=== PATIENT | female | born 1935 | race Caucasian/White ===

== ENCOUNTER 2016-08-06 09:32 | Emergency (ER) | payer OTHER ==
[~2016-08-06] VITALS: Wt 68.0 kg
[~2016-08-06 09:32] MED LIST: ALBU8.5H3 INH; ALEN70TA30 PO; LEVO75TA5 PO; MECL12.574 PO; METO-448 PO
== END 2016-08-06 14:39 | disposition left against medical advice (07) ==
LOC: E/R 09:32
DX: Z53.21 Procedure and treatment not carried out due to patient leaving prior to being seen by health care provider (principal)

== ENCOUNTER 2016-08-06 16:46 | Inpatient (IN) | payer MEDICARE, OTHER ==
[~2016-08-06] VITALS: Ht 157.5 cm; Wt 71.0 kg
[2016-08-06] MEDS ORDERED: ALBUTEROL 0.083% (NEB) 2.5 MG/3 ML AMP INH STA (18:58)
[2016-08-06] MEDS ORDERED: ASPIRIN 325 MG TAB PO STA (18:58)
[2016-08-06] MEDS ORDERED: IPRATROPIUM (NEB) 0.5 MG/2.5 ML AMP INH STA (18:58)
[2016-08-06] MEDS ORDERED: DILTIAZEM-D5W 125MG/125ML DRIP 125 ML IV SCH (19:00)
--- NOTE | 2016-08-06 19:05 | ERA ---
ER Documentation Chief Complaint Date/Time DATE: 08/06/16 TIME: 19:02 Chief Complaint COUGH AND SOB WITH HEADACHE NO CHEST PAIN . MILD DISTRESS. TACHYCARDIC HPI Patient is an 80-year-old female who reports palpitations with dyspnea and cough productive of green phlegm for the last several days. The daughter says she has had a lot of anxiety with this. They saw the care professionals today who told them that she needed a nebulizer. The daughter says that they spoke with her primary care physician who gave her an inhaler but this did not help her symptoms. She reports having had a fever several days ago it was low-grade according to the daughter. She is also had a sore throat with some rhinorrhea. No nausea, vomiting, or diarrhea. Nothing seems to make the symptoms better or worse. She has not been around a when he has been sick. She has not traveled out of the country nor she been on any antibiotic therapy. The remainder of the systems are negative. ROS All systems reviewed and are negative except as per history of present illness. Medications Home Meds Active Scripts Albuterol Sulfate* (Proair HFA*) 8.5 Gm Hfa.aer.ad, 2 PUFF INH Q4H Y for WHEEZING AND SOB, #1 INHALER Prov:DESIRAE YEAGER MD 03/01/16 Reported Medications Levothyroxine Sodium* (Levothyroxine Sodium*) 75 Mcg Tablet, 75 MCG PO BEFORE BREAKFAST, #30 TAB 02/28/16 Alendronate Sodium* (Fosamax*) 70 Mg Tablet, 70 MG PO Q7D, TAB 11/08/14 Metoprolol Tartrate* (Lopressor*) 25 Mg Tab, 25 MG PO BID, TAB 11/08/14 Discontinued Scripts Meclizine Hcl* (Antivert*) 12.5 Mg Tab, 25 MG PO Q6H Y for DIZZINESS, #20 TAB Prov:KEI FOX MD 06/05/16 Allergies Allergies: Coded Allergies: No Known Allergies (Verified Allergy, Unknown, 08/06/16) PMhx/Soc History of Surgery: Yes (right eye cataract surgery) Anesthesia Reaction: No Hx Neurological Disorder: No Hx Respiratory Disorders: Yes (asthma) Hx Cardiac Disorders: Yes (CHF, HTN) Hx Psychiatric Problems: No Hx Miscellaneous Medical Probl: Yes (Right eye cataract surgery) Hx Alcohol Use: No Hx Substance Use: No Hx Tobacco Use: No FmHx Family History: coronary disease Physical Exam Vitals Vital Signs Date Time Temp Pulse Resp B/P Pulse Ox O2 Delivery O2 Flow Rate FiO2 08/06/16 19:49 Nasal Cannula 2 08/06/16 19:46 98 17 114/64 100 Room Air 08/06/16 19:27 99 18 98 21 08/06/16 17:45 99.5 79 24 121/58 98 Physical Exam Const: [] Well-developed well-nourished female sitting in a wheelchair with mild tachypnea Head: Atraumatic normocephalic Eyes: Normal Conjunctiva ENT: Normal External Ears, Nose and Mouth. Neck: Full range of motion..~ No meningismus. Resp: Mild inspiratory and expiratory wheezing noted diffusely with mild tachypnea, no retractions or nasal flaring noted Cardio: Irregular, intermittently tachycardic Abd: Soft, non tender, non distended. Normal bowel sounds Skin: No petechiae or rashes Back: No midline or flank tenderness Ext: No cyanosis, or edema, no calf pain Neur: Awake and alert oriented 3 with a GCS of 15 Psych: Normal Mood and Affect Result Diagram: 08/06/16193208/06/161932 Results 24 hrs Laboratory Tests Test 08/06/16 19:33 Activated Partial Thromboplast Time 25.9Sec Alanine Aminotransferase (ALT/SGPT) 17IU/L Albumin 3.5g/dl Albumin/Globulin Ratio 1.02 Alkaline Phosphatase 84IU/L Anion Gap 19 Aspartate Amino Transf (AST/SGOT) 31IU/L B-Type Natriuretic Peptide 4770PG/ML Basophils # 0.010^3/ul Basophils % 0.2% Blood Morphology Comment Blood Urea Nitrogen 23mg/dl Calcium Level 8.8mg/dl Carbon Dioxide Level 24mmol/L Chloride Level 106mmol/L Creatinine 0.92mg/dl Direct Bilirubin 0.00mg/dl Eosinophils # 0.210^3/ul Eosinophils % 1.8% Globulin 3.40g/dl Glucose Level 150mg/dl Hematocrit 42.1% Hemoglobin 13.8g/dl INR International Normalized Ratio 1.13 Indirect Bilirubin 0.1mg/dl Lymphocytes # 1.210^3/ul Lymphocytes % 12.7% Mean Corpuscular Hemoglobin 32.8pg Mean Corpuscular Hemoglobin Concent 32.7g/dl Mean Corpuscular Volume 100.3fl Mean Platelet Volume 8.6fl Monocytes # 0.610^3/ul Monocytes % 6.4% Neutrophils # 7.810^3/ul Neutrophils % 78.9% Nucleated Red Blood Cells # 0.010^3/ul Nucleated Red Blood Cells % 0.0/100WBC Platelet Count 99618^3/UL Potassium Level 3.7mmol/L Prothrombin Time 14.5Sec Prothrombin Time Ratio 1.1 Red Blood Count 4.2010^6/ul Red Cell Distribution Width 16.0% Sodium Level 145mmol/L Total Bilirubin 0.1mg/dl Total Protein 6.9g/dl Troponin I < 0.012ng/ml White Blood Count 9.810^3/ul Current Medications Medications (Trade) Dose Ordered Sig/Camille Route PRN Reason Start Time Stop Time Status Last Admin Dose Admin Aspirin (Aspirin) 325 mg ONCE STAT PO 08/06/16 18:58 08/06/16 19:03 DC 08/06/16 19:41 Albuterol (Proventil 0.083% (Neb)) 2.5 mg ONCE STAT INH 08/06/16 18:58 08/06/16 19:03 DC 08/06/16 19:26 Ipratropium [place] 0.5 mg 0.5 mg ONCE STAT INH 08/06/16 18:58 08/06/16 19:03 DC 08/06/16 19:27 Diltiazem HCl (Cardizem-D5W 125 Mg/125 ml Drip) 125 ml @ 5 mls/hr TITRATE IV 08/06/16 19:00 Furosemide 40 mg 40 mg ONCE ONCE IV 08/06/16 20:30 08/06/16 20:31 DC 08/06/16 20:22 Ceftriaxone Sodium 50 ml @ 100 mls/hr ONCE ONCE IVPB 08/06/16 21:00 08/06/16 21:29 08/06/16 20:41 Azithromycin/ Sodium Chloride (Zithromax/NS) 250 ml @ 250 mls/hr NOW ONCE IVPB 08/06/16 21:00 08/06/16 21:59 Ondansetron HCl (Zofran Inj) 4 mg ER BRIDGE PRN IV NAUSEA AND/OR VOMITING 08/06/16 21:00 2/7/17 20:59 Acetaminophen (Tylenol Tab) 650 mg ER BRIDGE PRN PO MILD PAIN/FEVER 08/06/16 21:00 08/07/16 20:59 Procedures/MDM Differential includes but is not limited to bronchitis, pneumonia, congestive heart failure, COPD, asthma, viral respiratory illness, atrial fibrillation EKG shows atrial fibrillation with RVR at approximately 135 bpm, right ventricular conduction delay, no evidence for acute ischemia, no old EKG available for comparison Repeat EKG performed an hour and a half later shows atrial fibrillation with RVR at 110 bpm, right bundle branch block, no evidence for acute ischemia, no significant changes otherwise noted Chest x-ray shows evidence for COPD without any evidence for acute pneumonia or bronchitis, no pulmonary edema noted, no pleural effusions 2044: Patient did not require the diltiazem drip that was initially ordered IV as her heart rate has remained around 100. Her wheezing has improved after breathing treatment. I have ordered IV Lasix for her as well as IV antibiotics. I have also consulted primary care medicine to have her admitted for further evaluation and treatment for new onset atrial fibrillation. Departure Diagnosis: Primary Impression: Afib Qualified Code: I48.0 - Paroxysmal atrial fibrillation Additional Impressions: CHF (congestive heart failure) Qualified Code: I50.20 - Systolic congestive heart failure, unspecified congestive heart failure chronicity COPD exacerbation Bronchitis Condition: THEE Juárez Aug 06, 2016 19:05
--- NOTE | 2016-08-06 19:33 | RADRPT ---
PROCEDURE: XR Chest. CLINICAL INDICATION: Chest pain. TECHNIQUE: Single frontal view of the chest was obtained COMPARISON: Plain film chest dated 06/05/2016. FINDINGS: Prominent cardiomegaly with atherosclerotic calcifications in the thoracic aorta. Question rib inju mejia with possible pleural thickening at the lateral right lung base, mildly more prominent over int erval, perhaps secondary to differences in plane film technique. Otherwise, there is no evident acut e pulmonary disease. There may be chronic centrolobular emphysema. There is no pleural effusion or pneumothorax. Demineralization limits evaluation of fine osseous detail IMPRESSION: 1. Prominent cardiomegaly with atherosclerotic calcifications in the thoracic aorta. 2. Likely changes of chronic centrolobular emphysema, and otherwise, no evident acute pulmonary dis ease. 3. Questioned remote rib injury is at the lateral right lung base. RPTAT: [facility] Physician Aida Date Time Electronically viewed and signed by Physician Aida on 08/06/2016 19:33 RS/
[2016-08-06 19:45] LABS: BASOPHILS % 0.2 % (0.0-2.0); EOSINOPHILS # 0.2 10^3/ul (0.0-0.5); EOSINOPHILS % 1.8 % (0.0-7.0); HEMATOCRIT 42.1 % (37.0-47.0); HEMOGLOBIN 13.8 g/dl (12.0-16.0); LYMPHOCYTES # 1.2 10^3/ul (0.8-2.9); LYMPHOCYTES % 12.7 % (15.0-51.0); MEAN CORPUSCULAR HEMOGLOBIN 32.8 pg (29.0-33.0); MEAN CORPUSCULAR HGB CONC 32.7 g/dl (32.0-37.0); MEAN CORPUSCULAR VOLUME 100.3 fl (82.0-101.0); MEAN PLATELET VOLUME 8.6 fl (7.4-10.4); MONOCYTE # 0.6 10^3/ul (0.3-0.9); MONOCYTES % 6.4 % (0.0-11.0); NEUTROPHIL # 7.8 10^3/ul (1.6-7.5); NEUTROPHILS % 78.9 % (39.0-77.0); PLATELET COUNT 159 10^3/UL (140-440); UNCORRECTED WBC 9.8 10^3/ul (4.8-10.8); WHITE BLOOD COUNT 9.8 10^3/ul (4.8-10.8)
[2016-08-06 19:54] LABS: ALBUMIN 3.5 g/dl (3.3-4.9); CHLORIDE 106 mmol/L (97-110); POTASSIUM 3.7 mmol/L (3.5-5.1); SODIUM 145 mmol/L (135-144)
[2016-08-06 19:56] LABS: BILIRUBIN,INDIRECT 0.1 mg/dl (0-1.1); BILIRUBIN,TOTAL 0.1 mg/dl (0.2-1.3); CREATININE 0.92 mg/dl (0.44-1.00); INR 1.13; PARTIAL THROMBOPLASTIN TIME 25.9 Sec (25.0-35.0); PROTIME 14.5 Sec (12.2-14.2); PT RATIO 1.1
[2016-08-06 19:57] LABS: ALANINE AMINOTRANSFERASE 17 IU/L (13-69); ALBUMIN/GLOBULIN RATIO 1.02; ALKALINE PHOSPHATASE 84 IU/L (42-121); ANION GAP 19 (8-16); ASPARTATE AMINO TRANSFERASE 31 IU/L (15-46); BLOOD UREA NITROGEN 23 mg/dl (7-20); CALCIUM 8.8 mg/dl (8.4-10.2); CARBON DIOXIDE 24 mmol/L (21-31); GLUCOSE 150 mg/dl (70-220); TOTAL PROTEIN 6.9 g/dl (6.1-8.1)
[2016-08-06 20:02] LABS: CONDITION 1; LH ANALYZER COMMENTS 1
[2016-08-06 20:06] LABS: B-TYPE NATRIURETIC PEPTIDE 4770 PG/ML (0-450)
[2016-08-06 20:10] LABS: TROPONIN-I < 0.012 ng/ml (0.00-0.12)
[2016-08-06] MEDS ORDERED: FUROSEMIDE 40 MG INJ IV ONE (20:30)
--- NOTE | 2016-08-06 20:56 | HP ---
Date/Time of Note Date/Time of Note DATE: 08/06/16 TIME: 20:34 Assessment/Plan VTE Prophylaxis VTE Prophylaxis Intervention: LMWH Lines/Catheters IV Catheter Type (from Nrs): Saline Lock Assessment/Plan Assessment/Plan PROBLEMS: 1. CHF exacerbation 2. Acute COPD Exacerbation 3. Acute bronchitis 4. Chronic Atrial fibrillation with suboptimal rate control 5. R/o ACS 6. HTN: controlled 7. Hypothyroidism 8. Pulm HTN on last echo 9. Moderate Aortic and tricuspid regurgitation 10. Chronic Constipation PLAN: Admit telemetry Cardiology consult Gentle diuresis Scheduled and PRN bronchodilator therapy / Empiric abx / blood and resp cultures Will use CCB to try to improve rate control with afib Review anticoagulation for AFib if no contraindications with daughter and cardiology Continue Synthroid and get TSH to assess control Good Bowel regimen Supportive care PROPHYLAXIS: Lovenox / PPI HPI/ROS Admit Date/Time Admit Date/Time 08/06/16 Hx of Present Illness PRESENTING COMPLAINT: Cough and SOB HISTORY OF PRESENTING COMPLAINT: 80 yo F brought in by her daughter for cough, congestion and palpitations. She had seen her marble polisher yesterday (patient does not know the name) who had told them she might have bronchitis. She was advised to go to ER if symptoms worsened. She denies fever but has loud wheezing ,. She has been having lots of coughing and phlegm production. Previous XRays show a hx of emphysema, but patient is not on any home inhalers or nebulizers. Patient is a poor historian and daughter might need to confirm findings when available. Patient states though that she has never smoked. She feels more comfortable now. + chest pressure, but not pain , no more palpitations. She was found to be in AFib with a mildly increased rate. Patient is not on anticoagulation and the reason is unclear at this time. ROS Constitutional: febrile Respiratory: cough, pleuritic pain, shortness of breath, sputum, wheezing Cardiovascular: palpitations Gastrointestinal: decreased appetite Genitourinary: No bleeding, No dysuria Skin: No erythema PMH/Family/Social Past Medical History * COPD (emphysema) * CHF * HTN * Osteoporosis * Chronic constipation * HYpothyroidism * Chronic Moderate aortic and tricuspid regurgitation * Pul HTN Past Surgical History * R eye cataract surgery Social History Alcohol Use: none Smoking Status: Never smoker Drug Use: none Exam/Review of Systems Vital Signs Vitals VS - Last 72 Hours, by Label Date Time Temp Pulse Resp B/P Pulse Ox O2 Delivery O2 Flow Rate FiO2 08/06/16 19:49 Nasal Cannula 2 08/06/16 19:46 98 17 114/64 100 Room Air 08/06/16 19:27 99 18 98 21 08/06/16 17:45 99.5 79 24 121/58 98 Vital Signs Date Time Temp Pulse Resp B/P Pulse Ox O2 Delivery O2 Flow Rate FiO2 08/06/16 19:49 Nasal Cannula 2 08/06/16 19:46 98 17 114/64 100 08/06/16 19:27 21 08/06/16 17:45 99.5 Exam Constitutional: alert, frail, oriented, other (elderly) Eyes: PERRL Respiratory: diminished breath sounds, wheezing Cardiovascular: irregular rhythm, murmurs/extra sounds Gastrointestinal: bowel sounds, non-tender, soft Extremities: No edema Neurological: lethargic Skin: No rash or lesions Labs Result Diagram: 08/06/16193208/06/161932 Medications Medications Current Medications Diltiazem HCl (Cardizem-D5W 125 Mg/125 ml Drip) 125 ml @ 5 mls/hr TITRATE IV ; Start 08/06/16 at 19:00 Procedures Procedures Laboratory Tests Test 08/06/16 19:33 Activated Partial Thromboplast Time 25.9Sec Alanine Aminotransferase (ALT/SGPT) 17IU/L Albumin 3.5g/dl Albumin/Globulin Ratio 1.02 Alkaline Phosphatase 84IU/L Anion Gap 19 Aspartate Amino Transf (AST/SGOT) 31IU/L B-Type Natriuretic Peptide 4770PG/ML Basophils # 0.010^3/ul Basophils % 0.2% Blood Morphology Comment Blood Urea Nitrogen 23mg/dl Calcium Level 8.8mg/dl Carbon Dioxide Level 24mmol/L Chloride Level 106mmol/L Creatinine 0.92mg/dl Direct Bilirubin 0.00mg/dl Eosinophils # 0.210^3/ul Eosinophils % 1.8% Globulin 3.40g/dl Glucose Level 150mg/dl Hematocrit 42.1% Hemoglobin 13.8g/dl INR International Normalized Ratio 1.13 Indirect Bilirubin 0.1mg/dl Lymphocytes # 1.210^3/ul Lymphocytes % 12.7% Mean Corpuscular Hemoglobin 32.8pg Mean Corpuscular Hemoglobin Concent 32.7g/dl Mean Corpuscular Volume 100.3fl Mean Platelet Volume 8.6fl Monocytes # 0.610^3/ul Monocytes % 6.4% Neutrophils # 7.810^3/ul Neutrophils % 78.9% Nucleated Red Blood Cells # 0.010^3/ul Nucleated Red Blood Cells % 0.0/100WBC Platelet Count 70258^3/UL Potassium Level 3.7mmol/L Prothrombin Time 14.5Sec Prothrombin Time Ratio 1.1 Red Blood Count 4.2010^6/ul Red Cell Distribution Width 16.0% Sodium Level 145mmol/L Total Bilirubin 0.1mg/dl Total Protein 6.9g/dl Troponin I < 0.012ng/ml White Blood Count 9.810^3/ul ER INTERVENTIONS Medications (Trade) Dose Ordered Sig/Camille Route PRN Reason Start Time Stop Time Status Last Admin Dose Admin Aspirin (Aspirin) 325 mg ONCE STAT PO 08/06/16 18:58 08/06/16 19:03 DC 08/06/16 19:41 325 MG Albuterol (Proventil 0.083% (Neb)) 2.5 mg ONCE STAT INH 08/06/16 18:58 08/06/16 19:03 DC 08/06/16 19:26 2.5 MG Ipratropium [place] 0.5 mg 0.5 mg ONCE STAT INH 08/06/16 18:58 08/06/16 19:03 DC 08/06/16 19:27 0.5 MG Diltiazem HCl (Cardizem-D5W 125 Mg/125 ml Drip) 125 ml @ 5 mls/hr TITRATE IV 08/06/16 19:00 Furosemide (Lasix) 40 mg ONCE ONCE IV 08/06/16 20:30 08/06/16 20:31 DC 08/06/16 20:22 40 MG PROCEDURE: XR Chest. CLINICAL INDICATION: Chest pain. TECHNIQUE: Single frontal view of the chest was obtained COMPARISON: Plain film chest dated 06/05/2016. FINDINGS: Prominent cardiomegaly with atherosclerotic calcifications in the thoracic aorta. Question rib injuries with possible pleural thickening at the lateral right lung base, mildly more prominent over interval, perhaps secondary to differences in plane film technique. Otherwise, there is no evident acute pulmonary disease. There may be chronic centrolobular emphysema. There is no pleural effusion or pneumothorax. Demineralization limits evaluation of fine osseous detail IMPRESSION: 1. Prominent cardiomegaly with atherosclerotic calcifications in the thoracic aorta. 2. Likely changes of chronic centrolobular emphysema, and otherwise, no evident acute pulmonary disease. 3. Questioned remote rib injury is at the lateral right lung base. RPTAT: [facility] Jenise Bell Physician Date Time Electronically viewed and signed by Jenise Bell Physician on 08/06/2016 19:33 RS/ CC: THEE VALDEZ Echocardiogram Report Patient Name: RACHEL ALBRIGHT Gender: Female Date: 1935 Study Date: 29-Feb-2016 Dairy Farmer: Norman Olguin RDCS Location: [facility] Ref. Physician: CHAUNCEY GRAYSON Quality: Technically Difficult Study Procedures: Transthoracic echocardiogram with complete 2D, M-Mode, and doppler examination. Indications: Congestive Heart Failure. 2D/M Mode Doppler Measurement Value Normal Ranges Measurement Value Normal Ranges LVIDd 2D 3.6 3.5 - 5.6 cm AV Peak Har[place] 1.2 m/sec LVIDs 2D 2.6 2.1 - 4.1 cm AV Peak PG 6.0 mmHg FS 2D 28.3 % AI Peak PG 94.0 mmHg LVPWd 2D 0.9 0.6 - 1.1 cm AI Peak Har[place] 4.9 m/sec IVSd 2D 1.0 0.6 - 1.1 cm AI PHT 797.0 msec IVS/LVPW 2D 1.1 LVOT Peak Harmeet 0.9 m/sec AoR Diam 2D 2.9 2.0 - 3.7 cm LVOT Peak PG 3.0 mmHg LA/Ao 2D 1 0 - 1 MV E Peak Har[place] 0.9 m/sec EDV 2D 48.2 cm3 MV Decel Time 201 msec ESV 2D 17.8 cm3 TR Peak Harmeet 2.5 m/sec LA Dimen 2D 2.9 2.3 - 4.0 cm TR Peak PG 24.0 mmHg RVSP 44.0 mmHg Findings Left Ventricle: Normal left ventricular systolic function. Normal left ventricular cavity size. Normal left ventricular wall thickness. Ejection fraction is visually estimated at 5560 %. Right Ventricle: Normal right ventricular size. Normal right ventricular systolic function. Left Atrium: The left atrium is normal in size. Right Atrium: The right atrium is normal in size. Mitral Valve: Mitral valve leaflets appear mildly thickened. Mild mitral annular calcification. Mild mitral valve regurgitation. Aortic Valve: No hemodynamically significant aortic stenosis by doppler. Aortic cusps appear mildly calcified. Moderate aortic valve regurgitation. Tricuspid Valve: Estimated peak PA systolic pressure 44 mmHg. There is moderate tricuspid regurgitation. Pulmonic Valve: Normal pulmonic valve appearance. Pericardium: Normal pericardium with no significant pericardial effusion. Aorta: Normal aortic root. IVC: Dilated IVC without respiratory collapse consistent with elevated right atrial pressure. Pulmonary Artery: Normal pulmonary artery size. Conclusions 1. The left ventricle is normal in size and systolic function. 2. Estimated left ventricular ejection fraction of 55-60%. 3. Aortic valve sclerosis without stenosis. Moderate aortic regurgitation. 4. Moderate tricuspid regurgitation. Electronically Signed By: Dante Maloney 29-Feb-2016 15:35:37 [id number] CHRISTIN on my review * Afib +RVR + Bifascicular block * abnormal EKG ADONIS SOMERS Aug 06, 2016 20:45
[2016-08-06] MEDS ORDERED: ACETAMINOPHEN 325 MG TAB PO PRN (21:00)
[2016-08-06] MEDS ORDERED: DILTIAZEM 30 MG TAB GTB SCH (21:00)
[2016-08-06] MEDS ORDERED: METHYLPREDNISOLONE 125 MG INJ IV ONE (21:00)
[2016-08-06] MEDS ORDERED: AZITHROMYCIN 500 MG in SOD CHLORIDE 0.9% 250 ML IVPB ONE (21:00)
[2016-08-06] MEDS ORDERED: CEFTRIAXONE 1 GM/50 ML (PMX) 50 ML IVPB ONE (21:00)
[2016-08-06] MEDS ORDERED: ONDANSETRON 4 MG INJ IV PRN ×2 (21:00)
[2016-08-06] MEDS: ALBUTEROL/IPRATROPIUM (NEB) 3 ML AMP HHN SCH (22:22)
[2016-08-06] MEDS: DILTIAZEM 30 MG TAB PO SCH (23:31)
[2016-08-07] VITALS (14 sets, daily range): BP systolic 98–142; BP diastolic 56–74; PULSE 69–157; RESP 16–20; Ht 157.5 cm; Wt 71.0 kg
[2016-08-07 01:22] LABS: CREATINE KINASE 149 IU/L (23-200)
[2016-08-07 01:47] LABS: TROPONIN-I < 0.012 ng/ml (0.00-0.12)
[2016-08-07] MEDS: ALBUTEROL/IPRATROPIUM (NEB) 3 ML AMP HHN PRN (05:39)
[2016-08-07] MEDS: LEVOTHYROXINE 75 MCG TAB PO SCH (06:46)
[2016-08-07] MEDS: DILTIAZEM 30 MG TAB PO SCH ×3 (06:48→18:15)
[2016-08-07] MEDS: ALENDRONATE 70 MG TAB PO SCH (07:30)
[2016-08-07 07:41] LABS: POTASSIUM 4.2 mmol/L (3.5-5.1)
[2016-08-07 07:44] LABS: CREATININE 0.81 mg/dl (0.44-1.00)
[2016-08-07 07:45] LABS: CALCIUM 8.2 mg/dl (8.4-10.2); CHOL/HDL RATIO 3.4 RATIO; MAGNESIUM 1.8 mg/dl (1.7-2.5)
[2016-08-07 07:50] LABS: CREATINE KINASE 109 IU/L (23-200)
[2016-08-07 07:51] LABS: BASOPHILS % 0.1 % (0.0-2.0); HEMATOCRIT 38.9 % (37.0-47.0); HEMOGLOBIN 12.9 g/dl (12.0-16.0); LYMPHOCYTES # 0.3 10^3/ul (0.8-2.9); LYMPHOCYTES % 5.6 % (15.0-51.0); MEAN CORPUSCULAR HEMOGLOBIN 32.9 pg (29.0-33.0); MEAN CORPUSCULAR HGB CONC 33.1 g/dl (32.0-37.0); MEAN CORPUSCULAR VOLUME 99.4 fl (82.0-101.0); MEAN PLATELET VOLUME 8.9 fl (7.4-10.4); MONOCYTES % 0.5 % (0.0-11.0); NEUTROPHIL # 5.3 10^3/ul (1.6-7.5); NEUTROPHILS % 93.8 % (39.0-77.0); PLATELET COUNT 157 10^3/UL (140-440); RED BLOOD COUNT 3.91 10^6/ul (4.20-5.40); UNCORRECTED WBC 5.6 10^3/ul (4.8-10.8); WHITE BLOOD COUNT 5.6 10^3/ul (4.8-10.8)
[2016-08-07 07:53] LABS: CK-MB 3.32 ng/ml (0.0-2.4)
[2016-08-07 07:58] LABS: CONDITION 1; LH ANALYZER COMMENTS 1
[2016-08-07 08:00] LABS: TROPONIN-I < 0.012 ng/ml (0.00-0.12)
[2016-08-07 08:14] LABS: THYROID STIMULATING HORMONE 1.39 MIU/L (0.465-4.680)
[2016-08-07] MEDS ORDERED: predniSONE 20 MG TAB PO SCH (09:00)
[2016-08-07] MEDS ORDERED: FUROSEMIDE 20 MG INJ IV SCH (09:00)
[2016-08-07] MEDS ORDERED: ENOXAPARIN 40 MG/0.4 ML SYG SC SCH (09:00)
[2016-08-07] MEDS: ASPIRIN (EC) 81 MG TAB PO SCH (09:42)
[2016-08-07] MEDS: ALBUTEROL/IPRATROPIUM (NEB) 3 ML AMP HHN SCH ×4 (10:02→20:07)
--- NOTE | 2016-08-07 11:39 | PN ---
DATE: 08/07/2016 TIME OF EVALUATION: 10:43 a.m. SUBJECTIVE DATA: Complains of dyspnea. Denies any chest pain. OBJECTIVE DATA: VITAL SIGNS: Temperature 98.3, pulse rate 81, respiratory rate 20, blood pressure 129/65, oxygen saturation 99% on low flow O2. GENERAL: This is an elderly, slightly overweight female lying in bed in mild respiratory distress. HEENT: Head normocephalic and atraumatic. Eyes: Anicteric sclerae. Conjunctivae clear. ENT: Nasal septum is midline. Oral mucosa is dry. NECK: Supple. JVD noticed. RESPIRATORY: Bilaterally diminished breath sounds. Minimal use of accessory muscles of respiration. CARDIAC: Irregularly irregular rhythm. ABDOMEN: Soft, nontender and nondistended. Bowel sounds positive in all 4 quadrants. GENITOURINARY: Deferred. EXTREMITIES: No cyanosis, no clubbing, no edema. Peripheral pulses palpable. NEUROLOGIC: The patient is awake, alert and oriented. The patient is primarily Citizen Of [place] speaking. LABORATORY AND DIAGNOSTIC DATA: WBC 5.6, hemoglobin 12.9, hematocrit 38.9, platelet count 157. Sodium 143, potassium 4.0, chloride 105, carbon dioxide 20 , anion gap 20, BUN 20, creatinine 0.81, glucose 154, calcium 8.2, magnesium 1.8. ASSESSMENT AND PLAN: 1. Acute respiratory failure. Hypoxic. Most probably secondary to underlying chronic obstructive pulmonary disease exacerbation with a component of diastolic heart failure. Continue inhaled bronchodilators. Continue supplemental oxygen. 2. Congestive heart failure exacerbation. Acute on chronic. Diastolic dysfunction. Continue diuretics. Pending cardiology evaluation. 3. Atrial fibrillation. Rate controlled. Continue calcium channel blockers. The patient ideally needs to be on anticoagulation. This will be deferred to Cardiology. 4. Pulmonary hypertension. PA pressure of 44 mmHg as per 2D echocardiogram done on 02/29/2016. Continue supplemental oxygen. 5. Essential hypertension. Continue antihypertensives. 6. Hypothyroidism. Continue Synthroid. 7. Osteoporosis. Continue bisphosphonates. 8. Fluid, electrolytes and nutrition. Continue low cholesterol diet. 9. DVT prophylaxis with subcutaneous Lovenox. 10. Gastrointestinal prophylaxis. Histamine-2 receptor blockers. PLAN: Continue telemetry monitoring. Continue current care. Await cardiology evaluation. Case discussed with Dr. Kay. EZEQUIEL KAY MD, AM/JOLANTA Conf#: [id number] [facility]#: [id number] MTDD
--- NOTE | 2016-08-07 15:52 | CONS ---
Date/Time of Note Date/Time of Note DATE: 08/07/16 TIME: 15:46 Assessment/Plan Assessment/Plan Additional Assessment/Plan Shortness of breath likely secondary to COPD exacerbation Mild acute decompensated systolic congestive heart failure Preserved ejection fraction Atrial fibrillation with rapid ventricular rates, improved -Patient with improvement in symptoms after multiple medications. Would continue Cardizem as blood pressure permits. Change Lasix to by mouth. Maintain potassium above 4.0 and magnesium above 2.0. Would start anticoagulation given increased risk of thromboembolic events unless contraindicated. Consultation Date/Type/Reason Admit Date/Time 08/06/16 Type of Consultation: cv Reason for Consultation Shortness of breath and atrial fibrillation Hx of Present Illness This is an 80-year-old female with past medical history of COPD, H fibrillation who presents with 4-5 days of worsening shortness of breath, fevers and chills, productive cough and wheezing. Symptoms have progressively worsened and that when she came to the emergency room. After being given multiple medications in the ER including a pleasant treatments, patient with significant improvement. She still complains of cough she is mildly productive of the phlegm has decreased. She denies any chest pain. Shortness of breath is associated with wheezing. She denies a palpitations or dizziness. 12 point review of systems was performed with all pertinent positives and negatives mentioned above and all else is negative Respiratory: cough, pleuritic pain, shortness of breath, sputum, wheezing Cardiovascular: palpitations Gastrointestinal: decreased appetite Genitourinary: No bleeding, No dysuria Skin: No erythema Past Medical History COPD Atrial fibrillation Medical History: congestive heart failure, high cholesterol, hypertension Past Surgical History Cataract surgery Family History Significant Family History: no pertinent family hx Social History Alcohol Use: none Smoking Status: Never smoker Drug Use: none Exam/Review of Systems Vital Signs Vitals Vital Signs Date Time Temp Pulse Resp B/P Pulse Ox O2 Delivery O2 Flow Rate FiO2 08/07/16 14:12 157 08/07/16 11:37 98.3 20 98/56 98 08/07/16 10:03 Nasal Cannula 2.0 08/07/16 05:40 28 Intake and Output 08/06/16 08/06/16 08/07/16 15:00 23:00 07:00 Intake Total 50 ml 140 ml Output Total 150 ml Balance 50 ml -10 ml Exam Coughing at times throughout examination Constitutional: alert, obese, oriented Head: normocephalic Neck: supple Respiratory: other (course rockers breath sounds bilaterally with and expiratory wheezing) Cardiovascular: irregular rhythm, other (S1-S2 heard), systolic murmur Gastrointestinal: bowel sounds, non-tender, other (no guarding), soft Extremities: other (no edema) Results Result Diagram: 08/07/16 0708 08/07/16 0708 Results 24 hrs Laboratory Tests Test 08/06/16 19:33 08/07/16 01:05 08/07/16 07:08 Activated Partial Thromboplast Time 25.9 Alanine Aminotransferase (ALT/SGPT) 17 Albumin 3.5 Albumin/Globulin Ratio 1.02 Alkaline Phosphatase 84 Anion Gap 19 H 20 H Aspartate Amino Transf (AST/SGOT) 31 B-Type Natriuretic Peptide 4770 H Basophils # 0.0 0.0 Basophils % 0.2 0.1 Blood Morphology Comment Blood Urea Nitrogen 23 H 20 Calcium Level 8.8 8.2 L Carbon Dioxide Level 24 22 Chloride Level 106 105 Creatinine 0.92 0.81 Direct Bilirubin 0.00 Eosinophils # 0.2 0.0 Eosinophils % 1.8 0.0 Globulin 3.40 H Glucose Level 150 154 Hematocrit 42.1 38.9 Hemoglobin 13.8 12.9 INR International Normalized Ratio 1.13 Indirect Bilirubin 0.1 Lymphocytes # 1.2 0.3 L Lymphocytes % 12.7 L 5.6 L Mean Corpuscular Hemoglobin 32.8 32.9 Mean Corpuscular Hemoglobin Concent 32.7 33.1 Mean Corpuscular Volume 100.3 99.4 Mean Platelet Volume 8.6 8.9 Monocytes # 0.6 0.0 L Monocytes % 6.4 0.5 Neutrophils # 7.8 H 5.3 Neutrophils % 78.9 H 93.8 H Nucleated Red Blood Cells # 0.0 0.0 Nucleated Red Blood Cells % 0.0 0.0 Platelet Count 159 157 Potassium Level 3.7 4.2 Prothrombin Time 14.5 H Prothrombin Time Ratio 1.1 Red Blood Count 4.20 3.91 L Red Cell Distribution Width 16.0 H 16.0 H Sodium Level 145 H 143 Total Bilirubin 0.1 L Total Protein 6.9 Troponin I < 0.012 < 0.012 < 0.012 White Blood Count 9.8 # 5.6 # Creatine Kinase 149 109 Creatine Kinase Index 2.9 3.0 Creatinine Kinase MB (Mass) 4.30 H 3.32 H Cholesterol Level 188 Cholesterol/HDL Ratio 3.4 HDL Cholesterol 54 LDL Cholesterol, Calculated 119 Magnesium Level 1.8 Thyroid Stimulating Hormone (TSH) 1.390 Triglycerides Level 77 Medications Medications Current Medications Diltiazem HCl (Cardizem-D5W 125 Mg/125 ml Drip) 125 ml @ 5 mls/hr TITRATE IV ; Start 08/06/16 at 19:00 Alendronate Sodium (Fosamax) 70 mg Tu@0730 PO ; Start 08/07/16 at 07:30 Aspirin (Halfprin) 81 mg DAILY PO Last administered on 08/07/16 09:42; Admin Dose 81 MG; Start 08/07/16 at 09:00 Enoxaparin Sodium (Lovenox) 40 mg DAILY SC Last administered on 08/07/16 10:01 ; Admin Dose 40 MG; Start 08/07/16 at 09:00 Ondansetron HCl (Zofran Inj) 4 mg Q6H PRN IV NAUSEA AND/OR VOMITING; Start 08/06 at 21:00 Docusate Sodium (Colace) 250 mg DAILY PRN PO CONSTIPATION; Start 08/06/16 at 21: 00 Senna 2 tab 2 tab QHS PRN PO CONSTIPATION; Start 08/06/16 at 21:00 Ceftriaxone Sodium 50 ml @ 100 mls/hr Q24H IVPB ; Start 08/07/16 at 21:00 Azithromycin (Zithromax 500mg/ NS (Pmx)) 250 ml @ 250 mls/hr Q24H IVPB ; Start 08/07/16 at 22:00 Furosemide (Lasix) 20 mg DAILY IV Last administered on 08/07/16 09:47; Admin Dose 20 MG; Start 08/07/16 at 09:00 Prednisone (Prednisone) 20 mg DAILY PO Last administered on 08/07/16 09:42; Admin Dose 20 MG; Start 08/07/16 at 09:00 Diltiazem HCl (Cardizem) 30 mg Q6 PO Last administered on 08/07/16 06:48; Admin Dose 30 MG; Start 08/06/16 at 21:20 Famotidine (Pepcid) 10 mg BID PO ; Start 08/07/16 at 21:00 Procedures Procedures ECG done yesterday demonstrates atrial fibrillation at 136 bpm, right bundle branch block, left anterior fascicular block, QRS 138 milliseconds, no significant ischemic STT wave abnormalities Paul Mora DO Aug 07, 2016 15:52
[2016-08-07] MEDS ORDERED: MAGNESIUM SULFATE 2 GM/50 ML 50 ML IVPB ONE (16:00)
[2016-08-07] MEDS: ACETAMINOPHEN 325 MG TAB PO PRN (19:49)
[2016-08-07] MEDS: APIXABAN 5 MG TABLET PO SCH (20:46)
[2016-08-07] MEDS: FAMOTIDINE 20 MG TAB PO SCH (20:46)
[2016-08-07] MEDS: CEFTRIAXONE 1 GM/50 ML (PMX) 50 ML IVPB SCH (22:07)
[2016-08-07] MEDS: AZITHROMYCIN 500MG/NS (PMX) 250 ML IVPB SCH (22:55)
[2016-08-08] VITALS (14 sets, daily range): BP systolic 107–138; BP diastolic 58–76; PULSE 77–134; RESP 16–21
[2016-08-08] MEDS: DILTIAZEM 30 MG TAB PO SCH ×5 (00:17→23:17)
[2016-08-08] MEDS: ALBUTEROL/IPRATROPIUM (NEB) 3 ML AMP HHN PRN (06:09)
[2016-08-08] MEDS: LEVOTHYROXINE 75 MCG TAB PO SCH (06:17)
[2016-08-08] MEDS ORDERED: METHYLPREDNISOLONE 125 MG INJ IV ONE (07:00)
[2016-08-08 07:12] LABS: BASOPHILS % 0.1 % (0.0-2.0); HEMATOCRIT 38.5 % (37.0-47.0); HEMOGLOBIN 12.9 g/dl (12.0-16.0); LYMPHOCYTES # 0.7 10^3/ul (0.8-2.9); LYMPHOCYTES % 5.8 % (15.0-51.0); MEAN CORPUSCULAR HEMOGLOBIN 33.4 pg (29.0-33.0); MEAN CORPUSCULAR HGB CONC 33.5 g/dl (32.0-37.0); MEAN CORPUSCULAR VOLUME 99.9 fl (82.0-101.0); MEAN PLATELET VOLUME 8.8 fl (7.4-10.4); MONOCYTE # 0.9 10^3/ul (0.3-0.9); MONOCYTES % 6.7 % (0.0-11.0); NEUTROPHIL # 11.2 10^3/ul (1.6-7.5); NEUTROPHILS % 87.4 % (39.0-77.0); PLATELET COUNT 160 10^3/UL (140-440); RED BLOOD COUNT 3.86 10^6/ul (4.20-5.40); RED CELL DISTRIBUTION WIDTH 16.1 % (11.5-14.5); UNCORRECTED WBC 12.9 10^3/ul (4.8-10.8); WHITE BLOOD COUNT 12.9 10^3/ul (4.8-10.8)
[2016-08-08 07:17] LABS: POTASSIUM 4.2 mmol/L (3.5-5.1)
[2016-08-08 07:19] LABS: CONDITION 1; LH ANALYZER COMMENTS 1
[2016-08-08 07:20] LABS: CREATININE 0.82 mg/dl (0.44-1.00)
[2016-08-08 07:21] LABS: CALCIUM 8.3 mg/dl (8.4-10.2); MAGNESIUM 2.7 mg/dl (1.7-2.5); PHOSPHORUS 3.1 mg/dl (2.5-4.9)
[2016-08-08] MEDS: ALBUTEROL/IPRATROPIUM (NEB) 3 ML AMP HHN SCH ×4 (08:42→20:05)
[2016-08-08] MEDS: FAMOTIDINE 20 MG TAB PO SCH ×2 (09:00→20:13)
[2016-08-08] MEDS: APIXABAN 5 MG TABLET PO SCH ×3 (09:13→20:13)
[2016-08-08] MEDS: ASPIRIN (EC) 81 MG TAB PO SCH ×2 (09:13→09:27)
[2016-08-08] MEDS: FUROSEMIDE 20 MG TAB PO SCH ×2 (09:13→09:27)
--- NOTE | 2016-08-08 09:24 | PN ---
Date/Time of Note Date/Time of Note DATE: 08/08/16 TIME: 09:23 Assessment/Plan VTE Prophylaxis VTE Prophylaxis Intervention: other (Factor Xa inhibitors) Lines/Catheters IV [facility]ter [facility]from [facility] Urinary Cath still in place: No Assessment/Plan Chief Complaint/Hosp Course 1. Acute respiratory failure. Hypoxic. Most probably secondary to underlying chronic obstructive pulmonary disease exacerbation with a component of diastolic heart failure. Continue inhaled bronchodilators. Continue supplemental oxygen. 2. COPD exacerbation. Continue inhaled bronchodilators. Continue tapering dose of steroids. Will involve pulmonology on the case. 3. Atrial fibrillation. Rate controlled. Continue calcium channel blockers. The patient on therapeutic anticoagulation. 4. Pulmonary hypertension. PA pressure of 44 mmHg as per 2D echocardiogram done on 02/29/2016. Continue supplemental oxygen. 5. Essential hypertension. Continue antihypertensives. 6. Hypothyroidism. Continue Synthroid. 7. Osteoporosis. Continue bisphosphonates. 8. Fluid, electrolytes and nutrition. Continue low cholesterol diet. 9. DVT prophylaxis. On therapeutic anticoagulation with factor Xa inhibitors. 10. Gastrointestinal prophylaxis. Histamine-2 receptor blockers. PLAN: Continue telemetry monitoring. Continue current care. Await pulmonology evaluation. Case discussed with Dr. Kay. Problems: Subjective 24 Hr Interval Summary Free Text/Dictation Complains of dyspnea. Denies any chest pain Exam/Review of Systems Vital Signs Vitals Vital Signs Date Time Temp Pulse Resp B/P Pulse Ox O2 Delivery O2 Flow Rate FiO2 08/08/16 08:51 126 08/08/16 08:42 20 97 Nasal Cannula 3.0 08/08/16 08:00 98.2 119/63 08/08/16 06:10 21 Intake and Output 08/07/16 08/07/16 08/08/16 15:00 23:00 07:00 Intake Total 600 ml 450 ml Output Total 150 ml Balance 600 ml 300 ml Exam GENERAL: This is an elderly, slightly overweight female lying in bed in mild respiratory distress. HEENT: Head normocephalic and atraumatic. Eyes: Anicteric sclerae. Conjunctivae clear. ENT: Nasal septum is midline. Oral mucosa is dry. NECK: Supple. JVD noticed. RESPIRATORY: Bilaterally diminished breath sounds. Use of accessory muscles of respiration. Coarse rales. Expiratory wheezing. CARDIAC: Irregularly irregular rhythm. Systolic murmur. ABDOMEN: Soft, nontender and nondistended. Bowel sounds positive in all 4 quadrants. GENITOURINARY: Deferred. EXTREMITIES: No cyanosis, no clubbing, no edema. Peripheral pulses palpable. NEUROLOGIC: The patient is awake, alert and oriented. The patient is primarily Latvian speaking. Results Result Diagram: 08/08/16 0635 08/08/16 0635 Results 24 hrs Laboratory Tests Test 08/08/16 06:35 Anion Gap 15 Basophils # 0.0 Basophils % 0.1 Blood Morphology Comment Blood Urea Nitrogen 23 H Calcium Level 8.3 L Carbon Dioxide Level 26 Chloride Level 104 Creatinine 0.82 Eosinophils # 0.0 Eosinophils % 0.0 Glucose Level 112 # Hematocrit 38.5 Hemoglobin 12.9 Lymphocytes # 0.7 L Lymphocytes % 5.8 L Magnesium Level 2.7 H Mean Corpuscular Hemoglobin 33.4 H Mean Corpuscular Hemoglobin Concent 33.5 Mean Corpuscular Volume 99.9 Mean Platelet Volume 8.8 Monocytes # 0.9 Monocytes % 6.7 Neutrophils # 11.2 H Neutrophils % 87.4 H Nucleated Red Blood Cells # 0.0 Nucleated Red Blood Cells % 0.0 Phosphorus Level 3.1 Platelet Count 160 Potassium Level 4.2 Red Blood Count 3.86 L Red Cell Distribution Width 16.1 H Sodium Level 141 White Blood Count 12.9 #H Medications Medications Current Medications Alendronate Sodium (Fosamax) 70 mg Tu@0730 PO ; Start 08/07/16 at 07:30 Aspirin (Halfprin) 81 mg DAILY PO Last administered on 08/08/16 09:13; Admin Dose 81 MG; Start 08/07/16 at 09:00 Ondansetron HCl (Zofran Inj) 4 mg Q6H PRN IV NAUSEA AND/OR VOMITING; Start 08/06 at 21:00 Docusate Sodium (Colace) 250 mg DAILY PRN PO CONSTIPATION; Start 08/06/16 at 21: 00 Senna 2 tab 2 tab QHS PRN PO CONSTIPATION; Start 08/06/16 at 21:00 Ceftriaxone Sodium 50 ml @ 100 mls/hr Q24H IVPB Last administered on 08/07/16 22:07; Admin Dose 100 MLS/HR; Start 08/07/16 at 21:00 Azithromycin (Zithromax 500mg/ NS (Pmx)) 250 ml @ 250 mls/hr Q24H IVPB Last administered on 08/07/16 22:55; Admin Dose 250 MLS/HR; Start 08/07/16 at 22:00 Diltiazem HCl (Cardizem) 30 mg Q6 PO Last administered on 08/08/16 06:18; Admin Dose 30 MG; Start 08/06/16 at 21:20 Famotidine (Pepcid) 10 mg BID PO Last administered on 08/07/16 20:46; Admin Dose 10 MG; Start 08/07/16 at 21:00 Apixaban (Eliquis) 5 mg BID PO Last administered on 08/08/16 09:13; Admin Dose 5 MG; Start 08/07/16 at 21:00 Furosemide (Lasix) 20 mg DAILY PO Last administered on 08/08/16 09:13; Admin Dose 20 MG; Start 08/08/16 at 09:00 Acetaminophen (Tylenol Tab) 650 mg Q6H PRN PO PAIN AND OR ELEVATED TEMP Last administered on 08/07/16 19:49; Admin Dose 650 MG; Start 08/07/16 at 20:00 Methylprednisolone Sodium Succinate (Solu-Medrol) 40 mg Q8 IV ; Start 08/08/16 at 14:00 EZEQUIEL WOOD NP Aug 08, 2016 09:24
--- NOTE | 2016-08-08 11:26 | CONS ---
Date/Time of Note Date/Time of Note DATE: 08/08/16 TIME: 11:19 Assessment/Plan Assessment/Plan Additional Assessment/Plan Assessment and recommendations; 1. Patient admitted with COPD exacerbation and acute bronchitis. 2. Stable atrial fibrillation. 3. Compensated CHF. Continue current treatment. Consultation Date/Type/Reason Admit Date/Time 08/06/16 Date of Consultation: Aug 08, 2016 Type of Consultation: Pulmonary Reason for Consultation Pulmonary consultation obtained for evaluation of severe COPD exacerbation and acute bronchitis. Next History presenting illness. Patient is a very pleasant 80-year-old lady who was admitted yesterday with a week long history of increasing cough, wheezing, chest congestion and sputum production. There is no history of any fever chills to suggest any viral illness patient denies any history of myalgias , arthralgias sore throat. Evaluation patient was diagnosed with COPD exacerbation and acute bronchitis. According to the patient's daughter who was present in the room, the patient has been having shortness of breath and coughing for the last couple weeks with only recent exacerbation to the point the patient had to be brought into the hospital. Patient's daughter the patient normally does not have any significant breathing issues. Next Past medical history: 1. COPD 2. Aortic sclerosis 3. Chronic atrial fibrillation 4. Compensated CHF. 5. History of right cataract surgery. 6. No known history of any coronary artery disease or any other major surgery. Next Medications; were reviewed Allergies; are none Social history; most of any smoking, alcohol or drug abuse. Next Family history; patient is a . Has 4 children. 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 Review of systems; denies any headache, seizures, visual changes, any sinus symptoms. Denies any dysphagia, sore throat. Any fever or chills. Denies any body aches, arthralgias or myalgias. Denies any chest pain. Complains of wheezing, cough without any sputum production. Denies any abdominal pain, nausea vomiting. Denies any melena, hematochezia. Denies any urinary symptoms. Denies any orthopnea. Does have stable chronic dyspnea on exertion. With recent exacerbation. Denies any skin changes next General examination; elderly lady, awake alert currently in no distress. 3. Respiratory: cough, pleuritic pain, shortness of breath, sputum, wheezing Cardiovascular: palpitations Gastrointestinal: decreased appetite Genitourinary: No bleeding, No dysuria Skin: No erythema Past Medical History Medical History: congestive heart failure, high cholesterol, hypertension Social History Alcohol Use: none Smoking Status: Never smoker Drug Use: none Exam/Review of Systems Vital Signs Vitals Vital Signs Date Time Temp Pulse Resp B/P Pulse Ox O2 Delivery O2 Flow Rate FiO2 08/08/16 09:51 130 08/08/16 08:42 20 97 Nasal Cannula 3.0 08/08/16 08:00 98.2 119/63 08/08/16 06:10 21 Intake and Output 08/07/16 08/07/16 08/08/16 15:00 23:00 07:00 Intake Total 600 ml 450 ml Output Total 150 ml Balance 600 ml 300 ml Exam HEENT examination; supple neck, no JVD. No lymphadenopathy. Patient has a right intraocular lens implant. No neck masses. Chest examination; diminished breath sounds bilaterally with bilateral expiratory wheezing. S1-S2 audible no murmurs irregular rhythm. Abdomen examination; soft, nontender. No organomegaly. Bowel sounds audible. Extremity examination; no peripheral edema. There is no clubbing. [employer] examination; cranial nerves are grossly intact there is no motor deficit. Results Result Diagram: 08/08/16 0635 08/08/16 0635 Results 24 hrs Laboratory Tests Test 08/08/16 06:35 Anion Gap 15 Basophils # 0.0 Basophils % 0.1 Blood Morphology Comment Blood Urea Nitrogen 23 H Calcium Level 8.3 L Carbon Dioxide Level 26 Chloride Level 104 Creatinine 0.82 Eosinophils # 0.0 Eosinophils % 0.0 Glucose Level 112 # Hematocrit 38.5 Hemoglobin 12.9 Lymphocytes # 0.7 L Lymphocytes % 5.8 L Magnesium Level 2.7 H Mean Corpuscular Hemoglobin 33.4 H Mean Corpuscular Hemoglobin Concent 33.5 Mean Corpuscular Volume 99.9 Mean Platelet Volume 8.8 Monocytes # 0.9 Monocytes % 6.7 Neutrophils # 11.2 H Neutrophils % 87.4 H Nucleated Red Blood Cells # 0.0 Nucleated Red Blood Cells % 0.0 Phosphorus Level 3.1 Platelet Count 160 Potassium Level 4.2 Red Blood Count 3.86 L Red Cell Distribution Width 16.1 H Sodium Level 141 White Blood Count 12.9 #H Medications Medications Current Medications Alendronate Sodium (Fosamax) 70 mg Tu@0730 PO ; Start 08/07/16 at 07:30 Aspirin (Halfprin) 81 mg DAILY PO Last administered on 08/08/16 09:27; Admin Dose 81 MG; Start 08/07/16 at 09:00 Ondansetron HCl (Zofran Inj) 4 mg Q6H PRN IV NAUSEA AND/OR VOMITING; Start 08/06 at 21:00 Docusate Sodium (Colace) 250 mg DAILY PRN PO CONSTIPATION; Start 08/06/16 at 21: 00 Senna 2 tab 2 tab QHS PRN PO CONSTIPATION; Start 08/06/16 at 21:00 Ceftriaxone Sodium 50 ml @ 100 mls/hr Q24H IVPB Last administered on 08/07/16 22:07; Admin Dose 100 MLS/HR; Start 08/07/16 at 21:00 Azithromycin (Zithromax 500mg/ NS (Pmx)) 250 ml @ 250 mls/hr Q24H IVPB Last administered on 08/07/16 22:55; Admin Dose 250 MLS/HR; Start 08/07/16 at 22:00 Diltiazem HCl (Cardizem) 30 mg Q6 PO Last administered on 08/08/16 06:18; Admin Dose 30 MG; Start 08/06/16 at 21:20 Famotidine (Pepcid) 10 mg BID PO Last administered on 08/08/16 09:00; Admin Dose 10 MG; Start 08/07/16 at 21:00 Apixaban (Eliquis) 5 mg BID PO Last administered on 08/08/16 09:27; Admin Dose 5 MG; Start 08/07/16 at 21:00 Furosemide (Lasix) 20 mg DAILY PO Last administered on 08/08/16 09:27; Admin Dose 20 MG; Start 08/08/16 at 09:00 Acetaminophen (Tylenol Tab) 650 mg Q6H PRN PO PAIN AND OR ELEVATED TEMP Last administered on 08/07/16 19:49; Admin Dose 650 MG; Start 08/07/16 at 20:00 Methylprednisolone Sodium Succinate (Solu-Medrol) 40 mg Q8 IV ; Start 08/08/16 at 14:00 Guaifenesin/ Dextromethorphan (Robitussin Dm Liquid Cup) 5 ml Q4H PRN PO Cough ; Start 08/08/16 at 10:30 RADHA JONES Aug 08, 2016 11:26
[2016-08-08] MEDS: GUAIFENESIN/DM 5ML CUP PO PRN ×2 (11:50→18:20)
[2016-08-08] MEDS: METHYLPREDNISOLONE 40 MG INJ IV SCH ×2 (14:48→20:12)
--- NOTE | 2016-08-08 14:51 | CONS ---
Date/Time of Note Date/Time of Note DATE: 08/08/16 TIME: 14:48 Assessment/Plan Assessment/Plan Additional Assessment/Plan Shortness of breath likely secondary to COPD exacerbation Mild acute decompensated diastolic congestive heart failure Preserved ejection fraction Atrial fibrillation with rapid ventricular rates, improved -Heart rate trend overall improved. Continue Cardizem and would switch to long- acting in the next one to 2 days. Continue maintenance diuretics. Extensive discussion with the patient and family at bedside regarding benefits and risks of anticoagulation. They understand the risks and requesting to continue anticoagulation. Would stop aspirin. Consultation Date/Type/Reason Admit Date/Time Aug 06, 2016 at 20:44 Initial Consult Date 08/08/16 Type of Consultation: cv 24 HR Interval Summary Free Text/Dictation Shortness of breath has improved, still with wet cough. Denies chest pain or palpitations Exam/Review of Systems Vital Signs Vitals Vital Signs Date Time Temp Pulse Resp B/P Pulse Ox O2 Delivery O2 Flow Rate FiO2 08/08/16 14:12 96 19 96 Nasal Cannula 3.0 08/08/16 08:00 98.2 119/63 08/08/16 06:10 21 Intake and Output 08/07/16 08/07/16 08/08/16 15:00 23:00 07:00 Intake Total 600 ml 450 ml Output Total 150 ml Balance 600 ml 300 ml Exam Sitting in chair, no apparent distress, family at bedside Constitutional: alert, obese, oriented Head: normocephalic Neck: supple Respiratory: other (course breath sounds bilaterally with end expiratory wheezing) Cardiovascular: irregular rhythm, other (S1 and S2 heard) Gastrointestinal: bowel sounds, non-tender, other (no guarding), soft Extremities: edema (trace) Results Result Diagram: 08/08/16 0635 08/08/16 0635 Results 24 hrs Laboratory Tests Test 08/08/16 06:35 Anion Gap 15 Basophils # 0.0 Basophils % 0.1 Blood Morphology Comment Blood Urea Nitrogen 23 H Calcium Level 8.3 L Carbon Dioxide Level 26 Chloride Level 104 Creatinine 0.82 Eosinophils # 0.0 Eosinophils % 0.0 Glucose Level 112 # Hematocrit 38.5 Hemoglobin 12.9 Lymphocytes # 0.7 L Lymphocytes % 5.8 L Magnesium Level 2.7 H Mean Corpuscular Hemoglobin 33.4 H Mean Corpuscular Hemoglobin Concent 33.5 Mean Corpuscular Volume 99.9 Mean Platelet Volume 8.8 Monocytes # 0.9 Monocytes % 6.7 Neutrophils # 11.2 H Neutrophils % 87.4 H Nucleated Red Blood Cells # 0.0 Nucleated Red Blood Cells % 0.0 Phosphorus Level 3.1 Platelet Count 160 Potassium Level 4.2 Red Blood Count 3.86 L Red Cell Distribution Width 16.1 H Sodium Level 141 White Blood Count 12.9 #H Medications Medications Current Medications Alendronate Sodium (Fosamax) 70 mg Tu@0730 PO ; Start 08/07/16 at 07:30 Aspirin (Halfprin) 81 mg DAILY PO Last administered on 08/08/16 09:27; Admin Dose 81 MG; Start 08/07/16 at 09:00 Ondansetron HCl (Zofran Inj) 4 mg Q6H PRN IV NAUSEA AND/OR VOMITING; Start 08/06 at 21:00 Docusate Sodium (Colace) 250 mg DAILY PRN PO CONSTIPATION; Start 08/06/16 at 21: 00 Senna 2 tab 2 tab QHS PRN PO CONSTIPATION; Start 08/06/16 at 21:00 Ceftriaxone Sodium 50 ml @ 100 mls/hr Q24H IVPB Last administered on 08/07/16 22:07; Admin Dose 100 MLS/HR; Start 08/07/16 at 21:00 Azithromycin (Zithromax 500mg/ NS (Pmx)) 250 ml @ 250 mls/hr Q24H IVPB Last administered on 08/07/16 22:55; Admin Dose 250 MLS/HR; Start 08/07/16 at 22:00 Diltiazem HCl (Cardizem) 30 mg Q6 PO Last administered on 08/08/16 11:51; Admin Dose 30 MG; Start 08/06/16 at 21:20 Famotidine (Pepcid) 10 mg BID PO Last administered on 08/08/16 09:00; Admin Dose 10 MG; Start 08/07/16 at 21:00 Apixaban (Eliquis) 5 mg BID PO Last administered on 08/08/16 09:27; Admin Dose 5 MG; Start 08/07/16 at 21:00 Furosemide (Lasix) 20 mg DAILY PO Last administered on 08/08/16 09:27; Admin Dose 20 MG; Start 08/08/16 at 09:00 Acetaminophen (Tylenol Tab) 650 mg Q6H PRN PO PAIN AND OR ELEVATED TEMP Last administered on 08/07/16 19:49; Admin Dose 650 MG; Start 08/07/16 at 20:00 Methylprednisolone Sodium Succinate (Solu-Medrol) 40 mg Q8 IV ; Start 08/08/16 at 14:00 Guaifenesin/ Dextromethorphan (Robitussin Dm Liquid Cup) 5 ml Q4H PRN PO Cough Last administered on 08/08/16 11:50; Admin Dose 5 ML; Start 08/08/16 at 10:30 Paul Mora DO Aug 08, 2016 14:51
[2016-08-08 15:08] LABS: ADD UMIC YES; URINE BILIRUBIN (Dip) NEGATIVE (NEGATIVE); URINE BLOOD (Dip) 2+ (NEGATIVE); URINE COLOR LT. YELLOW (YELLOW); URINE GLUCOSE (Dip) NEGATIVE (NEGATIVE); URINE KETONES (Dip) TRACE (NEGATIVE); URINE LEUKOCYTE ESTERASE (Dip) NEGATIVE (NEGATIVE); URINE NITRITE (Dip) NEGATIVE (NEGATIVE); URINE TOTAL PROTEIN (Dip) NEGATIVE (NEGATIVE); URINE UROBILINOGEN (Dip) 0.2 E.U./dL (0.1-1.0)
[2016-08-08 15:22] LABS: SQUAMOUS EPITHELIAL CELL,UR RARE
[2016-08-08] MEDS: CEFTRIAXONE 1 GM/50 ML (PMX) 50 ML IVPB SCH (20:13)
[2016-08-08] MEDS: AZITHROMYCIN 500MG/NS (PMX) 250 ML IVPB SCH (21:29)
[2016-08-08] MEDS: ACETAMINOPHEN 325 MG TAB PO PRN (23:16)
[2016-08-09] VITALS (13 sets, daily range): BP systolic 110–137; BP diastolic 46–82; PULSE 93–118; RESP 16–23
[2016-08-09] MEDS: ALBUTEROL/IPRATROPIUM (NEB) 3 ML AMP HHN SCH ×6 (01:55→20:34)
[2016-08-09] MEDS: METHYLPREDNISOLONE 40 MG INJ IV SCH ×3 (05:27→20:19)
[2016-08-09] MEDS: LEVOTHYROXINE 75 MCG TAB PO SCH (05:28)
[2016-08-09] MEDS: DILTIAZEM 30 MG TAB PO SCH ×3 (05:28→18:27)
[2016-08-09 07:00] LABS: MAGNESIUM 2.3 mg/dl (1.7-2.5)
[2016-08-09 07:01] LABS: HEMATOCRIT 38.3 % (37.0-47.0); HEMOGLOBIN 12.9 g/dl (12.0-16.0); LYMPHOCYTES # 0.3 10^3/ul (0.8-2.9); LYMPHOCYTES % 2.7 % (15.0-51.0); MEAN CORPUSCULAR HEMOGLOBIN 33.2 pg (29.0-33.0); MEAN CORPUSCULAR HGB CONC 33.6 g/dl (32.0-37.0); MEAN CORPUSCULAR VOLUME 98.7 fl (82.0-101.0); MEAN PLATELET VOLUME 8.9 fl (7.4-10.4); MONOCYTE # 0.4 10^3/ul (0.3-0.9); NEUTROPHIL # 12.2 10^3/ul (1.6-7.5); NEUTROPHILS % 94.3 % (39.0-77.0); PLATELET COUNT 159 10^3/UL (140-440); RED BLOOD COUNT 3.88 10^6/ul (4.20-5.40); RED CELL DISTRIBUTION WIDTH 15.9 % (11.5-14.5); UNCORRECTED WBC 12.9 10^3/ul (4.8-10.8); WHITE BLOOD COUNT 12.9 10^3/ul (4.8-10.8)
[2016-08-09 07:06] LABS: POTASSIUM 4.5 mmol/L (3.5-5.1)
[2016-08-09 07:09] LABS: CREATININE 0.97 mg/dl (0.44-1.00)
[2016-08-09 07:10] LABS: CALCIUM 8.2 mg/dl (8.4-10.2)
[2016-08-09 07:17] LABS: CONDITION 1; LH ANALYZER COMMENTS 1
[2016-08-09] MEDS: FAMOTIDINE 20 MG TAB PO SCH ×2 (09:58→20:19)
[2016-08-09] MEDS ORDERED: RACEPINEPHRINE 2.25%(NEB) 0.5 ML AMP HHN ONE (10:00)
--- NOTE | 2016-08-09 10:01 | PN ---
Date/Time of Note Date/Time of Note DATE: 08/09/16 TIME: 09:49 Assessment/Plan VTE Prophylaxis VTE Prophylaxis Intervention: other (Factor Xa inhibitors.) Lines/Catheters IV C[facility] Type (from [facility] Saline Lock Urinary Cath still in place: No Assessment/Plan Chief Complaint/Hosp Course 1. Acute respiratory failure. Hypoxic. Most probably secondary to underlying chronic obstructive pulmonary disease exacerbation with a component of diastolic heart failure. Continue inhaled bronchodilators. Continue supplemental oxygen. 2. COPD exacerbation. Continue inhaled bronchodilators. Continue tapering dose of steroids. Pulmonology on the case. 3. Atrial fibrillation. Rate controlled. Continue calcium channel blockers. The patient on therapeutic anticoagulation. 4. Pulmonary hypertension. PA pressure of 44 mmHg as per 2D echocardiogram done on 02/29/2016. Continue supplemental oxygen. 5. Essential hypertension. Continue antihypertensives. 6. Hypothyroidism. Continue Synthroid. 7. Osteoporosis. Continue bisphosphonates. 8. Fluid, electrolytes and nutrition. Continue low cholesterol diet. 9. DVT prophylaxis. On therapeutic anticoagulation with factor Xa inhibitors. 10. Gastrointestinal prophylaxis. Histamine-2 receptor blockers. PLAN: Continue telemetry monitoring. Continue current care. Case discussed with Dr. Kay. Problems: Subjective 24 Hr Interval Summary Free Text/Dictation Denies any chest pain. Complains of dyspnea. Exam/Review of Systems Vital Signs Vitals Vital Signs Date Time Temp Pulse Resp B/P Pulse Ox O2 Delivery O2 Flow Rate FiO2 08/09/16 09:44 2.0 08/09/16 09:40 88 22 96 Nasal Cannula 08/09/16 07:32 97.9 120/59 08/08/16 06:10 21 Intake and Output 08/08/16 08/08/16 08/09/16 15:00 23:00 07:00 Intake Total 1000 ml 240 ml Output Total 200 ml Balance 1000 ml 40 ml Exam GENERAL: This is an elderly, slightly overweight female lying in bed in mild respiratory distress. HEENT: Head normocephalic and atraumatic. Eyes: Anicteric sclerae. Conjunctivae clear. ENT: Nasal septum is midline. Oral mucosa is dry. NECK: Supple. JVD noticed. RESPIRATORY: Bilaterally diminished breath sounds. Use of accessory muscles of respiration. Coarse rales. Expiratory wheezing. CARDIAC: Irregularly irregular rhythm. Systolic murmur. ABDOMEN: Soft, nontender and nondistended. Bowel sounds positive in all 4 quadrants. GENITOURINARY: Deferred. EXTREMITIES: No cyanosis, no clubbing, no edema. Peripheral pulses palpable. NEUROLOGIC: The patient is awake, alert and oriented. The patient is primarily Emir[place] speaking. Results Result Diagram: 08/09/16 0618 08/09/16 0618 Results 24 hrs Laboratory Tests Test 08/09/16 06:18 Anion Gap 14 Basophils # 0.0 Basophils % 0.0 Blood Morphology Comment Blood Urea Nitrogen 27 H Calcium Level 8.2 L Carbon Dioxide Level 28 Chloride Level 104 Creatinine 0.97 Eosinophils # 0.0 Eosinophils % 0.0 Glucose Level 131 Hematocrit 38.3 Hemoglobin 12.9 Lymphocytes # 0.3 L Lymphocytes % 2.7 L Magnesium Level 2.3 Mean Corpuscular Hemoglobin 33.2 H Mean Corpuscular Hemoglobin Concent 33.6 Mean Corpuscular Volume 98.7 Mean Platelet Volume 8.9 Monocytes # 0.4 Monocytes % 3.0 Neutrophils # 12.2 H Neutrophils % 94.3 H Nucleated Red Blood Cells # 0.0 Nucleated Red Blood Cells % 0.0 Phosphorus Level 3.0 Platelet Count 159 Potassium Level 4.5 Red Blood Count 3.88 L Red Cell Distribution Width 15.9 H Sodium Level 141 White Blood Count 12.9 H Medications Medications Current Medications Alendronate Sodium (Fosamax) 70 mg Tu@0730 PO ; Start 08/07/16 at 07:30 Ondansetron HCl (Zofran Inj) 4 mg Q6H PRN IV NAUSEA AND/OR VOMITING; Start 08/06 at 21:00 Docusate Sodium (Colace) 250 mg DAILY PRN PO CONSTIPATION; Start 08/06/16 at 21: 00 Senna 2 tab 2 tab QHS PRN PO CONSTIPATION; Start 08/06/16 at 21:00 Ceftriaxone Sodium 50 ml @ 100 mls/hr Q24H IVPB Last administered on 08/08/16 20:13; Admin Dose 100 MLS/HR; Start 08/07/16 at 21:00 Azithromycin (Zithromax 500mg/ NS (Pmx)) 250 ml @ 250 mls/hr Q24H IVPB Last administered on 08/08/16 21:29; Admin Dose 250 MLS/HR; Start 08/07/16 at 22:00 Diltiazem HCl (Cardizem) 30 mg Q6 PO Last administered on 08/09/16 05:28; Admin Dose 30 MG; Start 08/06/16 at 21:20 Famotidine (Pepcid) 10 mg BID PO Last administered on 08/08/16 20:13; Admin Dose 10 MG; Start 08/07/16 at 21:00 Apixaban (Eliquis) 5 mg BID PO Last administered on 08/08/16 20:13; Admin Dose 5 MG; Start 08/07/16 at 21:00 Furosemide (Lasix) 20 mg DAILY PO Last administered on 08/08/16 09:27; Admin Dose 20 MG; Start 08/08/16 at 09:00 Acetaminophen (Tylenol Tab) 650 mg Q6H PRN PO PAIN AND OR ELEVATED TEMP Last administered on 08/08/16 23:16; Admin Dose 650 MG; Start 08/07/16 at 20:00 Methylprednisolone Sodium Succinate (Solu-Medrol) 40 mg Q8 IV Last administered on 08/09/16 05:27; Admin Dose 40 MG; Start 08/08/16 at 14:00 Guaifenesin/ Dextromethorphan (Robitussin Dm Liquid Cup) 5 ml Q4H PRN PO Cough Last administered on 08/08/16 18:20; Admin Dose 5 ML; Start 08/08/16 at 10:30 EZEQUIEL WOOD NP Aug 09, 2016 09:50
--- NOTE | 2016-08-09 10:11 | CONS ---
Date/Time of Note Date/Time of Note DATE: 08/09/16 TIME: 10:08 Assessment/Plan Assessment/Plan Additional Assessment/Plan Assessment and recommendations; 1. Patient admitted for COPD exacerbation and acute bronchitis. 2. Mild stridor. 3. Chronic atrial fibrillation. 4. Compensated CHF. Continue current treatment. Give 1 dose of racemic epinephrine. Consultation Date/Type/Reason Admit Date/Time Aug 06, 2016 at 20:44 Initial Consult Date 08/08/16 Type of Consultation: Pulmonary 24 HR Interval Summary Free Text/Dictation Patient condition is fairly stable however the patient is having what appears to be mild stridor. General examination; elderly lady, sitting in a chair by bedside currently in no distress. Exam/Review of Systems Vital Signs Vitals Vital Signs Date Time Temp Pulse Resp B/P Pulse Ox O2 Delivery O2 Flow Rate FiO2 08/09/16 09:44 2.0 08/09/16 09:40 88 22 96 Nasal Cannula 08/09/16 07:32 97.9 120/59 08/08/16 06:10 21 Intake and Output 08/08/16 08/08/16 08/09/16 15:00 23:00 07:00 Intake Total 1000 ml 240 ml Output Total 200 ml Balance 1000 ml 40 ml Exam HEENT examination; supple neck no JVD. No lymphadenopathy. Pharynx is clear. Mild stridor heard over the trachea. Chest examination; essentially clear. S1-S2 audible no murmurs. Irregular rhythm. Abdomen examination; soft, mildly protuberant. Nontender. No organomegaly. Bowel sounds audible. Extremity examination; no peripheral edema. 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 Results Result Diagram: 08/09/1618 08/09/16 0618 Results 24 hrs Laboratory Tests Test 08/09/16 06:18 Anion Gap 14 Basophils # 0.0 Basophils % 0.0 Blood Morphology Comment Blood Urea Nitrogen 27 H Calcium Level 8.2 L Carbon Dioxide Level 28 Chloride Level 104 Creatinine 0.97 Eosinophils # 0.0 Eosinophils % 0.0 Glucose Level 131 Hematocrit 38.3 Hemoglobin 12.9 Lymphocytes # 0.3 L Lymphocytes % 2.7 L Magnesium Level 2.3 Mean Corpuscular Hemoglobin 33.2 H Mean Corpuscular Hemoglobin Concent 33.6 Mean Corpuscular Volume 98.7 Mean Platelet Volume 8.9 Monocytes # 0.4 Monocytes % 3.0 Neutrophils # 12.2 H Neutrophils % 94.3 H Nucleated Red Blood Cells # 0.0 Nucleated Red Blood Cells % 0.0 Phosphorus Level 3.0 Platelet Count 159 Potassium Level 4.5 Red Blood Count 3.88 L Red Cell Distribution Width 15.9 H Sodium Level 141 White Blood Count 12.9 H Medications Medications Current Medications Alendronate Sodium (Fosamax) 70 mg Tu@0730 PO ; Start 08/07/16 at 07:30 Ondansetron HCl (Zofran Inj) 4 mg Q6H PRN IV NAUSEA AND/OR VOMITING; Start 08/06 at 21:00 Docusate Sodium (Colace) 250 mg DAILY PRN PO CONSTIPATION; Start 08/06/16 at 21: 00 Senna 2 tab 2 tab QHS PRN PO CONSTIPATION; Start 08/06/16 at 21:00 Ceftriaxone Sodium 50 ml @ 100 mls/hr Q24H IVPB Last administered on 08/08/16 20:13; Admin Dose 100 MLS/HR; Start 08/07/16 at 21:00 Azithromycin (Zithromax 500mg/ NS (Pmx)) 250 ml @ 250 mls/hr Q24H IVPB Last administered on 08/08/16 21:29; Admin Dose 250 MLS/HR; Start 08/07/16 at 22:00 Diltiazem HCl (Cardizem) 30 mg Q6 PO Last administered on 08/09/16 05:28; Admin Dose 30 MG; Start 08/06/16 at 21:20 Famotidine (Pepcid) 10 mg BID PO Last administered on 08/09/16 09:58; Admin Dose 10 MG; Start 08/07/16 at 21:00 Apixaban (Eliquis) 5 mg BID PO Last administered on 08/08/16 20:13; Admin Dose 5 MG; Start 08/07/16 at 21:00 Furosemide (Lasix) 20 mg DAILY PO Last administered on 08/08/16 09:27; Admin Dose 20 MG; Start 08/08/16 at 09:00 Acetaminophen (Tylenol Tab) 650 mg Q6H PRN PO PAIN AND OR ELEVATED TEMP Last administered on 08/08/16 23:16; Admin Dose 650 MG; Start 2/7/17 at 20:00 Methylprednisolone Sodium Succinate (Solu-Medrol) 40 mg Q8 IV Last administered on 08/09/16 05:27; Admin Dose 40 MG; Start 08/08/16 at 14:00 Guaifenesin/ Dextromethorphan (Robitussin Dm Liquid Cup) 5 ml Q4H PRN PO Cough Last administered on 08/08/16 18:20; Admin Dose 5 ML; Start 08/08/16 at 10:30 RADHA JONES Aug 09, 2016 10:11
--- NOTE | 2016-08-09 14:01 | CONS ---
Date/Time of Note Date/Time of Note DATE: 08/09/16 TIME: 13:59 Assessment/Plan Assessment/Plan Additional Assessment/Plan Shortness of breath likely secondary to COPD exacerbation Mild acute decompensated diastolic congestive heart failure Preserved ejection fraction Atrial fibrillation with rapid ventricular rates, improved -Patient still with shortness of breath and possible stridor as per our pulmonary colleagues. Would continue Cardizem. Continue maintenance diuretics. Patient tolerating anticoagulation at the current time. Consultation Date/Type/Reason Admit Date/Time Aug 06, 2016 at 20:44 Initial Consult Date 08/08/16 Type of Consultation: cv 24 HR Interval Summary Free Text/Dictation Denies chest pain or palpitations. Still complaining of shortness of breath and wheezing Exam/Review of Systems Vital Signs Vitals Vital Signs Date Time Temp Pulse Resp B/P Pulse Ox O2 Delivery O2 Flow Rate FiO2 08/09/16 13:40 92 21 08/09/16 13:38 103 24 08/09/16 11:18 97.9 136/77 08/09/16 09:44 2.0 08/09/16 09:40 Nasal Cannula Intake and Output 08/08/16 08/08/16 08/09/16 14:59 22:59 06:59 Intake Total 1000 ml 240 ml Output Total 200 ml Balance 1000 ml 40 ml Exam Sleeping but arousable, family at bedside, no apparent distress Constitutional: obese Head: normocephalic Neck: supple Respiratory: other (Coarse breath sounds with scattered rhonchi), wheezing Cardiovascular: irregular rhythm, other (S1-S2 heard) Gastrointestinal: bowel sounds, non-tender, other (No guarding), soft Extremities: edema Results Result Diagram: 08/09/1618 08/09/16 0618 Results 24 hrs Laboratory Tests Test 08/09/16 06:18 Anion Gap 14 Basophils # 0.0 Basophils % 0.0 Blood Morphology Comment Blood Urea Nitrogen 27 H Calcium Level 8.2 L Carbon Dioxide Level 28 Chloride Level 104 Creatinine 0.97 Eosinophils # 0.0 Eosinophils % 0.0 Glucose Level 131 Hematocrit 38.3 Hemoglobin 12.9 Lymphocytes # 0.3 L Lymphocytes % 2.7 L Magnesium Level 2.3 Mean Corpuscular Hemoglobin 33.2 H Mean Corpuscular Hemoglobin Concent 33.6 Mean Corpuscular Volume 98.7 Mean Platelet Volume 8.9 Monocytes # 0.4 Monocytes % 3.0 Neutrophils # 12.2 H Neutrophils % 94.3 H Nucleated Red Blood Cells # 0.0 Nucleated Red Blood Cells % 0.0 Phosphorus Level 3.0 Platelet Count 159 Potassium Level 4.5 Red Blood Count 3.88 L Red Cell Distribution Width 15.9 H Sodium Level 141 White Blood Count 12.9 H Medications Medications Current Medications Alendronate Sodium (Fosamax) 70 mg Tu@0730 PO ; Start 08/07/16 at 07:30 Ondansetron HCl (Zofran Inj) 4 mg Q6H PRN IV NAUSEA AND/OR VOMITING; Start 08/06 at 21:00 Docusate Sodium (Colace) 250 mg DAILY PRN PO CONSTIPATION; Start 08/06/16 at 21: 00 Senna 2 tab 2 tab QHS PRN PO CONSTIPATION; Start 08/06/16 at 21:00 Ceftriaxone Sodium 50 ml @ 100 mls/hr Q24H IVPB Last administered on 08/08/16 20:13; Admin Dose 100 MLS/HR; Start 08/07/16 at 21:00 Azithromycin (Zithromax 500mg/ NS (Pmx)) 250 ml @ 250 mls/hr Q24H IVPB Last administered on 08/08/16 21:29; Admin Dose 250 MLS/HR; Start 08/07/16 at 22:00 Diltiazem HCl (Cardizem) 30 mg Q6 PO Last administered on 08/09/16 12:46; Admin Dose 30 MG; Start 08/06/16 at 21:20 Famotidine (Pepcid) 10 mg BID PO Last administered on 08/09/16 09:58; Admin Dose 10 MG; Start 08/07/16 at 21:00 Apixaban (Eliquis) 5 mg BID PO Last administered on 08/08/16 20:13; Admin Dose 5 MG; Start 08/07/16 at 21:00 Furosemide (Lasix) 20 mg DAILY PO Last administered on 08/08/16 09:27; Admin Dose 20 MG; Start 08/08/16 at 09:00 Acetaminophen (Tylenol Tab) 650 mg Q6H PRN PO PAIN AND OR ELEVATED TEMP Last administered on 08/08/16 23:16; Admin Dose 650 MG; Start 08/07/16 at 20:00 Methylprednisolone Sodium Succinate (Solu-Medrol) 40 mg Q8 IV Last administered on 08/09/16 05:27; Admin Dose 40 MG; Start 08/08/16 at 14:00 Guaifenesin/ Dextromethorphan (Robitussin Dm Liquid Cup) 5 ml Q4H PRN PO Cough Last administered on 08/08/16 18:20; Admin Dose 5 ML; Start 08/08/16 at 10:30 Paul Mora DO Aug 09, 2016 14:01
[2016-08-09] MEDS: APIXABAN 5 MG TABLET PO SCH (20:19)
[2016-08-09] MEDS: CEFTRIAXONE 1 GM/50 ML (PMX) 50 ML IVPB SCH (20:19)
[2016-08-09] MEDS: AZITHROMYCIN 500MG/NS (PMX) 250 ML IVPB SCH (22:19)
[2016-08-09] MEDS: ACETAMINOPHEN 325 MG TAB PO PRN (22:26)
[2016-08-10] VITALS (12 sets, daily range): BP systolic 126–156; BP diastolic 57–80; PULSE 83–106; RESP 20
[2016-08-10] MEDS: DILTIAZEM 30 MG TAB PO SCH ×2 (00:25→05:18)
[2016-08-10] MEDS: ALBUTEROL/IPRATROPIUM (NEB) 3 ML AMP HHN SCH ×7 (01:32→23:43)
[2016-08-10] MEDS: METHYLPREDNISOLONE 40 MG INJ IV SCH (05:18)
[2016-08-10] MEDS: LEVOTHYROXINE 75 MCG TAB PO SCH (05:18)
[2016-08-10 06:18] LABS: ADD SCAN DIFF NO
[2016-08-10 06:29] LABS: ABNORMAL IP MESSAGE 1; BASOPHILS % 0.1 % (0.0-2.0); HEMATOCRIT 38.1 % (37.0-47.0); HEMOGLOBIN 12.4 g/dl (12.0-16.0); LYMPHOCYTES # 0.4 10^3/ul (0.8-2.9); LYMPHOCYTES % 2.9 % (15.0-51.0); MEAN CORPUSCULAR HEMOGLOBIN 32.1 pg (29.0-33.0); MEAN CORPUSCULAR HGB CONC 32.5 g/dl (32.0-37.0); MEAN CORPUSCULAR VOLUME 98.7 fl (82.0-101.0); MEAN PLATELET VOLUME 10.5 fl (7.4-10.4); MONOCYTE # 0.5 10^3/ul (0.3-0.9); NEUTROPHIL # 11.2 10^3/ul (1.6-7.5); NEUTROPHILS % 91.9 % (39.0-77.0); NUCLEATED RED BLOOD CELLS% 0.2 /100WBC (0.0-0.0); PLATELET COUNT 170 10^3/UL (140-415); RED BLOOD COUNT 3.86 10^6/ul (4.20-5.40); RED CELL DISTRIBUTION WIDTH 15.1 % (11.5-14.5); WHITE BLOOD COUNT 12.2 10^3/ul (4.8-10.8)
[2016-08-10 06:53] LABS: POTASSIUM 4.5 mmol/L (3.5-5.1)
[2016-08-10 06:56] LABS: CREATININE 0.99 mg/dl (0.44-1.00)
[2016-08-10 07:08] LABS: MAGNESIUM 2.2 mg/dl (1.7-2.5); PHOSPHORUS 2.9 mg/dl (2.5-4.9)
--- NOTE | 2016-08-10 08:51 | PN ---
Date/Time of Note Date/Time of Note DATE: 08/10/16 TIME: 08:50 Assessment/Plan VTE Prophylaxis VTE Prophylaxis Intervention: other (Factor Xa inhibitors) Lines/Catheters IV [facility] Type [facility]from [facility] Saline Lock Urinary Cath still in place: No Assessment/Plan Chief Complaint/Hosp Course 1. Acute respiratory failure. Hypoxic. Most probably secondary to underlying chronic obstructive pulmonary disease exacerbation with a component of diastolic heart failure. Continue inhaled bronchodilators. Continue supplemental oxygen. 2. COPD exacerbation. Continue inhaled bronchodilators. Continue tapering dose of steroids. Pulmonology on the case. 3. Atrial fibrillation. Rate controlled. Continue calcium channel blockers. The patient on therapeutic anticoagulation. 4. Pulmonary hypertension. PA pressure of 44 mmHg as per 2D echocardiogram done on 02/29/2016. Continue supplemental oxygen. 5. Essential hypertension. Continue antihypertensives. 6. Hypothyroidism. Continue Synthroid. 7. Osteoporosis. Continue bisphosphonates. 8. Fluid, electrolytes and nutrition. Continue low cholesterol diet. 9. DVT prophylaxis. On therapeutic anticoagulation with factor Xa inhibitors. 10. Gastrointestinal prophylaxis. Histamine-2 receptor blockers. PLAN: Continue telemetry monitoring. Continue current care. Case discussed with Dr. Kay. Problems: Subjective 24 Hr Interval Summary Free Text/Dictation Continues to have dyspnea. Exam/Review of Systems Vital Signs Vitals Vital Signs Date Time Temp Pulse Resp B/P Pulse Ox O2 Delivery O2 Flow Rate FiO2 08/10/16 08:27 102 26 93 Nasal Cannula 2.0 28 08/10/16 08:01 98.4 144/75 Intake and Output 08/09/16 08/09/16 08/10/16 15:00 23:00 07:00 Intake Total 500 ml Balance 500 ml Exam GENERAL: This is an elderly, slightly overweight female lying in bed in mild respiratory distress. HEENT: Head normocephalic and atraumatic. Eyes: Anicteric sclerae. Conjunctivae clear. ENT: Nasal septum is midline. Oral mucosa is dry. NECK: Supple. JVD noticed. RESPIRATORY: Bilaterally diminished breath sounds. Use of accessory muscles of respiration. Coarse rales. Expiratory wheezing. CARDIAC: Irregularly irregular rhythm. Systolic murmur. ABDOMEN: Soft, nontender and nondistended. Bowel sounds positive in all 4 quadrants. GENITOURINARY: Deferred. EXTREMITIES: No cyanosis, no clubbing, no edema. Peripheral pulses palpable. NEUROLOGIC: The patient is awake, alert and oriented. The patient is primarily Ugandan speaking. Results Result Diagram: 08/10/16 0545 08/10/16 0545 Results 24 hrs Laboratory Tests Test 08/10/16 05:45 Anion Gap 15 Basophils # 0.0 Basophils % 0.1 Blood Urea Nitrogen 28 H Calcium Level 8.0 L Carbon Dioxide Level 27 Chloride Level 104 Creatinine 0.99 Eosinophils # 0.0 Eosinophils % 0.0 Glucose Level 131 Hematocrit 38.1 Hemoglobin 12.4 Lymphocytes # 0.4 L Lymphocytes % 2.9 L Magnesium Level 2.2 Mean Corpuscular Hemoglobin 32.1 Mean Corpuscular Hemoglobin Concent 32.5 Mean Corpuscular Volume 98.7 Mean Platelet Volume 10.5 H Monocytes # 0.5 Monocytes % 4.0 Neutrophils # 11.2 H Neutrophils % 91.9 H Nucleated Red Blood Cells # 0.0 Nucleated Red Blood Cells % 0.2 H Phosphorus Level 2.9 Platelet Count 170 Potassium Level 4.5 Red Blood Count 3.86 L Red Cell Distribution Width 15.1 H Sodium Level 141 White Blood Count 12.2 H Medications Medications Current Medications Alendronate Sodium (Fosamax) 70 mg Tu@0730 PO ; Start 08/07/16 at 07:30 Ondansetron HCl (Zofran Inj) 4 mg Q6H PRN IV NAUSEA AND/OR VOMITING; Start 08/06 at 21:00 Docusate Sodium (Colace) 250 mg DAILY PRN PO CONSTIPATION; Start 08/06/16 at 21: 00 Senna 2 tab 2 tab QHS PRN PO CONSTIPATION; Start 08/06/16 at 21:00 Ceftriaxone Sodium 50 ml @ 100 mls/hr Q24H IVPB Last administered on 08/09/16 20:19; Admin Dose 100 MLS/HR; Start 08/07/16 at 21:00 Azithromycin (Zithromax 500mg/ NS (Pmx)) 250 ml @ 250 mls/hr Q24H IVPB Last administered on 08/09/16 22:19; Admin Dose 250 MLS/HR; Start 08/07/16 at 22:00 Diltiazem HCl (Cardizem) 30 mg Q6 PO Last administered on 08/10/16 05:18; Admin Dose 30 MG; Start 08/06/16 at 21:20 Famotidine (Pepcid) 10 mg BID PO Last administered on 08/09/16 20:19; Admin Dose 10 MG; Start 08/07/16 at 21:00 Apixaban (Eliquis) 5 mg BID PO Last administered on 08/09/16 20:19; Admin Dose 5 MG; Start 08/07/16 at 21:00 Furosemide (Lasix) 20 mg DAILY PO Last administered on 08/08/16 09:27; Admin Dose 20 MG; Start 08/08/16 at 09:00 Acetaminophen (Tylenol Tab) 650 mg Q6H PRN PO PAIN AND OR ELEVATED TEMP Last administered on 08/09/16 22:26; Admin Dose 650 MG; Start 08/07/16 at 20:00 Methylprednisolone Sodium Succinate (Solu-Medrol) 40 mg Q8 IV Last administered on 08/10/16 05:18; Admin Dose 40 MG; Start 08/08/16 at 14:00 Guaifenesin/ Dextromethorphan (Robitussin Dm Liquid Cup) 5 ml Q4H PRN PO Cough Last administered on 08/08/16 18:20; Admin Dose 5 ML; Start 08/08/16 at 10:30 EZEQUIEL WOOD NP Aug 10, 2016 08:51
[2016-08-10] MEDS: APIXABAN 5 MG TABLET PO SCH ×2 (09:32→22:31)
[2016-08-10] MEDS: FUROSEMIDE 20 MG TAB PO SCH (09:33)
[2016-08-10] MEDS: FAMOTIDINE 20 MG TAB PO SCH ×2 (09:33→22:32)
--- NOTE | 2016-08-10 11:28 | CONS ---
Date/Time of Note Date/Time of Note DATE: 08/10/16 TIME: 11:25 Assessment/Plan Assessment/Plan Additional Assessment/Plan Assessment and recommendations; 1. Patient admitted with COPD exacerbation with significant clinical improvement. Patient observed mild stridor yesterday with interval resolution. 3. Chronic atrial fibrillation. 4. Compensated CHF. Continue current treatment. Discontinue Solu-Medrol. Start the patient on prednisone 40 mg daily. With further tapering it on as dictated by her clinical status. Consultation Date/Type/Reason Admit Date/Time Aug 06, 2016 at 20:44 Initial Consult Date 08/08/16 Type of Consultation: Pulmonary 24 HR Interval Summary Free Text/Dictation Patient condition is stable. There is complete resolution of stridor. Shortness of breath is markedly improved. Patient denies any coughing. Complains of very mild wheezing. General examination; elderly lady, currently in no distress awake and alert. Exam/Review of Systems Vital Signs Vitals Vital Signs Date Time Temp Pulse Resp B/P Pulse Ox O2 Delivery O2 Flow Rate FiO2 08/10/16 08:27 102 26 93 Nasal Cannula 2.0 28 08/10/16 08:01 98.4 144/75 Intake and Output 08/09/16 08/09/16 08/10/16 15:00 23:00 07:00 Intake Total 500 ml Balance 500 ml Exam HEENT examination; supple neck, no JVD. No lymphadenopathy. Patient has a right intraocular lens implant. And a left cataract. Pharynx is clear. No thyromegaly. Chest examination; very minimal expiratory wheezing. No stridor. S1-S2 audible , no murmurs. Irregular rhythm. Abdomen examination; soft, no organomegaly. Nondistended. Sounds audible. Extremity examination; no peripheral edema. 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 Results Result Diagram: 08/10/1645 08/10/16 0545 Results 24 hrs Laboratory Tests Test 08/10/16 05:45 Anion Gap 15 Basophils # 0.0 Basophils % 0.1 Blood Urea Nitrogen 28 H Calcium Level 8.0 L Carbon Dioxide Level 27 Chloride Level 104 Creatinine 0.99 Eosinophils # 0.0 Eosinophils % 0.0 Glucose Level 131 Hematocrit 38.1 Hemoglobin 12.4 Lymphocytes # 0.4 L Lymphocytes % 2.9 L Magnesium Level 2.2 Mean Corpuscular Hemoglobin 32.1 Mean Corpuscular Hemoglobin Concent 32.5 Mean Corpuscular Volume 98.7 Mean Platelet Volume 10.5 H Monocytes # 0.5 Monocytes % 4.0 Neutrophils # 11.2 H Neutrophils % 91.9 H Nucleated Red Blood Cells # 0.0 Nucleated Red Blood Cells % 0.2 H Phosphorus Level 2.9 Platelet Count 170 Potassium Level 4.5 Red Blood Count 3.86 L Red Cell Distribution Width 15.1 H Sodium Level 141 White Blood Count 12.2 H Medications Medications Current Medications Alendronate Sodium (Fosamax) 70 mg Tu@0730 PO ; Start 08/07/16 at 07:30 Ondansetron HCl (Zofran Inj) 4 mg Q6H PRN IV NAUSEA AND/OR VOMITING; Start 08/06 at 21:00 Docusate Sodium (Colace) 250 mg DAILY PRN PO CONSTIPATION; Start 08/06/16 at 21: 00 Senna 2 tab 2 tab QHS PRN PO CONSTIPATION; Start 08/06/16 at 21:00 Ceftriaxone Sodium 50 ml @ 100 mls/hr Q24H IVPB Last administered on 08/09/16 20:19; Admin Dose 100 MLS/HR; Start 08/07/16 at 21:00 Azithromycin (Zithromax 500mg/ NS (Pmx)) 250 ml @ 250 mls/hr Q24H IVPB Last administered on 08/09/16 22:19; Admin Dose 250 MLS/HR; Start 08/07/16 at 22:00 Diltiazem HCl (Cardizem) 30 mg Q6 PO Last administered on 08/10/16 05:18; Admin Dose 30 MG; Start 08/06/16 at 21:20 Famotidine (Pepcid) 10 mg BID PO Last administered on 08/10/16 09:33; Admin Dose 10 MG; Start 08/07/16 at 21:00 Apixaban (Eliquis) 5 mg BID PO Last administered on 08/10/16 09:32; Admin Dose 5 MG; Start 08/07/16 at 21:00 Furosemide (Lasix) 20 mg DAILY PO Last administered on 08/10/16 09:33; Admin Dose 20 MG; Start 08/08/16 at 09:00 Acetaminophen (Tylenol Tab) 650 mg Q6H PRN PO PAIN AND OR ELEVATED TEMP Last administered on 08/09/16 22:26; Admin Dose 650 MG; Start 08/07/16 at 20:00 Methylprednisolone Sodium Succinate (Solu-Medrol) 40 mg Q8 IV Last administered on 08/10/16 05:18; Admin Dose 40 MG; Start 08/08/16 at 14:00 Guaifenesin/ Dextromethorphan (Robitussin Dm Liquid Cup) 5 ml Q4H PRN PO Cough Last administered on 08/08/16 18:20; Admin Dose 5 ML; Start 08/08/16 at 10:30 RADHA JONES Aug 10, 2016 11:28
--- NOTE | 2016-08-10 13:51 | CONS ---
Date/Time of Note Date/Time of Note DATE: 08/10/16 TIME: 13:48 Assessment/Plan Assessment/Plan Additional Assessment/Plan Shortness of breath likely secondary to COPD exacerbation Mild acute decompensated diastolic congestive heart failure Preserved ejection fraction Atrial fibrillation with rapid ventricular rates, improve -Patient still with episodes of palpitations usually when wheezing and shortness of breath worsens. Would increase dose of Cardizem given blood pressure has improved, tolerating anticoagulation. Continue maintenance diuretics. Consultation Date/Type/Reason Admit Date/Time Aug 06, 2016 at 20:44 Initial Consult Date 08/08/16 Type of Consultation: cv 24 HR Interval Summary Free Text/Dictation Shortness of breath is improving, still wheezing. Has palpitations when she gets short of breath Exam/Review of Systems Vital Signs Vitals Vital Signs Date Time Temp Pulse Resp B/P Pulse Ox O2 Delivery O2 Flow Rate FiO2 08/10/16 12:42 92 08/10/16 12:30 2.0 28 08/10/16 12:28 28 92 Nasal Cannula 08/10/16 11:46 98.0 139/69 Intake and Output 08/09/16 08/09/16 08/10/16 15:00 23:00 07:00 Intake Total 500 ml Balance 500 ml Exam Sitting in chair Constitutional: alert, obese, oriented Head: normocephalic Neck: supple Respiratory: other (Coarse breath sounds bilaterally with scattered rhonchi and end expiratory wheezing) Cardiovascular: irregular rhythm, other (S1-S2 heard) Gastrointestinal: bowel sounds, non-tender, other (No guarding), soft Extremities: edema (Trace) Results Result Diagram: 08/10/16 0545 08/10/16 0545 Results 24 hrs Laboratory Tests Test 08/10/16 05:45 Anion Gap 15 Basophils # 0.0 Basophils % 0.1 Blood Urea Nitrogen 28 H Calcium Level 8.0 L Carbon Dioxide Level 27 Chloride Level 104 Creatinine 0.99 Eosinophils # 0.0 Eosinophils % 0.0 Glucose Level 131 Hematocrit 38.1 Hemoglobin 12.4 Lymphocytes # 0.4 L Lymphocytes % 2.9 L Magnesium Level 2.2 Mean Corpuscular Hemoglobin 32.1 Mean Corpuscular Hemoglobin Concent 32.5 Mean Corpuscular Volume 98.7 Mean Platelet Volume 10.5 H Monocytes # 0.5 Monocytes % 4.0 Neutrophils # 11.2 H Neutrophils % 91.9 H Nucleated Red Blood Cells # 0.0 Nucleated Red Blood Cells % 0.2 H Phosphorus Level 2.9 Platelet Count 170 Potassium Level 4.5 Red Blood Count 3.86 L Red Cell Distribution Width 15.1 H Sodium Level 141 White Blood Count 12.2 H Medications Medications Current Medications Alendronate Sodium (Fosamax) 70 mg Tu@0730 PO ; Start 08/07/16 at 07:30 Ondansetron HCl (Zofran Inj) 4 mg Q6H PRN IV NAUSEA AND/OR VOMITING; Start 08/06 at 21:00 Docusate Sodium (Colace) 250 mg DAILY PRN PO CONSTIPATION; Start 08/06/16 at 21: 00 Senna 2 tab 2 tab QHS PRN PO CONSTIPATION; Start 08/06/16 at 21:00 Ceftriaxone Sodium 50 ml @ 100 mls/hr Q24H IVPB Last administered on 08/09/16 20:19; Admin Dose 100 MLS/HR; Start 08/07/16 at 21:00 Azithromycin (Zithromax 500mg/ NS (Pmx)) 250 ml @ 250 mls/hr Q24H IVPB Last administered on 08/09/16 22:19; Admin Dose 250 MLS/HR; Start 08/07/16 at 22:00 Diltiazem HCl (Cardizem) 30 mg Q6 PO Last administered on 08/10/16 05:18; Admin Dose 30 MG; Start 08/06/16 at 21:20 Famotidine (Pepcid) 10 mg BID PO Last administered on 08/10/16 09:33; Admin Dose 10 MG; Start 08/07/16 at 21:00 Apixaban (Eliquis) 5 mg BID PO Last administered on 08/10/16 09:32; Admin Dose 5 MG; Start 08/07/16 at 21:00 Furosemide (Lasix) 20 mg DAILY PO Last administered on 08/10/16 09:33; Admin Dose 20 MG; Start 08/08/16 at 09:00 Acetaminophen (Tylenol Tab) 650 mg Q6H PRN PO PAIN AND OR ELEVATED TEMP Last administered on 08/09/16 22:26; Admin Dose 650 MG; Start 08/07/16 at 20:00 Guaifenesin/ Dextromethorphan (Robitussin Dm Liquid Cup) 5 ml Q4H PRN PO Cough Last administered on 08/08/16t 18:20; Admin Dose 5 ML; Start 08/08/16 at 10:30 Prednisone (Prednisone) 40 mg DAILY PO ; Start 08/11/16 at 09:00 Paul Mora DO Aug 10, 2016 13:51
[2016-08-10] MEDS: DILTIAZEM 60 MG TAB PO SCH ×2 (17:18→23:33)
[2016-08-10] MEDS: ACETAMINOPHEN 325 MG TAB PO PRN (17:53)
[2016-08-10] MEDS ORDERED: FUROSEMIDE 20 MG TAB PO ONE (18:00)
[2016-08-10] MEDS: CEFTRIAXONE 1 GM/50 ML (PMX) 50 ML IVPB SCH (22:30)
[2016-08-10] MEDS: AZITHROMYCIN 500MG/NS (PMX) 250 ML IVPB SCH (22:32)
[2016-08-11] VITALS (13 sets, daily range): BP systolic 121–139; BP diastolic 60–74; PULSE 70–83; RESP 15–21
[2016-08-11] MEDS: ALBUTEROL/IPRATROPIUM (NEB) 3 ML AMP HHN SCH ×5 (05:30→20:11)
[2016-08-11] MEDS: LEVOTHYROXINE 75 MCG TAB PO SCH (05:55)
[2016-08-11] MEDS: DILTIAZEM 60 MG TAB PO SCH ×3 (05:55→22:17)
[2016-08-11] MEDS: ACETAMINOPHEN 325 MG TAB PO PRN (06:09)
[2016-08-11 06:10] LABS: ADD SCAN DIFF NO
[2016-08-11 06:28] LABS: POTASSIUM 4.6 mmol/L (3.5-5.1)
[2016-08-11 06:31] LABS: CREATININE 0.92 mg/dl (0.44-1.00)
[2016-08-11 06:32] LABS: MAGNESIUM 2.3 mg/dl (1.7-2.5); PHOSPHORUS 3.5 mg/dl (2.5-4.9)
[2016-08-11 06:32] LABS: CALCIUM 7.8 mg/dl (8.4-10.2)
[2016-08-11 06:36] LABS: ABNORMAL IP MESSAGE 1; BASOPHILS % 0.1 % (0.0-2.0); HEMATOCRIT 37.7 % (37.0-47.0); HEMOGLOBIN 12.2 g/dl (12.0-16.0); LYMPHOCYTES # 0.6 10^3/ul (0.8-2.9); LYMPHOCYTES % 4.7 % (15.0-51.0); MEAN CORPUSCULAR HEMOGLOBIN 32.1 pg (29.0-33.0); MEAN CORPUSCULAR HGB CONC 32.4 g/dl (32.0-37.0); MEAN CORPUSCULAR VOLUME 99.2 fl (82.0-101.0); MEAN PLATELET VOLUME 10.6 fl (7.4-10.4); MONOCYTE # 0.6 10^3/ul (0.3-0.9); MONOCYTES % 5.4 % (0.0-11.0); NEUTROPHIL # 10.2 10^3/ul (1.6-7.5); NEUTROPHILS % 87.7 % (39.0-77.0); NUCLEATED RED BLOOD CELLS% 0.2 /100WBC (0.0-0.0); PLATELET COUNT 167 10^3/UL (140-415); RED CELL DISTRIBUTION WIDTH 15.1 % (11.5-14.5); WHITE BLOOD COUNT 11.7 10^3/ul (4.8-10.8)
[2016-08-11] MEDS: predniSONE 20 MG TAB PO SCH (09:01)
[2016-08-11] MEDS: APIXABAN 5 MG TABLET PO SCH ×2 (09:02→21:02)
[2016-08-11] MEDS: FAMOTIDINE 20 MG TAB PO SCH ×2 (09:02→21:02)
[2016-08-11] MEDS: FUROSEMIDE 20 MG TAB PO SCH (09:02)
--- NOTE | 2016-08-11 11:18 | PN ---
Date/Time of Note Date/Time of Note DATE: 08/11/16 TIME: :17 Assessment/Plan VTE Prophylaxis VTE Prophylaxis Intervention: SCD's Lines/Catheters IV C[facility]ter Type (from [facility] Urinary Cath still in place: No Assessment/Plan Assessment/Plan Shortness of breath likely secondary to COPD exacerbation Mild acute decompensated diastolic congestive heart failure Preserved ejection fraction Atrial fibrillation with rapid ventricular rates, improve -Patient still with episodes of palpitations usually when wheezing and shortness of breath worsens. continue Cardizem given blood pressure has improved, tolerating anticoagulation. Continue maintenance diuretics. Subjective 24 Hr Interval Summary Free Text/Dictation the patient with no cahnge Exam/Review of Systems Vital Signs Vitals Vital Signs Date Time Temp Pulse Resp B/P Pulse Ox O2 Delivery O2 Flow Rate FiO2 08/11/16 09:35 88 20 97 Nasal Cannula 3.0 08/11/16 07:16 97.4 132/66 08/11/16 05:31 32 Intake and Output 08/10/16 08/10/16 08/11/16 15:00 23:00 07:00 Intake Total 240 ml Output Total 120 ml Balance 120 ml Results Result Diagram: 08/11/16 0534 08/11/16 0535 Results 24 hrs Laboratory Tests Test 08/11/16 05:34 08/11/16 05:35 Basophils # 0.0 Basophils % 0.1 Eosinophils # 0.0 Eosinophils % 0.0 Hematocrit 37.7 Hemoglobin 12.2 Lymphocytes # 0.6 L Lymphocytes % 4.7 L Magnesium Level 2.3 Mean Corpuscular Hemoglobin 32.1 Mean Corpuscular Hemoglobin Concent 32.4 Mean Corpuscular Volume 99.2 Mean Platelet Volume 10.6 H Monocytes # 0.6 Monocytes % 5.4 Neutrophils # 10.2 H Neutrophils % 87.7 H Nucleated Red Blood Cells # 0.0 Nucleated Red Blood Cells % 0.2 H Phosphorus Level 3.5 Platelet Count 167 Red Blood Count 3.80 L Red Cell Distribution Width 15.1 H White Blood Count 11.7 H Anion Gap 13 Blood Urea Nitrogen 25 H Calcium Level 7.8 L Carbon Dioxide Level 30 Chloride Level 105 Creatinine 0.92 Glucose Level 115 Potassium Level 4.6 Sodium Level 143 Medications Medications Current Medications Alendronate Sodium (Fosamax) 70 mg Tu@0730 PO ; Start 2/7/17 at 07:30 Ondansetron HCl (Zofran Inj) 4 mg Q6H PRN IV NAUSEA AND/OR VOMITING; Start 08/06 at 21:00 Docusate Sodium (Colace) 250 mg DAILY PRN PO CONSTIPATION; Start 08/06/16 at 21: 00 Senna 2 tab 2 tab QHS PRN PO CONSTIPATION; Start 08/06/16 at 21:00 Ceftriaxone Sodium 50 ml @ 100 mls/hr Q24H IVPB Last administered on 22:30; Admin Dose 100 MLS/HR; Start 08/07/16 at 21:00 Azithromycin (Zithromax 500mg/ NS (Pmx)) 250 ml @ 250 mls/hr Q24H IVPB Last administered on 08/10/16 22:32; Admin Dose 250 MLS/HR; Start 08/07/16 at 22:00 Famotidine (Pepcid) 10 mg BID PO Last administered on 08/11/16 09:02; Admin Dose 10 MG; Start 08/07/16 at 21:00 Apixaban (Eliquis) 5 mg BID PO Last administered on 08/11/16 09:02; Admin Dose 5 MG; Start 08/07/16 at 21:00 Furosemide (Lasix) 20 mg DAILY PO Last administered on 08/11/16 09:02; Admin Dose 20 MG; Start 08/08/16 at 09:00 Acetaminophen (Tylenol Tab) 650 mg Q6H PRN PO PAIN AND OR ELEVATED TEMP Last administered on 08/11/16 06:09; Admin Dose 650 MG; Start 08/07/16 at 20:00 Guaifenesin/ Dextromethorphan (Robitussin Dm Liquid Cup) 5 ml Q4H PRN PO Cough Last administered on 08/08/16 18:20; Admin Dose 5 ML; Start 08/08/16 at 10:30 Prednisone (Prednisone) 40 mg DAILY PO Last administered on 08/11/16 09:01; Admin Dose 40 MG; Start 08/11/16 at 09:00 Diltiazem HCl (Cardizem) 60 mg Q8 PO Last administered on 08/11/16 05:55; Admin Dose 60 MG; Start 08/10/16 at 17:00 ANDREI MCKNIGHT MD Aug 11, 2016 11:18
--- NOTE | 2016-08-11 11:32 | PN ---
Date/Time of Note Date/Time of Note DATE: 08/11/16 TIME: 11:31 Assessment/Plan VTE Prophylaxis VTE Prophylaxis Intervention: other (Factor Xa inhibitors.) Lines/Catheters IV Catheter Type (from [facility] Urinary Cath still in place: No Assessment/Plan Chief Complaint/Hosp Course 1. Acute respiratory failure. Hypoxic. Most probably secondary to underlying chronic obstructive pulmonary disease exacerbation with a component of diastolic heart failure. Continue inhaled bronchodilators. Continue supplemental oxygen. 2. COPD exacerbation. Continue inhaled bronchodilators. Continue tapering dose of steroids. Pulmonology on the case. 3. Atrial fibrillation. Rate controlled. Continue calcium channel blockers. The patient on therapeutic anticoagulation. 4. Pulmonary hypertension. PA pressure of 44 mmHg as per 2D echocardiogram done on 02/29/2016. Continue supplemental oxygen. 5. Essential hypertension. Continue antihypertensives. 6. Hypothyroidism. Continue Synthroid. 7. Osteoporosis. Continue bisphosphonates. 8. Fluid, electrolytes and nutrition. Continue low cholesterol diet. 9. DVT prophylaxis. On therapeutic anticoagulation with factor Xa inhibitors. 10. Gastrointestinal prophylaxis. Histamine-2 receptor blockers. PLAN: Continue telemetry monitoring. Continue current care. Case discussed with Dr. Kay. Problems: Subjective 24 Hr Interval Summary Free Text/Dictation Still having difficulty in breathing. Exam/Review of Systems Vital Signs Vitals Vital Signs Date Time Temp Pulse Resp B/P Pulse Ox O2 Delivery O2 Flow Rate FiO2 08/11/16 09:35 88 20 97 Nasal Cannula 3.0 08/11/16 07:16 97.4 132/66 08/11/16 05:31 32 Intake and Output 08/10/16 08/10/16 08/11/16 15:00 23:00 07:00 Intake Total 240 ml Output Total 120 ml Balance 120 ml Exam GENERAL: This is an elderly, slightly overweight female lying in bed in mild respiratory distress. HEENT: Head normocephalic and atraumatic. Eyes: Anicteric sclerae. Conjunctivae clear. ENT: Nasal septum is midline. Oral mucosa is dry. NECK: Supple. JVD noticed. RESPIRATORY: Bilaterally diminished breath sounds. Use of accessory muscles of respiration. Coarse rales. Expiratory wheezing. CARDIAC: Irregularly irregular rhythm. Systolic murmur. ABDOMEN: Soft, nontender and nondistended. Bowel sounds positive in all 4 quadrants. GENITOURINARY: Deferred. EXTREMITIES: No cyanosis, no clubbing, no edema. Peripheral pulses palpable. NEUROLOGIC: The patient is awake, alert and oriented. The patient is primarily [place]ij[place] speaking. Results Result Diagram: 08/11/16 0534 08/11/16 0535 Results 24 hrs Laboratory Tests Test 08/11/16 05:34 08/11/16 05:35 Basophils # 0.0 Basophils % 0.1 Eosinophils # 0.0 Eosinophils % 0.0 Hematocrit 37.7 Hemoglobin 12.2 Lymphocytes # 0.6 L Lymphocytes % 4.7 L Magnesium Level 2.3 Mean Corpuscular Hemoglobin 32.1 Mean Corpuscular Hemoglobin Concent 32.4 Mean Corpuscular Volume 99.2 Mean Platelet Volume 10.6 H Monocytes # 0.6 Monocytes % 5.4 Neutrophils # 10.2 H Neutrophils % 87.7 H Nucleated Red Blood Cells # 0.0 Nucleated Red Blood Cells % 0.2 H Phosphorus Level 3.5 Platelet Count 167 Red Blood Count 3.80 L Red Cell Distribution Width 15.1 H White Blood Count 11.7 H Anion Gap 13 Blood Urea Nitrogen 25 H Calcium Level 7.8 L Carbon Dioxide Level 30 Chloride Level 105 Creatinine 0.92 Glucose Level 115 Potassium Level 4.6 Sodium Level 143 Medications Medications Current Medications Alendronate Sodium (Fosamax) 70 mg Tu@0730 PO ; Start 08/07/16 at 07:30 Ondansetron HCl (Zofran Inj) 4 mg Q6H PRN IV NAUSEA AND/OR VOMITING; Start 08/06 at 21:00 Docusate Sodium (Colace) 250 mg DAILY PRN PO CONSTIPATION; Start 08/06/16 at 21: 00 Senna 2 tab 2 tab QHS PRN PO CONSTIPATION; Start 08/06/16 at 21:00 Ceftriaxone Sodium 50 ml @ 100 mls/hr Q24H IVPB Last administered on 22:30; Admin Dose 100 MLS/HR; Start 08/07/16 at 21:00 Azithromycin (Zithromax 500mg/ NS (Pmx)) 250 ml @ 250 mls/hr Q24H IVPB Last administered on 08/10/16 22:32; Admin Dose 250 MLS/HR; Start 08/07/16 at 22:00 Famotidine (Pepcid) 10 mg BID PO Last administered on 08/11/16 09:02; Admin Dose 10 MG; Start 08/07/16 at 21:00 Apixaban (Eliquis) 5 mg BID PO Last administered on 08/11/16 09:02; Admin Dose 5 MG; Start 08/07/16 at 21:00 Furosemide (Lasix) 20 mg DAILY PO Last administered on 08/11/16 09:02; Admin Dose 20 MG; Start 08/08/16 at 09:00 Acetaminophen (Tylenol Tab) 650 mg Q6H PRN PO PAIN AND OR ELEVATED TEMP Last administered on 08/11/16 06:09; Admin Dose 650 MG; Start 08/07/16 at 20:00 Guaifenesin/ Dextromethorphan (Robitussin Dm Liquid Cup) 5 ml Q4H PRN PO Cough Last administered on 08/08/16 18:20; Admin Dose 5 ML; Start 08/08/16 at 10:30 Prednisone (Prednisone) 40 mg DAILY PO Last administered on 08/11/16 09:01; Admin Dose 40 MG; Start 08/11/16 at 09:00 Diltiazem HCl (Cardizem) 60 mg Q8 PO Last administered on 08/11/16 05:55; Admin Dose 60 MG; Start 08/10/16 at 17:00 EZEQUIEL WOOD NP Aug 11, 2016 11:32
--- NOTE | 2016-08-11 19:12 | CONS ---
Date/Time of Note Date/Time of Note DATE: 08/11/16 TIME: 19:11 Consult Date/Type/Reason Admit Date/Time Aug 06, 2016 at 20:44 Initial Consult Date 08/08/16 Type of Consultation: pulm Subjective No events. Objective Vital Signs Date Time Temp Pulse Resp B/P Pulse Ox O2 Delivery O2 Flow Rate FiO2 08/11/16 16:50 83 19 98 Nasal Cannula 3.0 08/11/16 15:26 98.0 130/60 08/11/16 05:31 32 Intake and Output 08/10/16 08/10/16 08/11/16 15:00 23:00 07:00 Intake Total 240 ml Output Total 120 ml Balance 120 ml HEENT: Neck supple; no JVD; no LAD CVS: RRR, S1 and S2 CHEST: Clear ABD: Soft, NT, + BS EXT: No c/c/e Results/Medications Result Diagram: 08/11/16 0534 08/11/16 0535 Results 24 hrs Laboratory Tests Test 08/11/16 05:34 08/11/16 05:35 Basophils # 0.0 Basophils % 0.1 Eosinophils # 0.0 Eosinophils % 0.0 Hematocrit 37.7 Hemoglobin 12.2 Lymphocytes # 0.6 L Lymphocytes % 4.7 L Magnesium Level 2.3 Mean Corpuscular Hemoglobin 32.1 Mean Corpuscular Hemoglobin Concent 32.4 Mean Corpuscular Volume 99.2 Mean Platelet Volume 10.6 H Monocytes # 0.6 Monocytes % 5.4 Neutrophils # 10.2 H Neutrophils % 87.7 H Nucleated Red Blood Cells # 0.0 Nucleated Red Blood Cells % 0.2 H Phosphorus Level 3.5 Platelet Count 167 Red Blood Count 3.80 L Red Cell Distribution Width 15.1 H White Blood Count 11.7 H Anion Gap 13 Blood Urea Nitrogen 25 H Calcium Level 7.8 L Carbon Dioxide Level 30 Chloride Level 105 Creatinine 0.92 Glucose Level 115 Potassium Level 4.6 Sodium Level 143 Medications Current Medications Alendronate Sodium (Fosamax) 70 mg Tu@0730 PO ; Start 08/07/16 at 07:30 Ondansetron HCl (Zofran Inj) 4 mg Q6H PRN IV NAUSEA AND/OR VOMITING; Start 08/06 at 21:00 Docusate Sodium (Colace) 250 mg DAILY PRN PO CONSTIPATION; Start 08/06/16 at 21: 00 Senna 2 tab 2 tab QHS PRN PO CONSTIPATION; Start 08/06/16 at 21:00 Ceftriaxone Sodium 50 ml @ 100 mls/hr Q24H IVPB Last administered on 22:30; Admin Dose 100 MLS/HR; Start 08/07/16 at 21:00 Azithromycin (Zithromax 500mg/ NS (Pmx)) 250 ml @ 250 mls/hr Q24H IVPB Last administered on 08/10/16 22:32; Admin Dose 250 MLS/HR; Start 08/07/16 at 22:00 Famotidine (Pepcid) 10 mg BID PO Last administered on 08/11/16 09:02; Admin Dose 10 MG; Start 08/07/16 at 21:00 Apixaban (Eliquis) 5 mg BID PO Last administered on 08/11/16 09:02; Admin Dose 5 MG; Start 08/07/16 at 21:00 Furosemide (Lasix) 20 mg DAILY PO Last administered on 08/11/16 09:02; Admin Dose 20 MG; Start 08/08/16 at 09:00 Acetaminophen (Tylenol Tab) 650 mg Q6H PRN PO PAIN AND OR ELEVATED TEMP Last administered on 08/11/16 06:09; Admin Dose 650 MG; Start 08/07/16 at 20:00 Guaifenesin/ Dextromethorphan (Robitussin Dm Liquid Cup) 5 ml Q4H PRN PO Cough Last administered on 08/08/16 18:20; Admin Dose 5 ML; Start 08/08/16 at 10:30 Prednisone (Prednisone) 40 mg DAILY PO Last administered on 08/11/16 09:01; Admin Dose 40 MG; Start 08/11/16 at 09:00 Diltiazem HCl (Cardizem) 60 mg Q8 PO Last administered on 08/11/16 14:17; Admin Dose 60 MG; Start 08/10/16 at 17:00 Assessment/Plan Additional Assessment/Plan IMP: 1. COPD Exacerbation RECS: 1. CS taper 2. Start LABA/ICS and LABA 3. Mobilize CHRISTIAN PINEDO MD Aug 11, 2016 19:12
[2016-08-11] MEDS: CEFTRIAXONE 1 GM/50 ML (PMX) 50 ML IVPB SCH (20:58)
[2016-08-11] MEDS: AZITHROMYCIN 500MG/NS (PMX) 250 ML IVPB SCH (22:17)
[2016-08-12] VITALS (11 sets, daily range): BP systolic 118–150; BP diastolic 55–74; PULSE 60–80; RESP 16–20
[2016-08-12] MEDS: ALBUTEROL/IPRATROPIUM (NEB) 3 ML AMP HHN SCH ×6 (00:21→21:39)
[2016-08-12] MEDS: DILTIAZEM 60 MG TAB PO SCH ×3 (05:02→21:11)
[2016-08-12] MEDS: LEVOTHYROXINE 75 MCG TAB PO SCH (05:26)
[2016-08-12] MEDS: SENNA TAB PO PRN (05:26)
[2016-08-12 06:40] LABS: HEMATOCRIT 38.9 % (37.0-47.0); HEMOGLOBIN 12.8 g/dl (12.0-16.0); LYMPHOCYTES # 0.8 10^3/ul (0.8-2.9); LYMPHOCYTES % 8.3 % (15.0-51.0); MEAN CORPUSCULAR HEMOGLOBIN 33.1 pg (29.0-33.0); MEAN CORPUSCULAR VOLUME 100.1 fl (82.0-101.0); MEAN PLATELET VOLUME 8.8 fl (7.4-10.4); MONOCYTE # 0.6 10^3/ul (0.3-0.9); MONOCYTES % 6.8 % (0.0-11.0); NEUTROPHIL # 7.8 10^3/ul (1.6-7.5); NEUTROPHILS % 84.9 % (39.0-77.0); PLATELET COUNT 171 10^3/UL (140-440); RED BLOOD COUNT 3.88 10^6/ul (4.20-5.40); RED CELL DISTRIBUTION WIDTH 16.3 % (11.5-14.5); UNCORRECTED WBC 9.2 10^3/ul (4.8-10.8); WHITE BLOOD COUNT 9.2 10^3/ul (4.8-10.8)
[2016-08-12 06:44] LABS: CONDITION 1; LH ANALYZER COMMENTS 1
[2016-08-12 07:14] LABS: MAGNESIUM 2.2 mg/dl (1.7-2.5); PHOSPHORUS 3.3 mg/dl (2.5-4.9)
[2016-08-12 07:15] LABS: POTASSIUM 5.2 mmol/L (3.5-5.1)
[2016-08-12 07:17] LABS: CREATININE 0.82 mg/dl (0.44-1.00)
[2016-08-12 07:18] LABS: CALCIUM 8.2 mg/dl (8.4-10.2)
[2016-08-12] MEDS: FAMOTIDINE 20 MG TAB PO SCH ×2 (08:32→21:10)
[2016-08-12] MEDS: predniSONE 20 MG TAB PO SCH (08:32)
[2016-08-12] MEDS: FUROSEMIDE 20 MG TAB PO SCH (08:32)
[2016-08-12] MEDS: APIXABAN 5 MG TABLET PO SCH ×2 (08:33→21:09)
--- NOTE | 2016-08-12 09:11 | PN ---
Date/Time of Note Date/Time of Note DATE: 08/12/16 TIME: 09:09 Assessment/Plan VTE Prophylaxis VTE Prophylaxis Intervention: other (Factor Xa inhibitors.) Lines/Catheters IV [facility] Type (from [facility] Sal[facility] Lock Urinary Cath still in place: No Assessment/Plan Chief Complaint/Hosp Course 1. Acute respiratory failure. Hypoxic. Most probably secondary to underlying chronic obstructive pulmonary disease exacerbation with a component of diastolic heart failure. Continue inhaled bronchodilators. Continue supplemental oxygen. 2. COPD exacerbation. Continue inhaled bronchodilators. Continue tapering dose of steroids. Pulmonology on the case. 3. Atrial fibrillation. Rate controlled. Continue calcium channel blockers. The patient on therapeutic anticoagulation. 4. Pulmonary hypertension. PA pressure of 44 mmHg as per 2D echocardiogram done on 02/29/2016. Continue supplemental oxygen. 5. Essential hypertension. Continue antihypertensives. 6. Hypothyroidism. Continue Synthroid. 7. Osteoporosis. Continue bisphosphonates. 8. Fluid, electrolytes and nutrition. Continue low cholesterol diet. 9. DVT prophylaxis. On therapeutic anticoagulation with factor Xa inhibitors. 10. Gastrointestinal prophylaxis. Histamine-2 receptor blockers. PLAN: Continue telemetry monitoring. Continue current care. A single dose of Lasix was given to treat the hyperkalemia. Case discussed with Dr. Kay. Problems: Subjective 24 Hr Interval Summary Free Text/Dictation Denies any chest pain. Complains of dyspnea. Exam/Review of Systems Vital Signs Vitals Vital Signs Date Time Temp Pulse Resp B/P Pulse Ox O2 Delivery O2 Flow Rate FiO2 08/12/16 08:51 3.0 08/12/16 08:51 83 22 99 Nasal Cannula 08/12/16 08:03 98.4 147/74 08/11/16 05:31 32 Intake and Output 08/11/16 08/11/16 08/12/16 15:00 23:00 07:00 Intake Total 250 ml 600 ml 250 ml Balance 250 ml 600 ml 250 ml Exam GENERAL: This is an elderly, slightly overweight female lying in bed in mild respiratory distress. HEENT: Head normocephalic and atraumatic. Eyes: Anicteric sclerae. Conjunctivae clear. ENT: Nasal septum is midline. Oral mucosa is dry. NECK: Supple. JVD noticed. RESPIRATORY: Bilaterally diminished breath sounds. Use of accessory muscles of respiration. Coarse rales. Expiratory wheezing. CARDIAC: Irregularly irregular rhythm. Systolic murmur. ABDOMEN: Soft, nontender and nondistended. Bowel sounds positive in all 4 quadrants. GENITOURINARY: Deferred. EXTREMITIES: No cyanosis, no clubbing, no edema. Peripheral pulses palpable. NEUROLOGIC: The patient is awake, alert and oriented. The patient is primarily Tongan speaking. Results Result Diagram: 08/12/16 0535 08/12/16 0535 Results 24 hrs Laboratory Tests Test 08/12/16 05:35 Anion Gap 12 Basophils # 0.0 Basophils % 0.0 Blood Morphology Comment Blood Urea Nitrogen 21 H Calcium Level 8.2 L Carbon Dioxide Level 31 Chloride Level 104 Creatinine 0.82 Eosinophils # 0.0 Eosinophils % 0.0 Glucose Level 106 Hematocrit 38.9 Hemoglobin 12.8 Lymphocytes # 0.8 Lymphocytes % 8.3 L Magnesium Level 2.2 Mean Corpuscular Hemoglobin 33.1 H Mean Corpuscular Hemoglobin Concent 33.0 Mean Corpuscular Volume 100.1 Mean Platelet Volume 8.8 Monocytes # 0.6 Monocytes % 6.8 Neutrophils # 7.8 H Neutrophils % 84.9 H Nucleated Red Blood Cells # 0.0 Nucleated Red Blood Cells % 0.0 Phosphorus Level 3.3 Platelet Count 171 Potassium Level 5.2 H Red Blood Count 3.88 L Red Cell Distribution Width 16.3 H Sodium Level 142 White Blood Count 9.2 # Medications Medications Current Medications Alendronate Sodium (Fosamax) 70 mg Tu@0730 PO ; Start 08/07/16 at 07:30 Ondansetron HCl (Zofran Inj) 4 mg Q6H PRN IV NAUSEA AND/OR VOMITING; Start 08/06 at 21:00 Docusate Sodium (Colace) 250 mg DAILY PRN PO CONSTIPATION; Start 08/06/16 at 21: 00 Senna 2 tab 2 tab QHS PRN PO CONSTIPATION Last administered on 08/12/16 05:26 ; Admin Dose 2 TAB; Start 08/06/16 at 21:00 Ceftriaxone Sodium 50 ml @ 100 mls/hr Q24H IVPB Last administered on 20:58; Admin Dose 100 MLS/HR; Start 08/07/16 at 21:00 Azithromycin (Zithromax 500mg/ NS (Pmx)) 250 ml @ 250 mls/hr Q24H IVPB Last administered on 08/11/16 22:17; Admin Dose 250 MLS/HR; Start 08/07/16 at 22:00 Famotidine (Pepcid) 10 mg BID PO Last administered on 08/12/16 08:32; Admin Dose 10 MG; Start 08/07/16 at 21:00 Apixaban (Eliquis) 5 mg BID PO Last administered on 08/12/16 08:33; Admin Dose 5 MG; Start 08/07/16 at 21:00 Furosemide (Lasix) 20 mg DAILY PO Last administered on 08/12/16 08:32; Admin Dose 20 MG; Start 08/08/16 at 09:00 Acetaminophen (Tylenol Tab) 650 mg Q6H PRN PO PAIN AND OR ELEVATED TEMP Last administered on 08/11/16 06:09; Admin Dose 650 MG; Start 08/07/16 at 20:00 Guaifenesin/ Dextromethorphan (Robitussin Dm Liquid Cup) 5 ml Q4H PRN PO Cough Last administered on 08/08/16 18:20; Admin Dose 5 ML; Start 08/08/16 at 10:30 Prednisone (Prednisone) 40 mg DAILY PO Last administered on 08/12/16 08:32; Admin Dose 40 MG; Start 08/11/16 at 09:00 Diltiazem HCl (Cardizem) 60 mg Q8 PO Last administered on 08/12/16 05:02; Admin Dose 60 MG; Start 08/10/16 at 17:00 EZEQUIEL WOOD NP Aug 12, 2016 09:11
--- NOTE | 2016-08-12 12:24 | CONS ---
Date/Time of Note Date/Time of Note DATE: 08/12/16 TIME: 12:23 Consultation Date/Type/Reason Admit Date/Time Aug 06, 2016 at 20:44 Initial Consult Date 08/08/16 Type of Consultation: pulm 24 HR Interval Summary Free Text/Dictation Shortness of breath likely secondary to COPD exacerbation Mild acute decompensated diastolic congestive heart failure Preserved ejection fraction Atrial fibrillation with rapid ventricular rates, improve -Patient still with episodes of palpitations usually when wheezing and shortness of breath worsens. Would increase dose of Cardizem given blood pressure has improved, tolerating anticoagulation. Continue maintenance diuretics. Exam/Review of Systems Vital Signs Vitals Vital Signs Date Time Temp Pulse Resp B/P Pulse Ox O2 Delivery O2 Flow Rate FiO2 08/12/16 12:20 74 08/12/16 12:01 98.7 20 150/73 97 08/12/16 08:51 3.0 08/12/16 08:51 Nasal Cannula 08/11/16 05:31 32 Intake and Output 08/11/16 08/11/16 08/12/16 14:59 22:59 06:59 Intake Total 250 ml 600 ml 250 ml Balance 250 ml 600 ml 250 ml Exam Respiratory: congested cough, crackles/rales Results Result Diagram: 08/12/16 0535 08/12/16 0535 Results 24 hrs Laboratory Tests Test 08/12/16 05:35 Anion Gap 12 Basophils # 0.0 Basophils % 0.0 Blood Morphology Comment Blood Urea Nitrogen 21 H Calcium Level 8.2 L Carbon Dioxide Level 31 Chloride Level 104 Creatinine 0.82 Eosinophils # 0.0 Eosinophils % 0.0 Glucose Level 106 Hematocrit 38.9 Hemoglobin 12.8 Lymphocytes # 0.8 Lymphocytes % 8.3 L Magnesium Level 2.2 Mean Corpuscular Hemoglobin 33.1 H Mean Corpuscular Hemoglobin Concent 33.0 Mean Corpuscular Volume 100.1 Mean Platelet Volume 8.8 Monocytes # 0.6 Monocytes % 6.8 Neutrophils # 7.8 H Neutrophils % 84.9 H Nucleated Red Blood Cells # 0.0 Nucleated Red Blood Cells % 0.0 Phosphorus Level 3.3 Platelet Count 171 Potassium Level 5.2 H Red Blood Count 3.88 L Red Cell Distribution Width 16.3 H Sodium Level 142 White Blood Count 9.2 # Medications Medications Current Medications Alendronate Sodium (Fosamax) 70 mg Tu@0730 PO ; Start 08/07/16 at 07:30 Ondansetron HCl (Zofran Inj) 4 mg Q6H PRN IV NAUSEA AND/OR VOMITING; Start 08/06 at 21:00 Docusate Sodium (Colace) 250 mg DAILY PRN PO CONSTIPATION; Start 08/06/16 at 21: 00 Senna 2 tab 2 tab QHS PRN PO CONSTIPATION Last administered on 08/12/16 05:26 ; Admin Dose 2 TAB; Start 08/06/16 at 21:00 Ceftriaxone Sodium 50 ml @ 100 mls/hr Q24H IVPB Last administered on 20:58; Admin Dose 100 MLS/HR; Start 08/07/16 at 21:00 Azithromycin (Zithromax 500mg/ NS (Pmx)) 250 ml @ 250 mls/hr Q24H IVPB Last administered on 08/11/16 22:17; Admin Dose 250 MLS/HR; Start 08/07/16 at 22:00 Famotidine (Pepcid) 10 mg BID PO Last administered on 08/12/16 08:32; Admin Dose 10 MG; Start 08/07/16 at 21:00 Apixaban (Eliquis) 5 mg BID PO Last administered on 08/12/16 08:33; Admin Dose 5 MG; Start 08/07/16 at 21:00 Furosemide (Lasix) 20 mg DAILY PO Last administered on 08/12/16 08:32; Admin Dose 20 MG; Start 08/08/16 at 09:00 Acetaminophen (Tylenol Tab) 650 mg Q6H PRN PO PAIN AND OR ELEVATED TEMP Last administered on 08/11/16 06:09; Admin Dose 650 MG; Start 08/07/16 at 20:00 Guaifenesin/ Dextromethorphan (Robitussin Dm Liquid Cup) 5 ml Q4H PRN PO Cough Last administered on 08/08/16 18:20; Admin Dose 5 ML; Start 08/08/16 at 10:30 Prednisone (Prednisone) 40 mg DAILY PO Last administered on 08/12/16 08:32; Admin Dose 40 MG; Start 08/11/16 at 09:00 Diltiazem HCl (Cardizem) 60 mg Q8 PO Last administered on 08/12/16 05:02; Admin Dose 60 MG; Start 08/10/16 at 17:00 BRADLEY CLARKE MD Aug 12, 2016 12:24
--- NOTE | 2016-08-12 15:57 | CONS ---
Date/Time of Note Date/Time of Note DATE: 08/12/16 TIME: 15:55 Consult Date/Type/Reason Admit Date/Time Aug 06, 2016 at 20:44 Initial Consult Date 08/08/16 Type of Consultation: pulm Subjective No events. Still with some BORJA. Objective Vital Signs Date Time Temp Pulse Resp B/P Pulse Ox O2 Delivery O2 Flow Rate FiO2 08/12/16 13:46 69 22 98 Nasal Cannula 3.0 08/12/16 12:01 98.7 150/73 08/11/16 05:31 32 Intake and Output 08/11/16 08/11/16 08/12/16 15:00 23:00 07:00 Intake Total 250 ml 600 ml 250 ml Balance 250 ml 600 ml 250 ml HEENT: Neck supple; no JVD; no LAD CVS: Irreg irreg, S1 and S2 CHEST: Clear ABD: Soft, NT, + BS EXT: No c/c/e Results/Medications Result Diagram: 08/12/16 0535 08/12/16 0535 Results 24 hrs Laboratory Tests Test 08/12/16 05:35 Anion Gap 12 Basophils # 0.0 Basophils % 0.0 Blood Morphology Comment Blood Urea Nitrogen 21 H Calcium Level 8.2 L Carbon Dioxide Level 31 Chloride Level 104 Creatinine 0.82 Eosinophils # 0.0 Eosinophils % 0.0 Glucose Level 106 Hematocrit 38.9 Hemoglobin 12.8 Lymphocytes # 0.8 Lymphocytes % 8.3 L Magnesium Level 2.2 Mean Corpuscular Hemoglobin 33.1 H Mean Corpuscular Hemoglobin Concent 33.0 Mean Corpuscular Volume 100.1 Mean Platelet Volume 8.8 Monocytes # 0.6 Monocytes % 6.8 Neutrophils # 7.8 H Neutrophils % 84.9 H Nucleated Red Blood Cells # 0.0 Nucleated Red Blood Cells % 0.0 Phosphorus Level 3.3 Platelet Count 171 Potassium Level 5.2 H Red Blood Count 3.88 L Red Cell Distribution Width 16.3 H Sodium Level 142 White Blood Count 9.2 # Medications Current Medications Alendronate Sodium (Fosamax) 70 mg Tu@0730 PO ; Start 08/07/16 at 07:30 Ondansetron HCl (Zofran Inj) 4 mg Q6H PRN IV NAUSEA AND/OR VOMITING; Start 08/06 at 21:00 Docusate Sodium (Colace) 250 mg DAILY PRN PO CONSTIPATION; Start 08/06/16 at 21: 00 Senna 2 tab 2 tab QHS PRN PO CONSTIPATION Last administered on 08/12/16 05:26 ; Admin Dose 2 TAB; Start 08/06/16 at 21:00 Ceftriaxone Sodium 50 ml @ 100 mls/hr Q24H IVPB Last administered on 20:58; Admin Dose 100 MLS/HR; Start 08/07/16 at 21:00 Azithromycin (Zithromax 500mg/ NS (Pmx)) 250 ml @ 250 mls/hr Q24H IVPB Last administered on 08/11/16 22:17; Admin Dose 250 MLS/HR; Start 08/07/16 at 22:00 Famotidine (Pepcid) 10 mg BID PO Last administered on 08/12/16 08:32; Admin Dose 10 MG; Start 08/07/16 at 21:00 Apixaban (Eliquis) 5 mg BID PO Last administered on 08/12/16 08:33; Admin Dose 5 MG; Start 08/07/16 at 21:00 Furosemide (Lasix) 20 mg DAILY PO Last administered on 08/12/16 08:32; Admin Dose 20 MG; Start 08/08/16 at 09:00 Acetaminophen (Tylenol Tab) 650 mg Q6H PRN PO PAIN AND OR ELEVATED TEMP Last administered on 08/11/16 06:09; Admin Dose 650 MG; Start 08/07/16 at 20:00 Guaifenesin/ Dextromethorphan (Robitussin Dm Liquid Cup) 5 ml Q4H PRN PO Cough Last administered on 08/08/16 18:20; Admin Dose 5 ML; Start 08/08/16 at 10:30 Prednisone (Prednisone) 40 mg DAILY PO Last administered on 08/12/16 08:32; Admin Dose 40 MG; Start 08/11/16 at 09:00 Diltiazem HCl (Cardizem) 60 mg Q8 PO Last administered on 08/12/16 13:06; Admin Dose 60 MG; Start 08/10/16 at 17:00 Assessment/Plan Additional Assessment/Plan IMP: 1. COPD Exacerbation 2. Afib 3. Mild CHF RECS: 1. CS taper 2. Start LABA/ICS and LABA 3. Mobilize OOB 4. Gentle diuresis CHRISTIAN VARGAS MD Aug 12, 2016 15:57
[2016-08-12] MEDS: CEFTRIAXONE 1 GM/50 ML (PMX) 50 ML IVPB SCH (21:09)
[2016-08-12] MEDS: AZITHROMYCIN 500MG/NS (PMX) 250 ML IVPB SCH (22:45)
[2016-08-13] VITALS (12 sets, daily range): BP systolic 111–149; BP diastolic 51–76; PULSE 70–87; RESP 16–20
[2016-08-13] MEDS: ALBUTEROL/IPRATROPIUM (NEB) 3 ML AMP HHN SCH ×6 (00:41→20:11)
[2016-08-13] MEDS: DILTIAZEM 60 MG TAB PO SCH ×3 (05:50→21:24)
[2016-08-13] MEDS: LEVOTHYROXINE 75 MCG TAB PO SCH (05:50)
[2016-08-13 06:20] LABS: HEMOGLOBIN 12.6 g/dl (12.0-16.0); LYMPHOCYTES % 12.7 % (15.0-51.0); MEAN CORPUSCULAR HEMOGLOBIN 33.1 pg (29.0-33.0); MEAN CORPUSCULAR HGB CONC 33.1 g/dl (32.0-37.0); MEAN CORPUSCULAR VOLUME 99.9 fl (82.0-101.0); MEAN PLATELET VOLUME 8.2 fl (7.4-10.4); MONOCYTE # 0.6 10^3/ul (0.3-0.9); MONOCYTES % 7.5 % (0.0-11.0); NEUTROPHIL # 6.5 10^3/ul (1.6-7.5); NEUTROPHILS % 79.8 % (39.0-77.0); PLATELET COUNT 174 10^3/UL (140-440); RED CELL DISTRIBUTION WIDTH 16.3 % (11.5-14.5); UNCORRECTED WBC 8.2 10^3/ul (4.8-10.8); WHITE BLOOD COUNT 8.2 10^3/ul (4.8-10.8)
[2016-08-13 06:30] LABS: CONDITION 1; LH ANALYZER COMMENTS 1
[2016-08-13 06:33] LABS: POTASSIUM 4.9 mmol/L (3.5-5.1)
[2016-08-13 06:36] LABS: CREATININE 0.97 mg/dl (0.44-1.00)
[2016-08-13 06:36] LABS: MAGNESIUM 2.2 mg/dl (1.7-2.5); PHOSPHORUS 3.1 mg/dl (2.5-4.9)
[2016-08-13 06:37] LABS: CALCIUM 7.8 mg/dl (8.4-10.2)
[2016-08-13] MEDS: FUROSEMIDE 20 MG TAB PO SCH (08:20)
[2016-08-13] MEDS: predniSONE 20 MG TAB PO SCH (08:20)
[2016-08-13] MEDS: FAMOTIDINE 20 MG TAB PO SCH ×2 (08:20→21:24)
[2016-08-13] MEDS: APIXABAN 5 MG TABLET PO SCH ×2 (08:20→21:23)
--- NOTE | 2016-08-13 10:18 | CONS ---
Date/Time of Note Date/Time of Note DATE: 08/13/16 TIME: 10:15 Assessment/Plan Assessment/Plan Additional Assessment/Plan Assessment and recommendation next 1. Patient admitted with severe COPD exacerbation doing very well now with superimposed acute bronchitis which is improved as well next 2. Chronic atrial fibrillation with rate well controlled 3. Hypothyroidism. Next Taper down prednisone to 20 mg daily with further tapering down on outpatient basis. Meanwhile I would recommend stopping the antibiotics that his Rocephin and Zithromax. Consider acting Advair or Dulera on outpatient basis on a regular dosing regimen. Patient also would benefit from having a DuoNeb nebulizer at home to be used at least 3 times daily and as needed. Consultation Date/Type/Reason Admit Date/Time Aug 06, 2016 at 20:44 Initial Consult Date 08/08/16 Type of Consultation: pulm 24 HR Interval Summary Free Text/Dictation Patient condition is stable. Denies any shortness of breath. Any cough. Any sputum production. Denies any fever chills. General examination; elderly lady, awake alert currently in no distress. Exam/Review of Systems Vital Signs Vitals Vital Signs Date Time Temp Pulse Resp B/P Pulse Ox O2 Delivery O2 Flow Rate FiO2 08/13/16 09:37 84 08/13/16 08:58 3.0 08/13/16 08:58 20 97 Nasal Cannula 08/13/16 07:56 98.4 137/76 08/11/16 05:31 32 Intake and Output 08/12/16 08/12/16 08/13/16 15:00 23:00 07:00 Intake Total 600 ml 400 ml Balance 600 ml 400 ml Exam H EENT examination; supple neck, no JVD. No lymphadenopathy. Patient has a right surgical pupil, left eye has a cataract. Patient is mostly edentulous. No neck masses. No thyromegaly. No neck bruits. Chest examination; diminished breath sounds bilaterally with very minimal expiratory wheezing in lung bases bilaterally. S1-S2 audible, irregular rhythm. No murmurs. Abdomen examination; soft, nontender. No organomegaly. Bowel sounds audible. Extremity examination; no peripheral edema. FILLING WINDER examination; no focal deficit. Results Result Diagram: 08/13/16 0547 08/13/16 0542 Results 24 hrs Laboratory Tests Test 08/13/16 05:42 08/13/16 05:47 Anion Gap 11 Blood Urea Nitrogen 23 H Calcium Level 7.8 L Carbon Dioxide Level 31 Chloride Level 106 Creatinine 0.97 Glucose Level 99 Potassium Level 4.9 Sodium Level 143 Basophils # 0.0 Basophils % 0.0 Blood Morphology Comment Eosinophils # 0.0 Eosinophils % 0.0 Hematocrit 38.0 Hemoglobin 12.6 Lymphocytes # 1.0 Lymphocytes % 12.7 L Magnesium Level 2.2 Mean Corpuscular Hemoglobin 33.1 H Mean Corpuscular Hemoglobin Concent 33.1 Mean Corpuscular Volume 99.9 Mean Platelet Volume 8.2 Monocytes # 0.6 Monocytes % 7.5 Neutrophils # 6.5 Neutrophils % 79.8 H Nucleated Red Blood Cells # 0.0 Nucleated Red Blood Cells % 0.0 Phosphorus Level 3.1 Platelet Count 174 Red Blood Count 3.80 L Red Cell Distribution Width 16.3 H White Blood Count 8.2 Medications Medications Current Medications Alendronate Sodium (Fosamax) 70 mg Tu@0730 PO ; Start 08/07/16 at 07:30 Ondansetron HCl (Zofran Inj) 4 mg Q6H PRN IV NAUSEA AND/OR VOMITING; Start 08/06 at 21:00 Docusate Sodium (Colace) 250 mg DAILY PRN PO CONSTIPATION; Start 08/06/16 at 21: 00 Senna (Senokot) 2 tab QHS PRN PO CONSTIPATION Last administered on 08/12/16 05 :26; Admin Dose 2 TAB; Start 08/06/16 at 21:00 Famotidine (Pepcid) 10 mg BID PO Last administered on 08/13/16 08:20; Admin Dose 10 MG; Start 08/07/16 at 21:00 Apixaban (Eliquis) 5 mg BID PO Last administered on 08/13/16 08:20; Admin Dose 5 MG; Start 08/07/16 at 21:00 Furosemide (Lasix) 20 mg DAILY PO Last administered on 08/13/16 08:20; Admin Dose 20 MG; Start 08/08/16 at 09:00 Acetaminophen (Tylenol Tab) 650 mg Q6H PRN PO PAIN AND OR ELEVATED TEMP Last administered on 08/11/16 06:09; Admin Dose 650 MG; Start 08/07/16 at 20:00 Guaifenesin/ Dextromethorphan (Robitussin Dm Liquid Cup) 5 ml Q4H PRN PO Cough Last administered on 08/08/16 18:20; Admin Dose 5 ML; Start 08/08/16 at 10:30 Prednisone (Prednisone) 40 mg DAILY PO Last administered on 08/13/16 08:20; Admin Dose 40 MG; Start 08/11/16 at 09:00 Diltiazem HCl (Cardizem) 60 mg Q8 PO Last administered on 08/13/16 05:50; Admin Dose 60 MG; Start 08/10/16 at 17:00 RADHA JONES Aug 13, 2016 10:18
[2016-08-13] MEDS ORDERED: predniSONE 20 MG TAB PO ONE (10:30)
--- NOTE | 2016-08-13 13:23 | CONS ---
Date/Time of Note Date/Time of Note DATE: 08/13/16 TIME: 13:22 Assessment/Plan Assessment/Plan Additional Assessment/Plan Shortness of breath likely secondary to COPD exacerbation Mild acute decompensated diastolic congestive heart failure Preserved ejection fraction Atrial fibrillation with rapid ventricular rates, improve -Patient with improvement in heart rates. Respiratory status is improving. With switch Cardizem to long-acting. Continue anticoagulation. DC planning Consultation Date/Type/Reason Admit Date/Time Aug 06, 2016 at 20:44 Initial Consult Date 08/08/16 Type of Consultation: cv 24 HR Interval Summary Free Text/Dictation Shortness of breath is significantly better, denies palpitations Exam/Review of Systems Vital Signs Vitals Vital Signs Date Time Temp Pulse Resp B/P Pulse Ox O2 Delivery O2 Flow Rate FiO2 08/13/16 13:08 86 18 97 Nasal Cannula 3.0 08/13/16 12:12 98.4 111/54 08/11/16 05:31 32 Intake and Output 08/12/16 08/12/16 08/13/16 15:00 23:00 07:00 Intake Total 600 ml 400 ml Balance 600 ml 400 ml Exam Undergoing nebulizer treatment Constitutional: alert, obese, oriented Head: normocephalic Neck: supple Respiratory: other (Coarse breath sounds bilaterally with scattered rhonchi and mild and expiratory wheezing) Cardiovascular: irregular rhythm, other (S1-S2 heard) Gastrointestinal: bowel sounds, non-tender, soft Extremities: edema (Trace) Results Result Diagram: 08/13/16 0547 08/13/16 0542 Results 24 hrs Laboratory Tests Test 08/13/16 05:42 08/13/16 05:47 Anion Gap 11 Blood Urea Nitrogen 23 H Calcium Level 7.8 L Carbon Dioxide Level 31 Chloride Level 106 Creatinine 0.97 Glucose Level 99 Potassium Level 4.9 Sodium Level 143 Basophils # 0.0 Basophils % 0.0 Blood Morphology Comment Eosinophils # 0.0 Eosinophils % 0.0 Hematocrit 38.0 Hemoglobin 12.6 Lymphocytes # 1.0 Lymphocytes % 12.7 L Magnesium Level 2.2 Mean Corpuscular Hemoglobin 33.1 H Mean Corpuscular Hemoglobin Concent 33.1 Mean Corpuscular Volume 99.9 Mean Platelet Volume 8.2 Monocytes # 0.6 Monocytes % 7.5 Neutrophils # 6.5 Neutrophils % 79.8 H Nucleated Red Blood Cells # 0.0 Nucleated Red Blood Cells % 0.0 Phosphorus Level 3.1 Platelet Count 174 Red Blood Count 3.80 L Red Cell Distribution Width 16.3 H White Blood Count 8.2 Medications Medications Current Medications Alendronate Sodium (Fosamax) 70 mg Tu@0730 PO ; Start 08/07/16 at 07:30 Ondansetron HCl (Zofran Inj) 4 mg Q6H PRN IV NAUSEA AND/OR VOMITING; Start 08/06 at 21:00 Docusate Sodium (Colace) 250 mg DAILY PRN PO CONSTIPATION; Start 08/06/16 at 21: 00 Senna (Senokot) 2 tab QHS PRN PO CONSTIPATION Last administered on 08/12/16 05 :26; Admin Dose 2 TAB; Start 08/06/16 at 21:00 Famotidine (Pepcid) 10 mg BID PO Last administered on 08/13/16 08:20; Admin Dose 10 MG; Start 08/07/16 at 21:00 Apixaban (Eliquis) 5 mg BID PO Last administered on 08/13/16 08:20; Admin Dose 5 MG; Start 08/07/16 at 21:00 Furosemide (Lasix) 20 mg DAILY PO Last administered on 08/13/16 08:20; Admin Dose 20 MG; Start 08/08/16 at 09:00 Acetaminophen (Tylenol Tab) 650 mg Q6H PRN PO PAIN AND OR ELEVATED TEMP Last administered on 08/11/16 06:09; Admin Dose 650 MG; Start 08/07/16 at 20:00 Guaifenesin/ Dextromethorphan (Robitussin Dm Liquid Cup) 5 ml Q4H PRN PO Cough Last administered on 08/08/16 18:20; Admin Dose 5 ML; Start 08/08/16 at 10:30 Diltiazem HCl (Cardizem) 60 mg Q8 PO Last administered on 08/13/16 05:50; Admin Dose 60 MG; Start 08/10/16 at 17:00 Paul Mora DO Aug 13, 2016 13:23
--- NOTE | 2016-08-13 15:07 | PN ---
Date/Time of Note Date/Time of Note DATE: 08/13/16 TIME: 15:02 Assessment/Plan VTE Prophylaxis VTE Prophylaxis Intervention: other (eliquis) Lines/Catheters IV [facility]from [facility] Saline Lock Urinary Cath still in place: No Assessment/Plan Chief Complaint/Hosp Course Assessment and plan 1. Acute respiratory failure secondary to underlying COPD. Continue on bronchodilator. Continue on O2 supplementation titrate down as tolerated 2. CHF with diastolic dysfunction. Patient with echocardiogram with preserved ejection fraction. Continue on diuretic medication 3. Atrial Fibrillation. Continue on diltiazem. Continue on anticoagulation. 4. Pulmonary hypertension. Patient noted with PASP of 44 mmHg. Continue O2 supplement 5. Essential hypertension. Continue on anti-hypertensives and adjust as needed 6. Hypothyroidism. Continue on Synthroid 7. Osteoporosis. Continue on bisphosphonates DVT prophylaxis: Eliquis GERD prophylaxis: H2 mayank Disposition and plan: Continue bronchodilators. Await clinical improvement of respiratory status. Discharge when medically stable and cleared by consultants Discussed plan of care with Dr. Nichole Problems: Subjective 24 Hr Interval Summary Free Text/Dictation Still with reported shortness of breath. Exam/Review of Systems Vital Signs Vitals Vital Signs Date Time Temp Pulse Resp B/P Pulse Ox O2 Delivery O2 Flow Rate FiO2 08/13/16 13:08 86 18 97 Nasal Cannula 3.0 08/13/16 12:12 98.4 111/54 08/11/16 05:31 32 Intake and Output 08/12/16 08/12/16 08/13/16 14:59 22:59 06:59 Intake Total 600 ml 400 ml Balance 600 ml 400 ml Exam General: No acute signs or symptoms of distress Eyes: pupils equal round, Anicteric sclera Neck: Supple nontender, no JVD Cardiac: S1, S2 auscultated, regular rhythm and rate Pulmonary: Diminished at lung bases GI: Abdomen soft nontender nondistended, bowel sounds active Extremities: No edema bilateral lower extremities Skin: Clean dry and intact Neurologic: Alert to person place and time and situation Results Result Diagram: 08/13/16 0547 08/13/16 0542 Results 24 hrs Laboratory Tests Test 08/13/16 05:42 08/13/16 05:47 Anion Gap 11 Blood Urea Nitrogen 23 H Calcium Level 7.8 L Carbon Dioxide Level 31 Chloride Level 106 Creatinine 0.97 Glucose Level 99 Potassium Level 4.9 Sodium Level 143 Basophils # 0.0 Basophils % 0.0 Blood Morphology Comment Eosinophils # 0.0 Eosinophils % 0.0 Hematocrit 38.0 Hemoglobin 12.6 Lymphocytes # 1.0 Lymphocytes % 12.7 L Magnesium Level 2.2 Mean Corpuscular Hemoglobin 33.1 H Mean Corpuscular Hemoglobin Concent 33.1 Mean Corpuscular Volume 99.9 Mean Platelet Volume 8.2 Monocytes # 0.6 Monocytes % 7.5 Neutrophils # 6.5 Neutrophils % 79.8 H Nucleated Red Blood Cells # 0.0 Nucleated Red Blood Cells % 0.0 Phosphorus Level 3.1 Platelet Count 174 Red Blood Count 3.80 L Red Cell Distribution Width 16.3 H White Blood Count 8.2 Medications Medications Current Medications Alendronate Sodium (Fosamax) 70 mg Tu@0730 PO ; Start 08/07/16 at 07:30 Ondansetron HCl (Zofran Inj) 4 mg Q6H PRN IV NAUSEA AND/OR VOMITING; Start 08/06 at 21:00 Docusate Sodium (Colace) 250 mg DAILY PRN PO CONSTIPATION; Start 08/06/16 at 21: 00 Senna (Senokot) 2 tab QHS PRN PO CONSTIPATION Last administered on 08/12/16 05 :26; Admin Dose 2 TAB; Start 08/06/16 at 21:00 Famotidine (Pepcid) 10 mg BID PO Last administered on 08/13/16 08:20; Admin Dose 10 MG; Start 08/07/16 at 21:00 Apixaban (Eliquis) 5 mg BID PO Last administered on 08/13/16 08:20; Admin Dose 5 MG; Start 08/07/16 at 21:00 Furosemide (Lasix) 20 mg DAILY PO Last administered on 08/13/16 08:20; Admin Dose 20 MG; Start 08/08/16 at 09:00 Acetaminophen (Tylenol Tab) 650 mg Q6H PRN PO PAIN AND OR ELEVATED TEMP Last administered on 08/11/16 06:09; Admin Dose 650 MG; Start 08/07/16 at 20:00 Guaifenesin/ Dextromethorphan (Robitussin Dm Liquid Cup) 5 ml Q4H PRN PO Cough Last administered on 08/08/16 18:20; Admin Dose 5 ML; Start 08/08/16 at 10:30 Diltiazem HCl (Cardizem) 60 mg Q8 PO Last administered on 08/13/16t 14:16; Admin Dose 60 MG; Start 08/10/16 at 17:00; Stop 08/13/16 at 22:00 Diltiazem HCl (Cardizem Cd) 180 mg DAILY PO ; Start 08/14/16 at 09:00 JOHNATHAN LENNON Aug 13, 2016 15:07
[2016-08-14] VITALS (12 sets, daily range): BP systolic 115–151; BP diastolic 60–71; PULSE 70–92; RESP 18–20
[2016-08-14] MEDS: ALBUTEROL/IPRATROPIUM (NEB) 3 ML AMP HHN SCH ×6 (00:54→20:02)
[2016-08-14] MEDS: LEVOTHYROXINE 75 MCG TAB PO SCH (06:01)
[2016-08-14 06:45] LABS: HEMATOCRIT 39.5 % (37.0-47.0); HEMOGLOBIN 12.9 g/dl (12.0-16.0); LYMPHOCYTES # 0.9 10^3/ul (0.8-2.9); LYMPHOCYTES % 10.2 % (15.0-51.0); MEAN CORPUSCULAR HEMOGLOBIN 32.7 pg (29.0-33.0); MEAN CORPUSCULAR HGB CONC 32.7 g/dl (32.0-37.0); MEAN PLATELET VOLUME 8.5 fl (7.4-10.4); MONOCYTE # 0.5 10^3/ul (0.3-0.9); MONOCYTES % 5.1 % (0.0-11.0); NEUTROPHIL # 7.6 10^3/ul (1.6-7.5); NEUTROPHILS % 84.7 % (39.0-77.0); PLATELET COUNT 176 10^3/UL (140-440); RED BLOOD COUNT 3.95 10^6/ul (4.20-5.40); RED CELL DISTRIBUTION WIDTH 16.3 % (11.5-14.5)
[2016-08-14 06:47] LABS: CONDITION 1; LH ANALYZER COMMENTS 1
[2016-08-14 06:51] LABS: POTASSIUM 5.1 mmol/L (3.5-5.1)
[2016-08-14 06:54] LABS: CREATININE 0.81 mg/dl (0.44-1.00)
[2016-08-14 06:55] LABS: CALCIUM 8.1 mg/dl (8.4-10.2)
[2016-08-14] MEDS: ALENDRONATE 70 MG TAB PO SCH (08:13)
[2016-08-14] MEDS: FUROSEMIDE 20 MG TAB PO SCH (08:14)
[2016-08-14] MEDS: FAMOTIDINE 20 MG TAB PO SCH ×2 (08:14→21:07)
[2016-08-14] MEDS: APIXABAN 5 MG TABLET PO SCH ×2 (08:14→21:07)
[2016-08-14] MEDS: DILTIAZEM (CD) 180 MG CAP PO SCH (08:14)
--- NOTE | 2016-08-14 10:45 | PN ---
Date/Time of Note Date/Time of Note DATE: 08/14/16 TIME: 10:43 Assessment/Plan VTE Prophylaxis VTE Prophylaxis Intervention: other (Eliquis) Lines/Catheters [facility] Saline Lock Urinary Cath still in place: No Assessment/Plan Chief Complaint/Hosp Course Assessment and plan 1. Acute respiratory failure secondary to underlying COPD. Continue on bronchodilator. Continue on O2 supplementation titrate down as tolerated 2. CHF with diastolic dysfunction. Patient with echocardiogram with preserved ejection fraction. Continue on diuretic medication 3. Atrial fibrillation. Continue on diltiazem. Continue on anticoagulation. 4. Pulmonary hypertension. Patient noted with PASP of 44 mmHg. Continue O2 supplement 5. Essential hypertension. Continue on anti-hypertensives and adjust as needed 6. Hypothyroidism. Continue on Synthroid 7. Osteoporosis. Continue on bisphosphonates DVT prophylaxis: Eliquis GERD prophylaxis: H2 mayank Disposition and plan: Continue bronchodilators. Await clinical improvement of respiratory status. Await physical therapy follow-up. [facility]. Will follow up with case management Discussed plan of care with Dr. Nichole Problems: Subjective 24 Hr Interval Summary Free Text/Dictation Still noted with some wheezing. Still reports having some shortness of breath Exam/Review of Systems Vital Signs Vitals Vital Signs Date Time Temp Pulse Resp B/P Pulse Ox O2 Delivery O2 Flow Rate FiO2 08/14/16 09:21 88 20 98 Nasal Cannula 3.0 08/14/16 07:26 97.6 140/68 08/11/16 05:31 32 Intake and Output 08/13/16 08/13/16 08/14/16 15:00 23:00 07:00 Intake Total 1200 ml 300 ml Output Total 400 ml Balance 1200 ml -100 ml Exam General: No acute signs or symptoms of distress Eyes: pupils equal round, Anicteric sclera Neck: Supple nontender, no JVD Cardiac: S1, S2 auscultated, regular rhythm and rate Pulmonary: Diminished at lung bases GI: Abdomen soft nontender nondistended, bowel sounds active Extremities: No edema bilateral lower extremities Skin: Clean dry and intact Neurologic: Alert to person place and time and situation Results Result Diagram: 08/14/16 0545 08/14/16 0545 Results 24 hrs Laboratory Tests Test 08/14/16 05:45 Anion Gap 11 Basophils # 0.0 Basophils % 0.0 Blood Morphology Comment Blood Urea Nitrogen 21 H Calcium Level 8.1 L Carbon Dioxide Level 32 H Chloride Level 103 Creatinine 0.81 Eosinophils # 0.0 Eosinophils % 0.0 Glucose Level 113 Hematocrit 39.5 Hemoglobin 12.9 Lymphocytes # 0.9 Lymphocytes % 10.2 L Mean Corpuscular Hemoglobin 32.7 Mean Corpuscular Hemoglobin Concent 32.7 Mean Corpuscular Volume 100.0 Mean Platelet Volume 8.5 Monocytes # 0.5 Monocytes % 5.1 Neutrophils # 7.6 H Neutrophils % 84.7 H Nucleated Red Blood Cells # 0.0 Nucleated Red Blood Cells % 0.0 Platelet Count 176 Potassium Level 5.1 Red Blood Count 3.95 L Red Cell Distribution Width 16.3 H Sodium Level 141 White Blood Count 9.0 Medications Medications Current Medications Alendronate Sodium (Fosamax) 70 mg Tu@0730 PO Last administered on 08/14/16 08 :13; Admin Dose 70 MG; Start 08/07/16 at 07:30 Ondansetron HCl (Zofran Inj) 4 mg Q6H PRN IV NAUSEA AND/OR VOMITING; Start 08/06 at 21:00 Docusate Sodium (Colace) 250 mg DAILY PRN PO CONSTIPATION; Start 08/06/16 at 21: 00 Senna (Senokot) 2 tab QHS PRN PO CONSTIPATION Last administered on 08/12/16 05 :26; Admin Dose 2 TAB; Start 08/06/16 at 21:00 Famotidine (Pepcid) 10 mg BID PO Last administered on 08/14/16 08:14; Admin Dose 10 MG; Start 08/07/16 at 21:00 Apixaban (Eliquis) 5 mg BID PO Last administered on 08/14/16 08:14; Admin Dose 5 MG; Start 08/07/16 at 21:00 Furosemide (Lasix) 20 mg DAILY PO Last administered on 08/14/16 08:14; Admin Dose 20 MG; Start 08/08/16 at 09:00 Acetaminophen (Tylenol Tab) 650 mg Q6H PRN PO PAIN AND OR ELEVATED TEMP Last administered on 08/11/16 06:09; Admin Dose 650 MG; Start 08/07/16 at 20:00 Guaifenesin/ Dextromethorphan (Robitussin Dm Liquid Cup) 5 ml Q4H PRN PO Cough Last administered on 08/08/16 18:20; Admin Dose 5 ML; Start 08/08/16 at 10:30 Diltiazem HCl (Cardizem Cd) 180 mg DAILY PO Last administered on 08/14/16 08: 14; Admin Dose 180 MG; Start 08/14/16 at 09:00 Salmeterol Xinafoate/ Fluticasone (Advair 250/50 Diskus) 1 inh BID INH ; Start 08/14/16 at 10:30 JOHNATHAN LENNON Aug 14, 2016 10:45
[2016-08-14] MEDS: GUAIFENESIN LA 600 MG TABSR PO SCH ×2 (11:10→21:07)
[2016-08-14] MEDS: SALMETEROL/FLUTICASONE 250/50 INHA INH SCH ×2 (11:41→21:06)
--- NOTE | 2016-08-14 11:55 | CONS ---
Date/Time of Note Date/Time of Note DATE: 08/14/16 TIME: 11:52 Assessment/Plan Assessment/Plan Additional Assessment/Plan Assessment and recommendations; 1. Patient admitted with severe COPD exacerbation currently doing well. Taper down to 20 mg prednisone daily. 2. Chronic atrial fibrillation with controlled rate. 3. Hypothyroidism. Continue current treatment. Patient will be discharged home. Maintained on prednisone 10 mg a day at least for a week to be tapered down on outpatient basis. As outlined earlier, the patient could potentially benefit from addition of Advair or Dulera to be used on a regular basis in conjunction with DuoNeb nebulizer at home to be used at least 3 times daily. Consultation Date/Type/Reason Admit Date/Time Aug 06, 2016 at 20:44 Initial Consult Date 08/08/16 Type of Consultation: Pulmonary 24 HR Interval Summary Free Text/Dictation Patient condition is stable. She is completely awake alert. Complains of scant cough. Denies any sputum production. Denies any chest pain, fever, chills. General examination; elderly lady, currently in no distress awake and alert. Exam/Review of Systems Vital Signs Vitals Vital Signs Date Time Temp Pulse Resp B/P Pulse Ox O2 Delivery O2 Flow Rate FiO2 08/14/16 11:06 98.4 95 18 115/71 97 08/14/16 09:21 Nasal Cannula 3.0 08/11/16 05:31 32 Intake and Output 08/13/16 08/13/16 08/14/16 15:00 23:00 07:00 Intake Total 1200 ml 300 ml Output Total 400 ml Balance 1200 ml -100 ml Exam H EENT examination; supple neck, no JVD. No lymphadenopathy. No thyromegaly. Pharynx is clear. Patient has a right surgical pupil. Chest examination; mild expiratory wheezing bilaterally. S1-S2 audible, irregular rhythm. Abdomen examination; soft, nontender, nondistended. Bowel sounds audible. Next Extremity examination; no edema. FAMILY CONSULTANT examination; no focal deficit. Results Result Diagram: 08/14/16 0545 08/14/16 0545 Results 24 hrs Laboratory Tests Test 08/14/16 05:45 Anion Gap 11 Basophils # 0.0 Basophils % 0.0 Blood Morphology Comment Blood Urea Nitrogen 21 H Calcium Level 8.1 L Carbon Dioxide Level 32 H Chloride Level 103 Creatinine 0.81 Eosinophils # 0.0 Eosinophils % 0.0 Glucose Level 113 Hematocrit 39.5 Hemoglobin 12.9 Lymphocytes # 0.9 Lymphocytes % 10.2 L Mean Corpuscular Hemoglobin 32.7 Mean Corpuscular Hemoglobin Concent 32.7 Mean Corpuscular Volume 100.0 Mean Platelet Volume 8.5 Monocytes # 0.5 Monocytes % 5.1 Neutrophils # 7.6 H Neutrophils % 84.7 H Nucleated Red Blood Cells # 0.0 Nucleated Red Blood Cells % 0.0 Platelet Count 176 Potassium Level 5.1 Red Blood Count 3.95 L Red Cell Distribution Width 16.3 H Sodium Level 141 White Blood Count 9.0 Medications Medications Current Medications Alendronate Sodium (Fosamax) 70 mg Tu@0730 PO Last administered on 08/14/16 08 :13; Admin Dose 70 MG; Start 08/07/16 at 07:30 Ondansetron HCl (Zofran Inj) 4 mg Q6H PRN IV NAUSEA AND/OR VOMITING; Start 08/06 at 21:00 Docusate Sodium (Colace) 250 mg DAILY PRN PO CONSTIPATION; Start 08/06/16 at 21: 00 Senna (Senokot) 2 tab QHS PRN PO CONSTIPATION Last administered on 08/12/16 05 :26; Admin Dose 2 TAB; Start 08/06/16 at 21:00 Famotidine (Pepcid) 10 mg BID PO Last administered on 08/14/16 08:14; Admin Dose 10 MG; Start 08/07/16 at 21:00 Apixaban (Eliquis) 5 mg BID PO Last administered on 08/14/16 08:14; Admin Dose 5 MG; Start 08/07/16 at 21:00 Furosemide (Lasix) 20 mg DAILY PO Last administered on 08/14/16 08:14; Admin Dose 20 MG; Start 08/08/16 at 09:00 Acetaminophen (Tylenol Tab) 650 mg Q6H PRN PO PAIN AND OR ELEVATED TEMP Last administered on 08/11/16 06:09; Admin Dose 650 MG; Start 08/07/16 at 20:00 Guaifenesin/ Dextromethorphan (Robitussin Dm Liquid Cup) 5 ml Q4H PRN PO Cough Last administered on 08/08/16 18:20; Admin Dose 5 ML; Start 08/08/16 at 10:30 Diltiazem HCl (Cardizem Cd) 180 mg DAILY PO Last administered on 08/14/16 08: 14; Admin Dose 180 MG; Start 08/14/16 at 09:00 Salmeterol Xinafoate/ Fluticasone (Advair 250/50 Diskus) 1 inh BID INH Last administered on 08/14/16 11:41; Admin Dose 1 INH; Start 08/14/16 at 10:30 Guaifenesin (Mucinex) 600 mg BID PO Last administered on 08/14/16 11:10; Admin Dose 600 MG; Start 08/14/16 at 11:00 RADHA JONES Aug 14, 2016 11:55
--- NOTE | 2016-08-14 13:38 | CONS ---
Date/Time of Note Date/Time of Note DATE: 08/14/16 TIME: 13:37 Assessment/Plan Assessment/Plan Additional Assessment/Plan Shortness of breath likely secondary to COPD exacerbation Mild acute decompensated diastolic congestive heart failure Preserved ejection fraction Atrial fibrillation with rapid ventricular rates, improve -Heart rate remained stable on current dose of Cardizem. Would continue with anticoagulation. Consultation Date/Type/Reason Admit Date/Time Aug 06, 2016 at 20:44 Initial Consult Date 08/08/16 Type of Consultation: cv 24 HR Interval Summary Free Text/Dictation Patient with improvement in shortness of breath. Denies palpitations Exam/Review of Systems Vital Signs Vitals Vital Signs Date Time Temp Pulse Resp B/P Pulse Ox O2 Delivery O2 Flow Rate FiO2 08/14/16 13:28 72 20 97 Nasal Cannula 3.0 08/14/16 11:06 98.4 115/71 08/11/16 05:31 32 Intake and Output 08/13/16 08/13/16 08/14/16 15:00 23:00 07:00 Intake Total 1200 ml 300 ml Output Total 400 ml Balance 1200 ml -100 ml Exam No apparent distress Constitutional: alert, obese, oriented Head: normocephalic Neck: supple Respiratory: other (Coarse breath sounds bilaterally with minimal expiratory wheezing) Cardiovascular: irregular rhythm, other (S1-S2 heard) Gastrointestinal: bowel sounds, non-tender, soft Extremities: edema (Trace) Results Result Diagram: 08/14/16 0545 08/14/16 0545 Results 24 hrs Laboratory Tests Test 08/14/16 05:45 Anion Gap 11 Basophils # 0.0 Basophils % 0.0 Blood Morphology Comment Blood Urea Nitrogen 21 H Calcium Level 8.1 L Carbon Dioxide Level 32 H Chloride Level 103 Creatinine 0.81 Eosinophils # 0.0 Eosinophils % 0.0 Glucose Level 113 Hematocrit 39.5 Hemoglobin 12.9 Lymphocytes # 0.9 Lymphocytes % 10.2 L Mean Corpuscular Hemoglobin 32.7 Mean Corpuscular Hemoglobin Concent 32.7 Mean Corpuscular Volume 100.0 Mean Platelet Volume 8.5 Monocytes # 0.5 Monocytes % 5.1 Neutrophils # 7.6 H Neutrophils % 84.7 H Nucleated Red Blood Cells # 0.0 Nucleated Red Blood Cells % 0.0 Platelet Count 176 Potassium Level 5.1 Red Blood Count 3.95 L Red Cell Distribution Width 16.3 H Sodium Level 141 White Blood Count 9.0 Medications Medications Current Medications Alendronate Sodium (Fosamax) 70 mg Tu@0730 PO Last administered on 08/14/16 08 :13; Admin Dose 70 MG; Start 08/07/16 at 07:30 Ondansetron HCl (Zofran Inj) 4 mg Q6H PRN IV NAUSEA AND/OR VOMITING; Start 08/06 at 21:00 Docusate Sodium (Colace) 250 mg DAILY PRN PO CONSTIPATION; Start 08/06/16 at 21: 00 Senna (Senokot) 2 tab QHS PRN PO CONSTIPATION Last administered on 08/12/16 05 :26; Admin Dose 2 TAB; Start 08/06/16 at 21:00 Famotidine (Pepcid) 10 mg BID PO Last administered on 08/14/16 08:14; Admin Dose 10 MG; Start 08/07/16 at 21:00 Apixaban (Eliquis) 5 mg BID PO Last administered on 08/14/16 08:14; Admin Dose 5 MG; Start 08/07/16 at 21:00 Furosemide (Lasix) 20 mg DAILY PO Last administered on 08/14/16 08:14; Admin Dose 20 MG; Start 08/08/16 at 09:00 Acetaminophen (Tylenol Tab) 650 mg Q6H PRN PO PAIN AND OR ELEVATED TEMP Last administered on 08/11/16 06:09; Admin Dose 650 MG; Start 08/07/16 at 20:00 Guaifenesin/ Dextromethorphan (Robitussin Dm Liquid Cup) 5 ml Q4H PRN PO Cough Last administered on 08/08/16 18:20; Admin Dose 5 ML; Start 08/08/16 at 10:30 Diltiazem HCl (Cardizem Cd) 180 mg DAILY PO Last administered on 08/14/16 08: 14; Admin Dose 180 MG; Start 08/14/16 at 09:00 Salmeterol Xinafoate/ Fluticasone (Advair 250/50 Diskus) 1 inh BID INH Last administered on 08/14/16 11:41; Admin Dose 1 INH; Start 08/14/16 at 10:30 Guaifenesin (Mucinex) 600 mg BID PO Last administered on 08/14/16 11:10; Admin Dose 600 MG; Start 08/14/16 at 11:00 Paul Mora DO Aug 14, 2016 13:38
[2016-08-15] VITALS (11 sets, daily range): BP systolic 93–141; BP diastolic 52–75; PULSE 74–100; RESP 16–20
[2016-08-15] MEDS: ALBUTEROL/IPRATROPIUM (NEB) 3 ML AMP HHN SCH ×6 (01:04→20:52)
[2016-08-15] MEDS: LEVOTHYROXINE 75 MCG TAB PO SCH (06:30)
[2016-08-15 06:51] LABS: BASOPHILS % 0.2 % (0.0-2.0); EOSINOPHILS # 0.1 10^3/ul (0.0-0.5); EOSINOPHILS % 0.8 % (0.0-7.0); HEMATOCRIT 40.8 % (37.0-47.0); HEMOGLOBIN 13.3 g/dl (12.0-16.0); LYMPHOCYTES # 2.1 10^3/ul (0.8-2.9); LYMPHOCYTES % 21.9 % (15.0-51.0); MEAN CORPUSCULAR HEMOGLOBIN 32.7 pg (29.0-33.0); MEAN CORPUSCULAR HGB CONC 32.6 g/dl (32.0-37.0); MEAN CORPUSCULAR VOLUME 100.1 fl (82.0-101.0); MEAN PLATELET VOLUME 8.2 fl (7.4-10.4); MONOCYTE # 0.9 10^3/ul (0.3-0.9); MONOCYTES % 9.1 % (0.0-11.0); NEUTROPHIL # 6.7 10^3/ul (1.6-7.5); PLATELET COUNT 174 10^3/UL (140-440); RED BLOOD COUNT 4.07 10^6/ul (4.20-5.40); RED CELL DISTRIBUTION WIDTH 16.2 % (11.5-14.5); UNCORRECTED WBC 9.8 10^3/ul (4.8-10.8); WHITE BLOOD COUNT 9.8 10^3/ul (4.8-10.8)
[2016-08-15 06:55] LABS: POTASSIUM 4.6 mmol/L (3.5-5.1)
[2016-08-15 06:57] LABS: CREATININE 1.05 mg/dl (0.44-1.00)
[2016-08-15 06:58] LABS: CALCIUM 7.8 mg/dl (8.4-10.2)
[2016-08-15 07:08] LABS: CONDITION 1; LH ANALYZER COMMENTS 1
[2016-08-15] MEDS: FAMOTIDINE 20 MG TAB PO SCH ×2 (08:24→21:26)
[2016-08-15] MEDS: SALMETEROL/FLUTICASONE 250/50 INHA INH SCH ×2 (08:24→21:27)
[2016-08-15] MEDS: DILTIAZEM (CD) 180 MG CAP PO SCH (08:25)
[2016-08-15] MEDS: GUAIFENESIN LA 600 MG TABSR PO SCH ×2 (08:25→21:26)
[2016-08-15] MEDS: FUROSEMIDE 20 MG TAB PO SCH (08:25)
[2016-08-15] MEDS: APIXABAN 5 MG TABLET PO SCH ×2 (08:25→21:26)
[2016-08-15] MEDS: SENNA TAB PO PRN (11:30)
[2016-08-15] MEDS: DOCUSATE SODIUM 250 MG CAP PO PRN (11:30)
--- NOTE | 2016-08-15 12:32 | CONS ---
Date/Time of Note Date/Time of Note DATE: 08/15/16 TIME: 12:30 Assessment/Plan Assessment/Plan Additional Assessment/Plan Assessment and recommendations; 1. Patient admitted with severe asthma exacerbation with acute bronchitis with significant clinical improvement. Off systemic steroids. 2. Chronic atrial fibrillation with rate which is fairly well controlled. Continue current treatment. Consultation Date/Type/Reason Admit Date/Time Aug 06, 2016 at 20:44 Initial Consult Date 08/08/16 Type of Consultation: Pulmonary 24 HR Interval Summary Free Text/Dictation Patient condition is stable. Denies any shortness of breath, any wheezing. Complains of occasional cough. Denies any sputum production. General examination; elderly lady, currently in no distress awake and alert. Sitting in a chair by bedside. Exam/Review of Systems Vital Signs Vitals Vital Signs Date Time Temp Pulse Resp B/P Pulse Ox O2 Delivery O2 Flow Rate FiO2 08/15/16 12:13 100 08/15/16 11:20 98.0 20 93/52 97 08/15/16 09:50 1.0 08/15/16 09:50 Nasal Cannula 08/14/16 17:03 21 Intake and Output 08/14/16 08/14/16 08/15/16 15:00 23:00 07:00 Intake Total 600 ml 300 ml Balance 600 ml 300 ml Exam H EENT examination; supple neck, no JVD. No lymphadenopathy. Pharynx is clear. Patient has a few remaining teeth which appear carious. There is a right intraocular lens implant with a surgical pupil. There is a left cataract present. Chest examination; diminished but clear breath sounds bilaterally no added sounds. S1-S2 audible no murmurs. Irregular rhythm. Abdomen examination; soft, nontender. Bowel sounds audible. Next Extremity examination; no peripheral edema. Patient does have multiple ecchymosis involving all 4 extremities. INSTRUCTIONAL AIDE examination; no focal deficit. Results Result Diagram: 08/15/16 0550 08/15/16 0555 Results 24 hrs Laboratory Tests Test 08/15/16 05:50 08/15/16 05:55 Basophils # 0.0 Basophils % 0.2 Blood Morphology Comment Eosinophils # 0.1 Eosinophils % 0.8 Hematocrit 40.8 Hemoglobin 13.3 Lymphocytes # 2.1 Lymphocytes % 21.9 Mean Corpuscular Hemoglobin 32.7 Mean Corpuscular Hemoglobin Concent 32.6 Mean Corpuscular Volume 100.1 Mean Platelet Volume 8.2 Monocytes # 0.9 Monocytes % 9.1 Neutrophils # 6.7 Neutrophils % 68.0 Nucleated Red Blood Cells # 0.0 Nucleated Red Blood Cells % 0.0 Platelet Count 174 Red Blood Count 4.07 L Red Cell Distribution Width 16.2 H White Blood Count 9.8 Anion Gap 9 Blood Urea Nitrogen 20 Calcium Level 7.8 L Carbon Dioxide Level 34 H Chloride Level 104 Creatinine 1.05 H Glucose Level 81 Potassium Level 4.6 Sodium Level 142 Medications Medications Current Medications Alendronate Sodium (Fosamax) 70 mg Tu@0730 PO Last administered on 08/14/16 08 :13; Admin Dose 70 MG; Start 08/07/16 at 07:30 Ondansetron HCl (Zofran Inj) 4 mg Q6H PRN IV NAUSEA AND/OR VOMITING; Start 08/06 at 21:00 Docusate Sodium (Colace) 250 mg DAILY PRN PO CONSTIPATION Last administered on 08/15/16 11:30; Admin Dose 250 MG; Start 08/06/16 at 21:00 Senna (Senokot) 2 tab QHS PRN PO CONSTIPATION Last administered on 08/15/16 11 :30; Admin Dose 2 TAB; Start 08/06/16 at 21:00 Famotidine (Pepcid) 10 mg BID PO Last administered on 08/15/16 08:24; Admin Dose 10 MG; Start 08/07/16 at 21:00 Apixaban (Eliquis) 5 mg BID PO Last administered on 08/15/16 08:25; Admin Dose 5 MG; Start 08/07/16 at 21:00 Furosemide (Lasix) 20 mg DAILY PO Last administered on 08/15/16 08:25; Admin Dose 20 MG; Start 08/08/16 at 09:00 Acetaminophen (Tylenol Tab) 650 mg Q6H PRN PO PAIN AND OR ELEVATED TEMP Last administered on 08/11/16 06:09; Admin Dose 650 MG; Start 08/07/16 at 20:00 Guaifenesin/ Dextromethorphan (Robitussin Dm Liquid Cup) 5 ml Q4H PRN PO Cough Last administered on 08/08/16 18:20; Admin Dose 5 ML; Start 08/08/16 at 10:30 Diltiazem HCl (Cardizem Cd) 180 mg DAILY PO Last administered on 08/15/16 08: 25; Admin Dose 180 MG; Start 08/14/16 at 09:00 Salmeterol Xinafoate/ Fluticasone (Advair 250/50 Diskus) 1 inh BID INH Last administered on 08/15/16 08:24; Admin Dose 1 INH; Start 08/14/16 at 10:30 Guaifenesin (Mucinex) 600 mg BID PO Last administered on 08/15/16 08:25; Admin Dose 600 MG; Start 08/14/16 at 11:00 RADHA JONES Aug 15, 2016 12:32
--- NOTE | 2016-08-15 14:11 | CONS ---
Date/Time of Note Date/Time of Note DATE: 08/15/16 TIME: 14:09 Assessment/Plan Assessment/Plan Additional Assessment/Plan Shortness of breath likely secondary to COPD exacerbation Mild acute decompensated diastolic congestive heart failure Preserved ejection fraction Atrial fibrillation with rapid ventricular rates, improved -Heart rate remained stable. We decreased dose of Cardizem. Blood pressure on the lower end this morning. Will DC Lasix. Continue anticoagulation if no contraindication. Consultation Date/Type/Reason Admit Date/Time Aug 06, 2016 at 20:44 Initial Consult Date 08/08/16 Type of Consultation: cv 24 HR Interval Summary Free Text/Dictation Shortness of breath is better, palpitations have resolved. Denies chest pain Exam/Review of Systems Vital Signs Vitals Vital Signs Date Time Temp Pulse Resp B/P Pulse Ox O2 Delivery O2 Flow Rate FiO2 08/15/16 12:13 100 08/15/16 11:20 98.0 20 93/52 97 08/15/16 09:50 1.0 08/15/16 09:50 Nasal Cannula 08/14/16 17:03 21 Intake and Output 08/14/16 08/14/16 08/15/16 15:00 23:00 07:00 Intake Total 600 ml 300 ml Balance 600 ml 300 ml Exam Sitting in chair Constitutional: alert, obese, oriented Head: normocephalic Neck: supple Respiratory: other (Coarse breath sounds bilaterally, no wheezing) Cardiovascular: irregular rhythm, other (S1-S2 heard) Gastrointestinal: bowel sounds, non-tender, soft Extremities: edema (Trace) Results Result Diagram: 08/15/16 0550 08/15/16 0555 Results 24 hrs Laboratory Tests Test 08/15/16 05:50 08/15/16 05:55 Basophils # 0.0 Basophils % 0.2 Blood Morphology Comment Eosinophils # 0.1 Eosinophils % 0.8 Hematocrit 40.8 Hemoglobin 13.3 Lymphocytes # 2.1 Lymphocytes % 21.9 Mean Corpuscular Hemoglobin 32.7 Mean Corpuscular Hemoglobin Concent 32.6 Mean Corpuscular Volume 100.1 Mean Platelet Volume 8.2 Monocytes # 0.9 Monocytes % 9.1 Neutrophils # 6.7 Neutrophils % 68.0 Nucleated Red Blood Cells # 0.0 Nucleated Red Blood Cells % 0.0 Platelet Count 174 Red Blood Count 4.07 L Red Cell Distribution Width 16.2 H White Blood Count 9.8 Anion Gap 9 Blood Urea Nitrogen 20 Calcium Level 7.8 L Carbon Dioxide Level 34 H Chloride Level 104 Creatinine 1.05 H Glucose Level 81 Potassium Level 4.6 Sodium Level 142 Medications Medications Current Medications Alendronate Sodium (Fosamax) 70 mg Tu@0730 PO Last administered on 08/14/16 08 :13; Admin Dose 70 MG; Start 08/07/16 at 07:30 Ondansetron HCl (Zofran Inj) 4 mg Q6H PRN IV NAUSEA AND/OR VOMITING; Start 08/06 at 21:00 Docusate Sodium (Colace) 250 mg DAILY PRN PO CONSTIPATION Last administered on 08/15/16 11:30; Admin Dose 250 MG; Start 08/06/16 at 21:00 Senna (Senokot) 2 tab QHS PRN PO CONSTIPATION Last administered on 08/15/16 11 :30; Admin Dose 2 TAB; Start 08/06/16 at 21:00 Famotidine (Pepcid) 10 mg BID PO Last administered on 08/15/16 08:24; Admin Dose 10 MG; Start 08/07/16 at 21:00 Apixaban (Eliquis) 5 mg BID PO Last administered on 08/15/16 08:25; Admin Dose 5 MG; Start 08/07/16 at 21:00 Acetaminophen (Tylenol Tab) 650 mg Q6H PRN PO PAIN AND OR ELEVATED TEMP Last administered on 08/11/16 06:09; Admin Dose 650 MG; Start 08/07/16 at 20:00 Guaifenesin/ Dextromethorphan (Robitussin Dm Liquid Cup) 5 ml Q4H PRN PO Cough Last administered on 08/08/16 18:20; Admin Dose 5 ML; Start 08/08/16 at 10:30 Salmeterol Xinafoate/ Fluticasone (Advair 250/50 Diskus) 1 inh BID INH Last administered on 08/15/16 08:24; Admin Dose 1 INH; Start 08/14/16 at 10:30 Guaifenesin (Mucinex) 600 mg BID PO Last administered on 08/15/16 08:25; Admin Dose 600 MG; Start 08/14/16 at 11:00 Diltiazem HCl (Cardizem Cd) 120 mg DAILY PO ; Start 08/16/16 at 09:00; Status UNV Paul Mora DO Aug 15, 2016 14:11
[2016-08-15] MEDS ORDERED: morphine 2 MG INJ IV PRN (15:30)
[2016-08-15] MEDS: HYDROCODONE/APAP (5/325) TAB PO PRN (15:38)
--- NOTE | 2016-08-15 16:21 | PN ---
Date/Time of Note Date/Time of Note DATE: 08/15/16 TIME: 16:20 Assessment/Plan VTE Prophylaxis VTE Prophylaxis Intervention: other (Eliquis) Lines/Catheters IV [facility] Type [facility]from [facility] Urinary Cath still in place: No Assessment/Plan Chief Complaint/Hosp Course Assessment and plan 1. Acute respiratory failure secondary to underlying COPD. Continue on bronchodilator. Continue on O2 supplementation titrate down as tolerated 2. CHF with diastolic dysfunction. Patient with echocardiogram with preserved ejection fraction. Continue on diuretic medication 3. Atrial Fibrillation. Continue on diltiazem. Continue on anticoagulation. 4. Pulmonary hypertension. Patient noted with PASP of 44 mmHg. Continue O2 supplement 5. Essential hypertension. Continue on anti-hypertensives and adjust as needed 6. Hypothyroidism. Continue on Synthroid 7. Osteoporosis. Continue on bisphosphonates 8. Abdominal pain. Patient was reported abdominal pain on left abdominal quadrant. Etiology unknown. Check CT scan of the abdomen. Follow-up on urine cultures DVT prophylaxis: Eliquis GERD prophylaxis: H2 [place]ank Disposition and plan: Plan for [facility] facility placement versus home with home health services when ready for discharge. CT scan of the abdomen to evaluate for worsening abdominal pain. Follow-up on urine cultures. Discussed plan of care with Dr. Nichole Problems: Subjective 24 Hr Interval Summary Free Text/Dictation With worsening abdominal pain at this time Exam/Review of Systems Vital Signs Vitals Vital Signs Date Time Temp Pulse Resp B/P Pulse Ox O2 Delivery O2 Flow Rate FiO2 08/15/16 16:11 85 08/15/16 15:36 97.7 20 141/73 98 08/15/16 14:21 2.0 08/15/16 14:21 Nasal Cannula 08/14/16 17:03 21 Intake and Output 08/14/16 08/14/16 08/15/16 14:59 22:59 06:59 Intake Total 600 ml 300 ml Balance 600 ml 300 ml Exam General: No acute signs or symptoms of distress Eyes: pupils equal round, Anicteric sclera Neck: Supple nontender, no JVD Cardiac: S1, S2 auscultated, regular rhythm and rate Pulmonary: Diminished at lung bases GI: Abdomen soft nontender nondistended, bowel sounds active Extremities: No edema bilateral lower extremities Skin: Clean dry and intact Neurologic: Alert to person place and time and situation Results Result Diagram: 08/15/16 0550 08/15/16 0555 Results 24 hrs Laboratory Tests Test 08/15/16 05:50 08/15/16 05:55 Basophils # 0.0 Basophils % 0.2 Blood Morphology Comment Eosinophils # 0.1 Eosinophils % 0.8 Hematocrit 40.8 Hemoglobin 13.3 Lymphocytes # 2.1 Lymphocytes % 21.9 Mean Corpuscular Hemoglobin 32.7 Mean Corpuscular Hemoglobin Concent 32.6 Mean Corpuscular Volume 100.1 Mean Platelet Volume 8.2 Monocytes # 0.9 Monocytes % 9.1 Neutrophils # 6.7 Neutrophils % 68.0 Nucleated Red Blood Cells # 0.0 Nucleated Red Blood Cells % 0.0 Platelet Count 174 Red Blood Count 4.07 L Red Cell Distribution Width 16.2 H White Blood Count 9.8 Anion Gap 9 Blood Urea Nitrogen 20 Calcium Level 7.8 L Carbon Dioxide Level 34 H Chloride Level 104 Creatinine 1.05 H Glucose Level 81 Potassium Level 4.6 Sodium Level 142 Medications Medications Current Medications Alendronate Sodium (Fosamax) 70 mg Tu@0730 PO Last administered on 08/14/16 08 :13; Admin Dose 70 MG; Start 08/07/16 at 07:30 Ondansetron HCl (Zofran Inj) 4 mg Q6H PRN IV NAUSEA AND/OR VOMITING; Start 08/06 at 21:00 Docusate Sodium (Colace) 250 mg DAILY PRN PO CONSTIPATION Last administered on 08/15/16 11:30; Admin Dose 250 MG; Start 08/06/16 at 21:00 Senna (Senokot) 2 tab QHS PRN PO CONSTIPATION Last administered on 08/15/16 11 :30; Admin Dose 2 TAB; Start 08/06/16 at 21:00 Famotidine (Pepcid) 10 mg BID PO Last administered on 08/15/16 08:24; Admin Dose 10 MG; Start 08/07/16 at 21:00 Apixaban (Eliquis) 5 mg BID PO Last administered on 08/15/16 08:25; Admin Dose 5 MG; Start 08/07/16 at 21:00 Acetaminophen (Tylenol Tab) 650 mg Q6H PRN PO PAIN AND OR ELEVATED TEMP Last administered on 08/11/16 06:09; Admin Dose 650 MG; Start 08/07/16 at 20:00 Guaifenesin/ Dextromethorphan (Robitussin Dm Liquid Cup) 5 ml Q4H PRN PO Cough Last administered on 08/08/16 18:20; Admin Dose 5 ML; Start 08/08/16 at 10:30 Salmeterol Xinafoate/ Fluticasone (Advair 250/50 Diskus) 1 inh BID INH Last administered on 08/15/16 08:24; Admin Dose 1 INH; Start 08/14/16 at 10:30 Guaifenesin (Mucinex) 600 mg BID PO Last administered on 08/15/16 08:25; Admin Dose 600 MG; Start 08/14/16 at 11:00 Diltiazem HCl (Cardizem Cd) 120 mg DAILY PO ; Start 08/16/16 at 09:00 Morphine Sulfate (morphine) 2 mg Q4H PRN IV PAIN LEVEL 7-10; Start 08/15/16 at 15:30 Acetaminophen/ Hydrocodone Bitart ([place] (5/325)) 1 tab Q4H PRN PO PAIN LEVEL 4 -7 Last administered on 08/15/16 15:38; Admin Dose 1 TAB; Start 08/15/16 at 15: 30 JOHNATHAN LENNON Aug 15, 2016 16:21
[2016-08-15 17:02] LABS: ADD UMIC YES; URINE BILIRUBIN (Dip) NEGATIVE (NEGATIVE); URINE BLOOD (Dip) 2+ (NEGATIVE); URINE COLOR LT. YELLOW (YELLOW); URINE GLUCOSE (Dip) NEGATIVE (NEGATIVE); URINE KETONES (Dip) NEGATIVE (NEGATIVE); URINE LEUKOCYTE ESTERASE (Dip) 1+ (NEGATIVE); URINE NITRITE (Dip) NEGATIVE (NEGATIVE); URINE TOTAL PROTEIN (Dip) NEGATIVE (NEGATIVE); URINE UROBILINOGEN (Dip) 0.2 E.U./dL (0.1-1.0)
[2016-08-15 17:09] LABS: BACTERIA,URINE FEW
--- NOTE | 2016-08-15 19:46 | RADRPT ---
PROCEDURE: CT abdomen and pelvis without IV contrast. CLINICAL INDICATION: Abdominal pain TECHNIQUE: CT scan of the abdomen and pelvis without contrast was performed on the Aneumed volumetric [address] scanner. The patient was scanned without intravenous contrast. Coronal and sagittal refo rmatted images were obtained from the axial source images. The CTDI vol is 18.46 mGy and the DLP is 955.35 mGy-cm. COMPARISON: None. FINDINGS: CT abdomen: Small bilateral pleural effusions are seen with bibasilar consolidation. The heart size is moderatel y enlarged with multichamber enlargement and is without pericardial thickening or effusion. Aortic a nd coronary vascular calcifications are seen. Small hepatic cysts are seen in the right and left hepatic lobes. The liver is normal in size and r emainder of the density and is without focal mass or intrahepatic biliary dilatation. The spleen is normal in size and homogeneous in density. The stomach is grossly unremarkable. The pancreas as v isualized is normal. The gallbladder is distended with a gallstone identified. The adrenal glands a re symmetric and normal. The kidneys are small in size. A 5 mm nonobstructing stone in the lower p ole of the left kidney is seen. No obstructive uropathy or mass lesion is seen. The aorta is of normal in caliber. Atherosclerotic vascular disease is seen. There is no retroperito anjelica lymphadenopathy. The ivelisse hepatis region is clear. The large bowel is stool-filled. The sma ll and large bowel and mesentery, as visualized, are otherwise unremarkable. The normal appendix is identified. A small fat containing ventral hernia is seen. CT pelvis: The uterus is absent. The pelvic sidewalls and inguinal regions are clear. No pelvic mass, lymphad enopathy, or free fluid is seen. No acute inflammation is seen. The urinary bladder is within norm al limits. Diffuse osteopenia is seen. A compression fracture of the T12 vertebral body is seen which demonstr ates approximately 50-75% height loss with slight retropulsion. Mild height loss of the inferior en dplate of L2 is seen. No osteolytic or osteoblastic lesion is detected. IMPRESSION: 1. Distended gallbladder with cholelithiasis. Consider further evaluation with an ultrasound. 2. Small bilateral pleural effusions with bibasilar infiltrates. 3. Stool filled large bowel. 4. T12 compression fracture with approximately 50-75% height loss with slight retropulsion. In add ition, mild height loss of the L2 inferior endplate. 5. 5 mm nonobstructing left renal stone. RPTAT: HPNM Vaibhav Clemons, Physician Date Time Electronically viewed and signed by Vaibhav Clemons, Physician on 08/15/2016 19:46 /
[2016-08-16] VITALS (12 sets, daily range): BP systolic 98–134; BP diastolic 60–75; PULSE 78–91; RESP 16–20
[2016-08-16] MEDS: ALBUTEROL/IPRATROPIUM (NEB) 3 ML AMP HHN SCH ×5 (00:29→20:45)
[2016-08-16] MEDS: LEVOTHYROXINE 75 MCG TAB PO SCH (06:48)
[2016-08-16 07:29] LABS: BASOPHILS % 0.1 % (0.0-2.0); EOSINOPHILS # 0.3 10^3/ul (0.0-0.5); EOSINOPHILS % 2.9 % (0.0-7.0); HEMATOCRIT 40.3 % (37.0-47.0); HEMOGLOBIN 13.1 g/dl (12.0-16.0); LYMPHOCYTES # 1.5 10^3/ul (0.8-2.9); LYMPHOCYTES % 14.5 % (15.0-51.0); MEAN CORPUSCULAR HEMOGLOBIN 32.6 pg (29.0-33.0); MEAN CORPUSCULAR HGB CONC 32.4 g/dl (32.0-37.0); MEAN CORPUSCULAR VOLUME 100.8 fl (82.0-101.0); MEAN PLATELET VOLUME 8.2 fl (7.4-10.4); MONOCYTES % 9.8 % (0.0-11.0); NEUTROPHIL # 7.4 10^3/ul (1.6-7.5); NEUTROPHILS % 72.7 % (39.0-77.0); PLATELET COUNT 162 10^3/UL (140-440); RED CELL DISTRIBUTION WIDTH 16.3 % (11.5-14.5); UNCORRECTED WBC 10.1 10^3/ul (4.8-10.8); WHITE BLOOD COUNT 10.1 10^3/ul (4.8-10.8)
[2016-08-16 07:35] LABS: CONDITION 1; LH ANALYZER COMMENTS 1
[2016-08-16 07:53] LABS: POTASSIUM 4.3 mmol/L (3.5-5.1)
[2016-08-16 07:56] LABS: CREATININE 0.9 mg/dl (0.44-1.00)
[2016-08-16 07:57] LABS: CALCIUM 7.3 mg/dl (8.4-10.2)
[2016-08-16] MEDS: FAMOTIDINE 20 MG TAB PO SCH ×2 (08:46→21:09)
[2016-08-16] MEDS: GUAIFENESIN LA 600 MG TABSR PO SCH ×2 (08:47→21:08)
[2016-08-16] MEDS: APIXABAN 5 MG TABLET PO SCH ×2 (08:47→21:08)
[2016-08-16] MEDS: DILTIAZEM (CD) 120 MG CAP PO SCH (08:47)
[2016-08-16] MEDS: SALMETEROL/FLUTICASONE 250/50 INHA INH SCH ×2 (08:47→21:10)
[2016-08-16] MEDS ORDERED: BISACODYL 10 MG SUPP PR PRN (11:00)
--- NOTE | 2016-08-16 11:05 | PN ---
Date/Time of Note Date/Time of Note DATE: 08/16/16 TIME: 10:57 Assessment/Plan VTE Prophylaxis VTE Prophylaxis Intervention: other (eliquis) Lines/Catheters IV [facility]ter Type (from [facility]): Saline Lock Urinary Cath still in place: No Assessment/Plan Chief Complaint/Hosp Course Assessment and plan 1. Acute respiratory failure secondary to underlying COPD. Continue on bronchodilator. Continue on O2 supplementation titrate down as tolerated 2. CHF with diastolic dysfunction. Patient with echocardiogram with preserved ejection fraction. Continue on diuretic medication 3. Atrial Fibrillation. Continue on diltiazem. Continue on anticoagulation. 4. Pulmonary hypertension. Patient noted with PASP of 44 mmHg. Continue O2 supplement 5. Essential hypertension. Continue on anti-hypertensives and adjust as needed 6. Hypothyroidism. Continue on Synthroid 7. Osteoporosis. Continue on bisphosphonates 8. Abdominal pain. Per abdominal imaging: - Distended gallbladder with cholelithiasis. Consider further evaluation with an ultrasound. - Small bilateral pleural effusions with bibasilar infiltrates. - Stool filled large bowel. - 5 mm nonobstructing left renal stone. Will follow up gallbladder u.s. Will check lipase 9. - T12 compression fracture with approximately 50-75% height loss with slight retropulsion. Patient denies any back pain. Able to ambulate with PT and fww. Likely old fracture. Will monitor and get surgical consultation pending clinical course DVT prophylaxis: Eliquis GERD prophylaxis: H2 mayank Disposition and plan: Check abdominal ultrasound. Follow-up with lipase level. Laxatives added for constipation. Analgesics for abdominal pain Discussed plan of care with Dr. Nichole Problems: Subjective 24 Hr Interval Summary Free Text/Dictation Still having reports of left abdominal quadrant pain that radiates to the right side. Exam/Review of Systems Vital Signs Vitals Vital Signs Date Time Temp Pulse Resp B/P Pulse Ox O2 Delivery O2 Flow Rate FiO2 08/16/16 09:09 82 20 97 Nasal Cannula 2.0 08/16/16 08:04 97.5 132/75 08/14/16 17:03 21 Intake and Output 08/15/16 08/15/16 08/16/16 15:00 23:00 07:00 Intake Total 330 ml Output Total 300 ml Balance 30 ml Exam General: No acute signs or symptoms of distress Eyes: pupils equal round, Anicteric sclera Neck: Supple nontender, no JVD Cardiac: S1, S2 auscultated, regular rhythm and rate Pulmonary: Diminished at lung bases GI: Abdomen soft nontender nondistended, bowel sounds active Extremities: No edema bilateral lower extremities Skin: Clean dry and intact Neurologic: Alert to person place and time and situation Results Result Diagram: 08/16/16 0620 08/16/16 0620 Results 24 hrs Laboratory Tests Test 08/15/16 15:35 08/16/16 06:20 Urine Bacteria FEW Urine Bilirubin NEGATIVE Urine Clarity CLEAR Urine Color LT. YELLOW Urine Epithelial Cells MODERATE Urine Glucose NEGATIVE Urine Hemoglobin 2+ H Urine Ketones NEGATIVE Urine Leukocyte Esterase 1+ H Urine Microscopic RBC 10-25 Urine Microscopic WBC 5-10 Urine Nitrite NEGATIVE Urine Specific [place] 1.015 Urine Total Protein NEGATIVE Urine Urobilinogen 0.2 E.U./dL Urine pH 7.0 Anion Gap 8 Basophils # 0.0 Basophils % 0.1 Blood Morphology Comment Blood Urea Nitrogen 17 Calcium Level 7.3 L Carbon Dioxide Level 33 H Chloride Level 100 Creatinine 0.90 Eosinophils # 0.3 Eosinophils % 2.9 Glucose Level 81 Hematocrit 40.3 Hemoglobin 13.1 Lymphocytes # 1.5 Lymphocytes % 14.5 L Mean Corpuscular Hemoglobin 32.6 Mean Corpuscular Hemoglobin Concent 32.4 Mean Corpuscular Volume 100.8 Mean Platelet Volume 8.2 Monocytes # 1.0 H Monocytes % 9.8 Neutrophils # 7.4 Neutrophils % 72.7 Nucleated Red Blood Cells # 0.0 Nucleated Red Blood Cells % 0.0 Platelet Count 162 Potassium Level 4.3 Red Blood Count 4.00 L Red Cell Distribution Width 16.3 H Sodium Level 137 White Blood Count 10.1 Medications Medications Current Medications Alendronate Sodium (Fosamax) 70 mg Tu@0730 PO Last administered on 08/14/16 08 :13; Admin Dose 70 MG; Start 08/07/16 at 07:30 Ondansetron HCl (Zofran Inj) 4 mg Q6H PRN IV NAUSEA AND/OR VOMITING; Start 08/06 at 21:00 Docusate Sodium (Colace) 250 mg DAILY PRN PO CONSTIPATION Last administered on 08/15/16 11:30; Admin Dose 250 MG; Start 08/06/16 at 21:00 Senna (Senokot) 2 tab QHS PRN PO CONSTIPATION Last administered on 08/15/16 11 :30; Admin Dose 2 TAB; Start 08/06/16 at 21:00 Famotidine (Pepcid) 10 mg BID PO Last administered on 08/16/16 08:46; Admin Dose 10 MG; Start 08/07/16 at 21:00 Apixaban (Eliquis) 5 mg BID PO Last administered on 08/16/16 08:47; Admin Dose 5 MG; Start 08/07/16 at 21:00 Acetaminophen (Tylenol Tab) 650 mg Q6H PRN PO PAIN AND OR ELEVATED TEMP Last administered on 08/11/16 06:09; Admin Dose 650 MG; Start 08/07/16 at 20:00 Guaifenesin/ Dextromethorphan (Robitussin Dm Liquid Cup) 5 ml Q4H PRN PO Cough Last administered on 08/08/16 18:20; Admin Dose 5 ML; Start 08/08/16 at 10:30 Salmeterol Xinafoate/ Fluticasone (Advair 250/50 Diskus) 1 inh BID INH Last administered on 08/16/16 08:47; Admin Dose 1 INH; Start 08/14/16 at 10:30 Guaifenesin (Mucinex) 600 mg BID PO Last administered on 08/16/16 08:47; Admin Dose 600 MG; Start 08/14/16 at 11:00 Diltiazem HCl (Cardizem Cd) 120 mg DAILY PO Last administered on 08/16/16 08: 47; Admin Dose 120 MG; Start 08/16/16 at 09:00 Morphine Sulfate (morphine) 2 mg Q4H PRN IV PAIN LEVEL 7-10; Start 08/15/16 at 15:30 Acetaminophen/ Hydrocodone Bitart ([place] (5/325)) 1 tab Q4H PRN PO PAIN LEVEL 4 -7 Last administered on 08/15/16 15:38; Admin Dose 1 TAB; Start 08/15/16 at 15: 30 JOHNATHAN LENNON Aug 16, 2016 11:05
--- NOTE | 2016-08-16 13:10 | CONS ---
Date/Time of Note Date/Time of Note DATE: 08/16/16 TIME: 13:08 Assessment/Plan Assessment/Plan Additional Assessment/Plan Shortness of breath likely secondary to COPD exacerbation Mild acute decompensated diastolic congestive heart failure Preserved ejection fraction Atrial fibrillation with rapid ventricular rates, improved -Heart rate remained stable. Continue Cardizem. Continue anticoagulation if no contraindication. Patient undergoing abdominal pain workup. Consultation Date/Type/Reason Admit Date/Time Aug 06, 2016 at 20:44 Initial Consult Date 08/08/16 Type of Consultation: cv 24 HR Interval Summary Free Text/Dictation Shortness of breath has improved, denies palpitations. Complaining of abdominal pain Exam/Review of Systems Vital Signs Vitals Vital Signs Date Time Temp Pulse Resp B/P Pulse Ox O2 Delivery O2 Flow Rate FiO2 08/16/16 11:53 97.9 91 18 128/70 96 08/16/16 09:09 Nasal Cannula 2.0 08/14/16 17:03 21 Intake and Output 08/15/16 08/15/16 08/16/16 15:00 23:00 07:00 Intake Total 330 ml Output Total 300 ml Balance 30 ml Exam Sleeping but arousable, no apparent distress Head: normocephalic Neck: supple Respiratory: other (Coarse breath sounds bilaterally, no wheezing) Cardiovascular: irregular rhythm, other (S1-S2 heard) Gastrointestinal: bowel sounds, other (Discomfort with palpation, more so in the right upper quadrant), soft Extremities: other (No edema) Results Result Diagram: 08/16/16 0620 08/16/16 0620 Results 24 hrs Laboratory Tests Test 08/15/16 15:35 08/16/16 06:20 Urine Bacteria FEW Urine Bilirubin NEGATIVE Urine Clarity CLEAR Urine Color LT. YELLOW Urine Epithelial Cells MODERATE Urine Glucose NEGATIVE Urine Hemoglobin 2+ H Urine Ketones NEGATIVE Urine Leukocyte Esterase 1+ H Urine Microscopic RBC 10-25 Urine Microscopic WBC 5-10 Urine Nitrite NEGATIVE Urine Specific [place] 1.015 Urine Total Protein NEGATIVE Urine Urobilinogen 0.2 E.U./dL Urine pH 7.0 Anion Gap 8 Basophils # 0.0 Basophils % 0.1 Blood Morphology Comment Blood Urea Nitrogen 17 Calcium Level 7.3 L Carbon Dioxide Level 33 H Chloride Level 100 Creatinine 0.90 Eosinophils # 0.3 Eosinophils % 2.9 Glucose Level 81 Hematocrit 40.3 Hemoglobin 13.1 Lipase 182 Lymphocytes # 1.5 Lymphocytes % 14.5 L Mean Corpuscular Hemoglobin 32.6 Mean Corpuscular Hemoglobin Concent 32.4 Mean Corpuscular Volume 100.8 Mean Platelet Volume 8.2 Monocytes # 1.0 H Monocytes % 9.8 Neutrophils # 7.4 Neutrophils % 72.7 Nucleated Red Blood Cells # 0.0 Nucleated Red Blood Cells % 0.0 Platelet Count 162 Potassium Level 4.3 Red Blood Count 4.00 L Red Cell Distribution Width 16.3 H Sodium Level 137 White Blood Count 10.1 Medications Medications Current Medications Alendronate Sodium (Fosamax) 70 mg Tu@0730 PO Last administered on 08/14/16 08 :13; Admin Dose 70 MG; Start 08/07/16 at 07:30 Ondansetron HCl (Zofran Inj) 4 mg Q6H PRN IV NAUSEA AND/OR VOMITING; Start 08/06 at 21:00 Docusate Sodium (Colace) 250 mg DAILY PRN PO CONSTIPATION Last administered on 08/15/16 11:30; Admin Dose 250 MG; Start 08/06/16 at 21:00 Senna (Senokot) 2 tab QHS PRN PO CONSTIPATION Last administered on 08/15/16 11 :30; Admin Dose 2 TAB; Start 08/06/16 at 21:00 Famotidine (Pepcid) 10 mg BID PO Last administered on 08/16/16 08:46; Admin Dose 10 MG; Start 08/07/16 at 21:00 Apixaban (Eliquis) 5 mg BID PO Last administered on 08/16/16 08:47; Admin Dose 5 MG; Start 08/07/16 at 21:00 Acetaminophen (Tylenol Tab) 650 mg Q6H PRN PO PAIN AND OR ELEVATED TEMP Last administered on 08/11/16 06:09; Admin Dose 650 MG; Start 08/07/16 at 20:00 Guaifenesin/ Dextromethorphan (Robitussin Dm Liquid Cup) 5 ml Q4H PRN PO Cough Last administered on 08/08/16 18:20; Admin Dose 5 ML; Start 08/08/16 at 10:30 Salmeterol Xinafoate/ Fluticasone (Advair 250/50 Diskus) 1 inh BID INH Last administered on 08/16/16 08:47; Admin Dose 1 INH; Start 08/14/16 at 10:30 Guaifenesin (Mucinex) 600 mg BID PO Last administered on 08/16/16 08:47; Admin Dose 600 MG; Start 08/14/16 at 11:00 Diltiazem HCl (Cardizem Cd) 120 mg DAILY PO Last administered on 08/16/16 08: 47; Admin Dose 120 MG; Start 08/16/16 at 09:00 Morphine Sulfate (morphine) 2 mg Q4H PRN IV PAIN LEVEL 7-10; Start 08/15/16 at 15:30 Acetaminophen/ Hydrocodone Bitart ([place] (5/325)) 1 tab Q4H PRN PO PAIN LEVEL 4 -7 Last administered on 08/15/16 15:38; Admin Dose 1 TAB; Start 08/15/16 at 15: 30 Lactulose (Enulose) 20 gm Q6H PRN PO CONSTIPATION; Start 08/16/16 at 11:00 Polyethylene Glycol (Miralax) 17 gm DAILY PO ; Start 08/16/16 at 11:00 Bisacodyl (Dulcolax Supp) 10 mg DAILY PRN [place] CONSTIPATION; Start 08/16/16 at 11 :00 Paul Mora DO Aug 16, 2016 13:09
--- NOTE | 2016-08-16 16:14 | RADRPT ---
PROCEDURE: US Abdomen. CLINICAL INDICATION: abdominal pain TECHNIQUE: Multiple real-time images were acquired of the patient's right upper quadrant abdomen a nd retroperitoneum utilizing a high resolution transducer. COMPARISON: 08/15/16 FINDINGS: The study is limited due to patient body habitus. The liver demonstrates normal echogenicity. The liver is normal in size and no focal solid lesions are seen. The liver measures 15.5 cm in length. The portal vein is patent with normal direction of f low. No intrahepatic biliary dilatation is seen. The gallbladder is moderately distended. There are multiple calcified gallstones are identified wit hin the gallbladder. There is no pericholecystic fluid or gallbladder wall thickening. The common b ile duct measures 4 mm in maximal dimension. The pancreas is not well seen. No free fluid is identified. The right kidney is normal in size, and demonstrate normal echogenicity and cortical thickness. The right kidney measures 9.2 cm in long dimension. There is no evidence of hydronephrosis. There is a possible 5 mm stone in the right kidney. RPTAT: AA IMPRESSION: Limited study due to the patient's body habitus. Moderately distended gallbladder with multiple calcified stones. No evidence of gallbladder wall thi ckening or pericholecystic fluid. Possible right nephrolithiasis. .Greg Alvarado MD, MD Date Time Electronically viewed and signed by .Greg Alvarado MD, on 08/16/2016 16:14 .S/
[2016-08-16] MEDS: LACTULOSE 30ML CUP PO PRN (17:30)
[2016-08-16] MEDS: POLYETHYLENE GLYCOL 17 GM PACKET PO SCH (17:30)
[2016-08-16] MEDS: SENNA TAB PO PRN (21:08)
[2016-08-16] MEDS: DOCUSATE SODIUM 250 MG CAP PO PRN (21:09)
[2016-08-17] VITALS (12 sets, daily range): BP systolic 110–136; BP diastolic 55–78; PULSE 66–87; RESP 16–20
[2016-08-17] MEDS: ALBUTEROL/IPRATROPIUM (NEB) 3 ML AMP HHN SCH ×6 (00:41→21:55)
[2016-08-17] MEDS: LEVOTHYROXINE 75 MCG TAB PO SCH (06:11)
[2016-08-17 08:17] LABS: EOSINOPHILS # 0.3 10^3/ul (0.0-0.5); EOSINOPHILS % 2.4 % (0.0-7.0); HEMATOCRIT 39.3 % (37.0-47.0); HEMOGLOBIN 12.9 g/dl (12.0-16.0); LYMPHOCYTES # 1.3 10^3/ul (0.8-2.9); LYMPHOCYTES % 11.2 % (15.0-51.0); MEAN CORPUSCULAR HEMOGLOBIN 32.9 pg (29.0-33.0); MEAN CORPUSCULAR HGB CONC 32.8 g/dl (32.0-37.0); MEAN CORPUSCULAR VOLUME 100.3 fl (82.0-101.0); MEAN PLATELET VOLUME 8.4 fl (7.4-10.4); MONOCYTE # 1.1 10^3/ul (0.3-0.9); MONOCYTES % 9.7 % (0.0-11.0); NEUTROPHIL # 8.9 10^3/ul (1.6-7.5); NEUTROPHILS % 76.7 % (39.0-77.0); PLATELET COUNT 148 10^3/UL (140-440); RED BLOOD COUNT 3.92 10^6/ul (4.20-5.40); RED CELL DISTRIBUTION WIDTH 16.3 % (11.5-14.5); UNCORRECTED WBC 11.6 10^3/ul (4.8-10.8); WHITE BLOOD COUNT 11.6 10^3/ul (4.8-10.8)
[2016-08-17 08:22] LABS: POTASSIUM 3.7 mmol/L (3.5-5.1)
[2016-08-17 08:24] LABS: CREATININE 0.87 mg/dl (0.44-1.00)
[2016-08-17 08:25] LABS: CALCIUM 7.7 mg/dl (8.4-10.2)
[2016-08-17 08:28] LABS: CONDITION 1; LH ANALYZER COMMENTS 1
[2016-08-17] MEDS: APIXABAN 5 MG TABLET PO SCH ×2 (09:52→20:26)
[2016-08-17] MEDS: FAMOTIDINE 20 MG TAB PO SCH ×2 (09:52→20:27)
[2016-08-17] MEDS: GUAIFENESIN LA 600 MG TABSR PO SCH ×2 (09:52→20:27)
[2016-08-17] MEDS: DILTIAZEM (CD) 120 MG CAP PO SCH (09:53)
[2016-08-17] MEDS: LACTULOSE 30ML CUP PO PRN (09:53)
[2016-08-17] MEDS: POLYETHYLENE GLYCOL 17 GM PACKET PO SCH (09:53)
[2016-08-17] MEDS: SALMETEROL/FLUTICASONE 250/50 INHA INH SCH ×2 (10:03→20:27)
[2016-08-17] MEDS: HYDROCODONE/APAP (5/325) TAB PO PRN ×2 (10:25→21:09)
[2016-08-17 11:00] LABS: ALBUMIN 2.5 g/dl (3.3-4.9)
[2016-08-17 11:02] LABS: BILIRUBIN,INDIRECT 0.5 mg/dl (0-1.1); BILIRUBIN,TOTAL 0.5 mg/dl (0.2-1.3)
[2016-08-17 11:03] LABS: TOTAL PROTEIN 5.2 g/dl (6.1-8.1)
--- NOTE | 2016-08-17 12:22 | CONS ---
DATE OF ADMISSION: 08/06/2016 DATE OF CONSULTATION: 08/17/2016 TYPE OF CONSULTATION: Surgical consult REASON FOR CONSULTATION: Abdominal pain and gallstones. HISTORY OF PRESENT ILLNESS: The patient is a very frail 80-year-old female who was initially admitt ed for congestive heart failure, atrial fibrillation and pneumonia. Her pneumonia has resolved, as has her CHF, and her atrial fibrillation is in good control. The patient started to develop abdomin al pain in the last day or two, starting on the left extending to the mid abdomen. CT scan showed a distended gallbladder with stones. This was confirmed on abdominal ultrasound, which did not show pericholecystic fluid or gallbladder wall thickening. Of note is the fact that the patient was note d to have a nonobstructing left renal calculus. I have been asked to see the patient in regards to this new finding of gallstones associated with abdominal pain. OUTPATIENT MEDICATIONS: Well outlined in the chart. ALLERGIES: NONE. REVIEW OF SYSTEMS: HEAD, EARS, EYES, NOSE AND THROAT: Unremarkable. PULMONARY: History of congestive heart failure and pneumonia. CARDIAC atrial fibrillation, no tasha AK. ABDOMEN: As in the HPI. EXTREMITIES: Unremarkable. PHYSICAL EXAMINATION: GENERAL: The patient is a Greek speaking 80-year-old female who is in no acute distress. HEAD, EARS, EYES, NOSE AND THROAT: Within normal limits. LUNGS: Clear. ABDOMEN: Obese, soft and nontender. She does have left CVA tenderness. EXTREMITIES: Unremarkable. LABORATORY DATA: The patient's hematocrit is 39 with a white count of 11,600 without left shift. L FTs are relatively unremarkable. BUN, glucose and electrolytes today are within normal limits. INR is 1.13. IMAGING: As noted above. IMPRESSION: The patient's pain is predominantly left-sided. Her only finding on imaging is a left kidney stone. The finding of gallstones in this setting may be incidental. In any event, I have or dered a HIDA scan of the abdomen. PLAN: The patient should be empirically treated for her kidney stone. Further recommendations will be based on the patient's further workup and clinical course. I will follow with you. Dictated By: KARON BARRIOS/JOLANTA Conf#: [id number] DID#: [id number]
--- NOTE | 2016-08-17 12:51 | CONS ---
Date/Time of Note Date/Time of Note DATE: 08/17/16 TIME: 12:49 Assessment/Plan Assessment/Plan Additional Assessment/Plan Shortness of breath likely secondary to COPD exacerbation Mild acute decompensated diastolic congestive heart failure Preserved ejection fraction Atrial fibrillation with rapid ventricular rates, improved -Heart rates appear well-controlled, continue Cardizem, continue anticoagulation. Consultation Date/Type/Reason Admit Date/Time Aug 06, 2016 at 20:44 Initial Consult Date 08/08/16 Type of Consultation: cv 24 HR Interval Summary Free Text/Dictation Shortness of breath is better, denies palpitations, complaining of left flank pain Exam/Review of Systems Vital Signs Vitals Vital Signs Date Time Temp Pulse Resp B/P Pulse Ox O2 Delivery O2 Flow Rate FiO2 08/17/16 12:32 85 22 Nasal Cannula 2.0 08/17/16 11:06 98.2 113/73 96 08/14/16 17:03 21 Intake and Output 08/16/16 08/16/16 08/17/16 15:00 23:00 07:00 Intake Total 300 ml Balance 300 ml Exam Sitting in chair Constitutional: alert, obese, oriented Head: normocephalic Neck: supple Respiratory: other (Coarse breath sounds bilaterally, no wheezing) Cardiovascular: irregular rhythm, other (S1-S2 heard) Gastrointestinal: bowel sounds, soft, tender (With palpation left CVA region) Extremities: edema (Trace) Results Result Diagram: 08/17/16 0639 08/17/16 0639 Results 24 hrs Laboratory Tests Test 08/17/16 06:39 Alanine Aminotransferase (ALT/SGPT) 29 Albumin 2.5 L Alkaline Phosphatase 92 Anion Gap 9 Aspartate Amino Transf (AST/SGOT) 33 Basophils # 0.0 Basophils % 0.0 Blood Morphology Comment Blood Urea Nitrogen 16 Calcium Level 7.7 L Carbon Dioxide Level 31 Chloride Level 103 Creatinine 0.87 Direct Bilirubin 0.00 Eosinophils # 0.3 Eosinophils % 2.4 Glucose Level 79 Hematocrit 39.3 Hemoglobin 12.9 Indirect Bilirubin 0.5 Lymphocytes # 1.3 Lymphocytes % 11.2 L Mean Corpuscular Hemoglobin 32.9 Mean Corpuscular Hemoglobin Concent 32.8 Mean Corpuscular Volume 100.3 Mean Platelet Volume 8.4 Monocytes # 1.1 H Monocytes % 9.7 Neutrophils # 8.9 H Neutrophils % 76.7 Nucleated Red Blood Cells # 0.0 Nucleated Red Blood Cells % 0.0 Platelet Count 148 Potassium Level 3.7 Red Blood Count 3.92 L Red Cell Distribution Width 16.3 H Sodium Level 139 Total Bilirubin 0.5 Total Protein 5.2 L White Blood Count 11.6 H Medications Medications Current Medications Alendronate Sodium (Fosamax) 70 mg Tu@0730 PO Last administered on 08/14/16 08 :13; Admin Dose 70 MG; Start 08/07/16 at 07:30 Ondansetron HCl (Zofran Inj) 4 mg Q6H PRN IV NAUSEA AND/OR VOMITING; Start 08/06 at 21:00 Docusate Sodium (Colace) 250 mg DAILY PRN PO CONSTIPATION Last administered on 08/16/16 21:09; Admin Dose 250 MG; Start 08/06/16 at 21:00 Senna (Senokot) 2 tab QHS PRN PO CONSTIPATION Last administered on 08/16/16 21 :08; Admin Dose 2 TAB; Start 08/06/16 at 21:00 Famotidine (Pepcid) 10 mg BID PO Last administered on 08/17/16 09:52; Admin Dose 10 MG; Start 08/07/16 at 21:00 Apixaban (Eliquis) 5 mg BID PO Last administered on 08/17/16 09:52; Admin Dose 5 MG; Start 08/07/16 at 21:00 Acetaminophen (Tylenol Tab) 650 mg Q6H PRN PO PAIN AND OR ELEVATED TEMP Last administered on 08/11/16 06:09; Admin Dose 650 MG; Start 08/07/16 at 20:00 Guaifenesin/ Dextromethorphan (Robitussin Dm Liquid Cup) 5 ml Q4H PRN PO Cough Last administered on 08/08/16 18:20; Admin Dose 5 ML; Start 08/08/16 at 10:30 Salmeterol Xinafoate/ Fluticasone (Advair 250/50 Diskus) 1 inh BID INH Last administered on 08/17/16 10:03; Admin Dose 1 INH; Start 08/14/16 at 10:30 Guaifenesin (Mucinex) 600 mg BID PO Last administered on 08/17/16 09:52; Admin Dose 600 MG; Start 2/14/17 at 11:00 Diltiazem HCl (Cardizem Cd) 120 mg DAILY PO Last administered on 08/17/16 09: 53; Admin Dose 120 MG; Start 08/16/16 at 09:00 Morphine Sulfate (morphine) 2 mg Q4H PRN IV PAIN LEVEL 7-10; Start 08/15/16 at 15:30 Acetaminophen/ Hydrocodone Bitart ([place] (5/325)) 1 tab Q4H PRN PO PAIN LEVEL 4 -7 Last administered on 08/17/16 10:25; Admin Dose 1 TAB; Start 08/15/16 at 15: 30 Lactulose (Enulose) 20 gm Q6H PRN PO CONSTIPATION Last administered on 09:53; Admin Dose 20 GM; Start 08/16/16 at 11:00 Polyethylene Glycol (Miralax) 17 gm DAILY PO Last administered on 08/17/16 09: 53; Admin Dose 17 GM; Start 08/16/16 at 11:00 Bisacodyl (Dulcolax Supp) 10 mg DAILY PRN [place] CONSTIPATION; Start 08/16/16 at 11 :00 Paul Mora DO Aug 17, 2016 12:51
[2016-08-17] MEDS ORDERED: POTASSIUM CHLORIDE 20 MEQ POWDER FOR ORAL SOLN PO ONE (13:00)
--- NOTE | 2016-08-17 15:13 | PN ---
Date/Time of Note Date/Time of Note DATE: 08/17/16 TIME: 15:11 Assessment/Plan VTE Prophylaxis VTE Prophylaxis Intervention: other (Eliquis) Lines/Catheters IV C[facility] Type [facility]from [facility] Saline Lock Urinary Cath still in place: No Assessment/Plan Chief Complaint/Hosp Course Assessment and plan 1. Acute respiratory failure secondary to underlying COPD. Continue on bronchodilator. Continue on O2 supplementation titrate down as tolerated 2. CHF with diastolic dysfunction. Patient with echocardiogram with preserved ejection fraction. Continue on diuretic medication 3. Atrial Fibrillation. Continue on diltiazem. Continue on anticoagulation. 4. Pulmonary hypertension. Patient noted with PASP of 44 mmHg. Continue O2 supplement 5. Essential hypertension. Continue on anti-hypertensives and adjust as needed 6. Hypothyroidism. Continue on Synthroid 7. Osteoporosis. Continue on bisphosphonates 8. Abdominal pain. Per abdominal imaging: - Distended gallbladder with cholelithiasis. Consider further evaluation with an ultrasound. - Small bilateral pleural effusions with bibasilar infiltrates. - Stool filled large bowel. - 5 mm nonobstructing left renal stone. Discussed with Dr. Nichole, will get surgical consultation 9. - T12 compression fracture with approximately 50-75% height loss with slight retropulsion. Patient denies any back pain. Able to ambulate with PT and fww. Likely old fracture. Will monitor and get surgical consultation pending clinical course DVT prophylaxis: Eliquis GERD prophylaxis: H2 mayank Disposition and plan: Patient still with sharp left abdominal pain.Patient with gallbladder ultrasound showing moderately distended gallbladder with multiple calcified stones. Follow-up with HIDA scan Discussed plan of care with Dr. Nichole Problems: Subjective 24 Hr Interval Summary Free Text/Dictation Still reports having sharp left abdominal pain that radiates to her right side Exam/Review of Systems Vital Signs Vitals Vital Signs Date Time Temp Pulse Resp B/P Pulse Ox O2 Delivery O2 Flow Rate FiO2 08/17/16 12:32 85 22 Nasal Cannula 2.0 08/17/16 11:06 98.2 113/73 96 08/14/16 17:03 21 Intake and Output 08/16/16 08/16/16 08/17/16 15:00 23:00 07:00 Intake Total 300 ml Balance 300 ml Exam General: In mild distress. Reports having left abdominal pain Eyes: pupils equal round, Anicteric sclera Neck: Supple nontender, no JVD Cardiac: S1, S2 auscultated, regular rhythm and rate Pulmonary: Diminished at lung bases GI: Abdomen soft nontender nondistended, bowel sounds active Extremities: No edema bilateral lower extremities Skin: Clean dry and intact Neurologic: Alert to person place and time and situation Results Result Diagram: 08/17/1639 08/17/1639 Results 24 hrs Laboratory Tests Test 08/17/16 06:39 Alanine Aminotransferase (ALT/SGPT) 29 Albumin 2.5 L Alkaline Phosphatase 92 Anion Gap 9 Aspartate Amino Transf (AST/SGOT) 33 Basophils # 0.0 Basophils % 0.0 Blood Morphology Comment Blood Urea Nitrogen 16 Calcium Level 7.7 L Carbon Dioxide Level 31 Chloride Level 103 Creatinine 0.87 Direct Bilirubin 0.00 Eosinophils # 0.3 Eosinophils % 2.4 Glucose Level 79 Hematocrit 39.3 Hemoglobin 12.9 Indirect Bilirubin 0.5 Lymphocytes # 1.3 Lymphocytes % 11.2 L Mean Corpuscular Hemoglobin 32.9 Mean Corpuscular Hemoglobin Concent 32.8 Mean Corpuscular Volume 100.3 Mean Platelet Volume 8.4 Monocytes # 1.1 H Monocytes % 9.7 Neutrophils # 8.9 H Neutrophils % 76.7 Nucleated Red Blood Cells # 0.0 Nucleated Red Blood Cells % 0.0 Platelet Count 148 Potassium Level 3.7 Red Blood Count 3.92 L Red Cell Distribution Width 16.3 H Sodium Level 139 Total Bilirubin 0.5 Total Protein 5.2 L White Blood Count 11.6 H Medications Medications Current Medications Alendronate Sodium (Fosamax) 70 mg Tu@0730 PO Last administered on 08/14/16 08 :13; Admin Dose 70 MG; Start 08/07/16 at 07:30 Ondansetron HCl (Zofran Inj) 4 mg Q6H PRN IV NAUSEA AND/OR VOMITING; Start 08/06 at 21:00 Docusate Sodium (Colace) 250 mg DAILY PRN PO CONSTIPATION Last administered on 08/16/16 21:09; Admin Dose 250 MG; Start 08/06/16 at 21:00 Senna (Senokot) 2 tab QHS PRN PO CONSTIPATION Last administered on 08/16/16 21 :08; Admin Dose 2 TAB; Start 08/06/16 at 21:00 Famotidine (Pepcid) 10 mg BID PO Last administered on 08/17/16 09:52; Admin Dose 10 MG; Start 08/07/16 at 21:00 Apixaban (Eliquis) 5 mg BID PO Last administered on 08/17/16 09:52; Admin Dose 5 MG; Start 08/07/16 at 21:00 Acetaminophen (Tylenol Tab) 650 mg Q6H PRN PO PAIN AND OR ELEVATED TEMP Last administered on 08/11/16 06:09; Admin Dose 650 MG; Start 08/07/16 at 20:00 Guaifenesin/ Dextromethorphan (Robitussin Dm Liquid Cup) 5 ml Q4H PRN PO Cough Last administered on 08/08/16 18:20; Admin Dose 5 ML; Start 08/08/16 at 10:30 Salmeterol Xinafoate/ Fluticasone (Advair 250/50 Diskus) 1 inh BID INH Last administered on 08/17/16 10:03; Admin Dose 1 INH; Start 08/14/16 at 10:30 Guaifenesin (Mucinex) 600 mg BID PO Last administered on 08/17/16 09:52; Admin Dose 600 MG; Start 08/14/16 at 11:00 Diltiazem HCl (Cardizem Cd) 120 mg DAILY PO Last administered on 08/17/16 09: 53; Admin Dose 120 MG; Start 08/16/16 at 09:00 Morphine Sulfate (morphine) 2 mg Q4H PRN IV PAIN LEVEL 7-10; Start 08/15/16 at 15:30 Acetaminophen/ Hydrocodone Bitart ([place] (5/325)) 1 tab Q4H PRN PO PAIN LEVEL 4 -7 Last administered on 08/17/16 10:25; Admin Dose 1 TAB; Start 08/15/16 at 15: 30 Lactulose (Enulose) 20 gm Q6H PRN PO CONSTIPATION Last administered on 09:53; Admin Dose 20 GM; Start 08/16/16 at 11:00 Polyethylene Glycol (Miralax) 17 gm DAILY PO Last administered on 08/17/16 09: 53; Admin Dose 17 GM; Start 08/16/16 at 11:00 Bisacodyl (Dulcolax Supp) 10 mg DAILY PRN [place] CONSTIPATION; Start 08/16/16 at 11 :00 JOHNATHAN LENNON 17, 2017 15:13
[2016-08-17] MEDS: SOD CHLORIDE 0.9% 1,000 ML IV SCH (16:30)
[2016-08-18] VITALS (13 sets, daily range): BP systolic 115–154; BP diastolic 61–85; PULSE 75–100; RESP 18–20
[2016-08-18] MEDS: ALBUTEROL/IPRATROPIUM (NEB) 3 ML AMP HHN SCH ×6 (01:16→21:02)
[2016-08-18] MEDS: SOD CHLORIDE 0.9% 1,000 ML IV SCH ×2 (06:20→18:06)
[2016-08-18] MEDS: LEVOTHYROXINE 75 MCG TAB PO SCH (06:20)
[2016-08-18 06:26] LABS: BASOPHILS % 0.1 % (0.0-2.0); EOSINOPHILS # 0.3 10^3/ul (0.0-0.5); EOSINOPHILS % 3.4 % (0.0-7.0); HEMATOCRIT 36.4 % (37.0-47.0); HEMOGLOBIN 11.9 g/dl (12.0-16.0); LYMPHOCYTES # 1.2 10^3/ul (0.8-2.9); LYMPHOCYTES % 11.4 % (15.0-51.0); MEAN CORPUSCULAR HGB CONC 32.8 g/dl (32.0-37.0); MEAN CORPUSCULAR VOLUME 100.6 fl (82.0-101.0); MONOCYTES % 10.1 % (0.0-11.0); NEUTROPHIL # 7.7 10^3/ul (1.6-7.5); PLATELET COUNT 144 10^3/UL (140-440); RED BLOOD COUNT 3.62 10^6/ul (4.20-5.40); RED CELL DISTRIBUTION WIDTH 16.3 % (11.5-14.5); UNCORRECTED WBC 10.3 10^3/ul (4.8-10.8); WHITE BLOOD COUNT 10.3 10^3/ul (4.8-10.8)
[2016-08-18 06:33] LABS: CONDITION 1; LH ANALYZER COMMENTS 1
[2016-08-18 07:13] LABS: POTASSIUM 5.5 mmol/L (3.5-5.1)
[2016-08-18 07:16] LABS: CREATININE 0.86 mg/dl (0.44-1.00)
[2016-08-18 07:17] LABS: CALCIUM 7.5 mg/dl (8.4-10.2)
[2016-08-18] MEDS: DOCUSATE SODIUM 250 MG CAP PO PRN (08:17)
[2016-08-18] MEDS: SALMETEROL/FLUTICASONE 250/50 INHA INH SCH ×2 (08:17→21:57)
[2016-08-18] MEDS: GUAIFENESIN LA 600 MG TABSR PO SCH ×2 (08:17→20:50)
[2016-08-18] MEDS: FAMOTIDINE 20 MG TAB PO SCH ×2 (08:17→20:50)
[2016-08-18] MEDS: APIXABAN 5 MG TABLET PO SCH ×2 (08:18→20:50)
[2016-08-18] MEDS: DILTIAZEM (CD) 120 MG CAP PO SCH (08:18)
[2016-08-18] MEDS: LACTULOSE 30ML CUP PO PRN (08:18)
[2016-08-18] MEDS: POLYETHYLENE GLYCOL 17 GM PACKET PO SCH (09:00)
--- NOTE | 2016-08-18 10:29 | PN ---
Date/Time of Note Date/Time of Note DATE: 08/18/16 TIME: 10:26 Assessment/Plan VTE Prophylaxis VTE Prophylaxis Intervention: other (eliquis) Lines/Catheters IV [facility] (from [facility] Peripheral IV Urinary Cath still in place: No Assessment/Plan Chief Complaint/Hosp Course Assessment and plan 1. Acute respiratory failure secondary to underlying COPD. Continue on bronchodilator. Continue on O2 supplementation titrate down as tolerated 2. CHF with diastolic dysfunction. Patient with echocardiogram with preserved ejection fraction. Continue on diuretic medication 3. Atrial Fibrillation. Continue on diltiazem. Continue on anticoagulation. 4. Pulmonary hypertension. Patient noted with PASP of 44 mmHg. Continue O2 supplement 5. Essential hypertension. Continue on anti-hypertensives and adjust as needed 6. Hypothyroidism. Continue on Synthroid 7. Osteoporosis. Continue on bisphosphonates 8. Abdominal pain. Per abdominal imaging: - Distended gallbladder with cholelithiasis. Consider further evaluation with an ultrasound. - Small bilateral pleural effusions with bibasilar infiltrates. - Stool filled large bowel. - 5 mm nonobstructing left renal stone. surgeon consulted. plan for hida scan 9. - T12 compression fracture with approximately 50-75% height loss with slight retropulsion. Patient denies any back pain. Able to ambulate with PT and fww. Likely old fracture. Will monitor and get surgical consultation pending clinical course DVT prophylaxis: Eliquis GERD prophylaxis: H2 mayank Disposition and plan: HIDA scan result pending. discussed with patient will likely need snf placement. will get machine adjuster leader case trim to follow Discussed plan of care with Dr. Nichole Problems: Subjective 24 Hr Interval Summary Free Text/Dictation still with reports of abdominal pain, but little less Exam/Review of Systems Vital Signs Vitals Vital Signs Date Time Temp Pulse Resp B/P Pulse Ox O2 Delivery O2 Flow Rate FiO2 08/18/16 08:53 2.0 08/18/16 08:52 83 08/18/16 08:47 20 95 Nasal Cannula 28 08/18/16 07:00 97.8 135/85 Intake and Output 08/17/16 08/17/16 08/18/16 15:00 23:00 07:00 Intake Total 360 ml 240 ml 900 ml Balance 360 ml 240 ml 900 ml Exam General: no s/s of distress at this time Eyes: pupils equal round, Anicteric sclera Neck: Supple nontender, no JVD Cardiac: S1, S2 auscultated, regular rhythm and rate Pulmonary: Diminished at lung bases GI: Abdomen soft nontender nondistended, bowel sounds active Extremities: No edema bilateral lower extremities Skin: Clean dry and intact Neurologic: Alert to person place and time and situation Results Result Diagram: 08/18/1653208/18/16 0533 Results 24 hrs Laboratory Tests Test 08/18/16 05:33 Anion Gap 9 Basophils # 0.0 Basophils % 0.1 Blood Morphology Comment Blood Urea Nitrogen 16 Calcium Level 7.5 L Carbon Dioxide Level 31 Chloride Level 105 Creatinine 0.86 Eosinophils # 0.3 Eosinophils % 3.4 Glucose Level 92 Hematocrit 36.4 L Hemoglobin 11.9 L Lymphocytes # 1.2 Lymphocytes % 11.4 L Mean Corpuscular Hemoglobin 33.0 Mean Corpuscular Hemoglobin Concent 32.8 Mean Corpuscular Volume 100.6 Mean Platelet Volume 8.0 Monocytes # 1.0 H Monocytes % 10.1 Neutrophils # 7.7 H Neutrophils % 75.0 Nucleated Red Blood Cells # 0.0 Nucleated Red Blood Cells % 0.0 Platelet Count 144 Potassium Level 5.5 H Red Blood Count 3.62 L Red Cell Distribution Width 16.3 H Sodium Level 139 White Blood Count 10.3 Medications Medications Current Medications Alendronate Sodium (Fosamax) 70 mg Tu@0730 PO Last administered on 08/14/16 08 :13; Admin Dose 70 MG; Start 08/07/16 at 07:30 Ondansetron HCl (Zofran Inj) 4 mg Q6H PRN IV NAUSEA AND/OR VOMITING; Start 08/06 at 21:00 Docusate Sodium (Colace) 250 mg DAILY PRN PO CONSTIPATION Last administered on 08/18/16 08:17; Admin Dose 250 MG; Start 08/06/16 at 21:00 Senna (Senokot) 2 tab QHS PRN PO CONSTIPATION Last administered on 08/16/16 21 :08; Admin Dose 2 TAB; Start 08/06/16 at 21:00 Famotidine (Pepcid) 10 mg BID PO Last administered on 08/18/16 08:17; Admin Dose 10 MG; Start 08/07/16 at 21:00 Apixaban (Eliquis) 5 mg BID PO Last administered on 08/18/16 08:18; Admin Dose 5 MG; Start 08/07/16 at 21:00 Acetaminophen (Tylenol Tab) 650 mg Q6H PRN PO PAIN AND OR ELEVATED TEMP Last administered on 08/11/16 06:09; Admin Dose 650 MG; Start 08/07/16 at 20:00 Guaifenesin/ Dextromethorphan (Robitussin Dm Liquid Cup) 5 ml Q4H PRN PO Cough Last administered on 08/08/16 18:20; Admin Dose 5 ML; Start 08/08/16 at 10:30 Salmeterol Xinafoate/ Fluticasone (Advair 250/50 Diskus) 1 inh BID INH Last administered on 08/18/16 08:17; Admin Dose 1 INH; Start 08/14/16 at 10:30 Guaifenesin (Mucinex) 600 mg BID PO Last administered on 08/18/16 08:17; Admin Dose 600 MG; Start 08/14/16 at 11:00 Diltiazem HCl (Cardizem Cd) 120 mg DAILY PO Last administered on 08/18/16 08: 18; Admin Dose 120 MG; Start 08/16/16 at 09:00 Morphine Sulfate (morphine) 2 mg Q4H PRN IV PAIN LEVEL 7-10; Start 08/15/16 at 15:30 Acetaminophen/ Hydrocodone Bitart ([place] (5/325)) 1 tab Q4H PRN PO PAIN LEVEL 4 -7 Last administered on 08/17/16 21:09; Admin Dose 1 TAB; Start 08/15/16 at 15: 30 Lactulose (Enulose) 20 gm Q6H PRN PO CONSTIPATION Last administered on 08:18; Admin Dose 20 GM; Start 08/16/16 at 11:00 Polyethylene Glycol (Miralax) 17 gm DAILY PO Last administered on 08/17/16 09: 53; Admin Dose 17 GM; Start 08/16/16 at 11:00 Bisacodyl 10 mg 10 mg DAILY PRN [place] CONSTIPATION; Start 08/16/16 at 11:00 Sodium Chloride (NS) 1,000 ml @ 75 mls/hr [id number] IV Last administered on 08/18 06:20; Admin Dose 75 MLS/HR; Start 08/17/16 at 15:30 JOHNATHAN LENNON Aug 18, 2016 10:29
--- NOTE | 2016-08-18 11:24 | PN ---
DATE: The patient's abdominal examination remains benign. Her white blood cell count is normal without le ft shift. PLAN: Awaiting HIDA scan. I doubt that this represents cholecystitis. I will follow with you. Dictated By: KARON BARRIOS/JOLANTA Conf#: [id number] DID#: [id number]
--- NOTE | 2016-08-18 14:29 | RADRPT ---
PROCEDURE: Nuclear medicine hepatobiliary scan CLINICAL INDICATION: Right upper quadrant pain. Gallstones. TECHNIQUE: 8.7 mCi of technetium-99m Choletec was administered intravenously. Planar imaging of t he hepatobiliary system was performed. Delayed images were obtained. Images were reviewed on the h igh resolution PACS workstation. COMPARISON: Ultrasound abdomen dated 08/16/2016; CT scan abdomen dated 08/15/2016 FINDINGS: There is normal and homogeneous uptake throughout the hepatobiliary system. There is normal emptyin g of radiotracer into the biliary tract. The common bile duct is normal. The gallbladder is visual ized at 40 minutes. There is visualization of the small bowel at 60 minutes. IMPRESSION: 1. Negative hepatobiliary scan. There is normal filling of the gallbladder. 2. Patent common bile duct with appropriate visualization of the small bowel. RPTAT: HMJB .Bentley Hill MD, Date Time Electronically viewed and signed by .Bentley Hill MD, MD on 08/18/2016 14:29 .B/
[2016-08-19] VITALS (11 sets, daily range): BP systolic 108–142; BP diastolic 55–68; PULSE 67–81; RESP 16–18
[2016-08-19] MEDS: ALBUTEROL/IPRATROPIUM (NEB) 3 ML AMP HHN SCH ×6 (01:16→20:31)
[2016-08-19] MEDS: SOD CHLORIDE 0.9% 1,000 ML IV SCH ×2 (02:34→19:52)
[2016-08-19] MEDS: LEVOTHYROXINE 75 MCG TAB PO SCH (06:41)
[2016-08-19 07:03] LABS: BASOPHILS % 0.2 % (0.0-2.0); EOSINOPHILS # 0.3 10^3/ul (0.0-0.5); EOSINOPHILS % 4.1 % (0.0-7.0); HEMATOCRIT 34.8 % (37.0-47.0); HEMOGLOBIN 11.5 g/dl (12.0-16.0); LYMPHOCYTES % 14.9 % (15.0-51.0); MEAN CORPUSCULAR HEMOGLOBIN 33.1 pg (29.0-33.0); MEAN CORPUSCULAR VOLUME 100.1 fl (82.0-101.0); MONOCYTE # 0.9 10^3/ul (0.3-0.9); NEUTROPHIL # 4.7 10^3/ul (1.6-7.5); NEUTROPHILS % 67.8 % (39.0-77.0); PLATELET COUNT 131 10^3/UL (140-440); RED BLOOD COUNT 3.47 10^6/ul (4.20-5.40); RED CELL DISTRIBUTION WIDTH 16.2 % (11.5-14.5); UNCORRECTED WBC 6.9 10^3/ul (4.8-10.8); WHITE BLOOD COUNT 6.9 10^3/ul (4.8-10.8)
[2016-08-19 07:04] LABS: CREATININE 0.72 mg/dl (0.44-1.00)
[2016-08-19 07:05] LABS: CALCIUM 7.4 mg/dl (8.4-10.2)
[2016-08-19 07:28] LABS: CONDITION 1; LH ANALYZER COMMENTS 1
[2016-08-19] MEDS: SALMETEROL/FLUTICASONE 250/50 INHA INH SCH ×2 (09:24→21:19)
[2016-08-19] MEDS: GUAIFENESIN LA 600 MG TABSR PO SCH ×2 (09:25→21:19)
[2016-08-19] MEDS: POLYETHYLENE GLYCOL 17 GM PACKET PO SCH (09:25)
[2016-08-19] MEDS: DILTIAZEM (CD) 120 MG CAP PO SCH (09:25)
[2016-08-19] MEDS: FAMOTIDINE 20 MG TAB PO SCH ×2 (09:26→21:19)
[2016-08-19] MEDS: APIXABAN 5 MG TABLET PO SCH ×2 (09:26→21:19)
[2016-08-19] MEDS ORDERED: IPRA3AMP HHN (10:31)
[2016-08-19] MEDS ORDERED: APIX5TAB PO (10:31)
[2016-08-19] MEDS ORDERED: ADV25050 INH (10:31)
[2016-08-19] MEDS ORDERED: POLY17PO6 PO (10:31)
[2016-08-19] MEDS ORDERED: SENN-53 PO (10:31)
[2016-08-19] MEDS ORDERED: DILT120C77 PO (10:31)
--- NOTE | 2016-08-19 10:33 | PDOCDIS ---
Discharge Instructions DIAGNOSIS Discharge Diagnosis: 1. Respiratory failure secondary COPD 2. CHF with diastolic dysfunction 3 CONDITION Patient Condition: Stable HOME CARE INSTRUCTIONS: Diet Instructions: Low Fat /Cholesterol ACTIVITY: Activity Restrictions: Slowly Increase Activity Rest between Activity OTHER ORDERS: Other Orders: 1. Follow up with Dr. Benjamin Clemons in one week 2. Follow up with Dr. Paul Mora in one week JOHNATHAN LENNON Aug 19, 2016 10:33
--- NOTE | 2016-08-19 13:28 | PN ---
DATE: 08/19/2016 SUBJECTIVE: Patient is clinically stable, and the HIDA scan is negative. IMPRESSION: Asymptomatic Gallstones without obstruction. PLAN: There are no further surgical recommendations at this time. The patient is cleared for disch arge with outpatient followup. Dictated By: KARON BARRIOS/NTS Conf#: [id number] DID#: [id number]
--- NOTE | 2016-08-19 14:54 | DS ---
Date/Time of Note Date/Time of Note DATE: 08/19/16 TIME: 14:43 Discharge Summary Admission/Discharge Info Admit Date/Time Aug 06, 2016 at 20:44 Discharge Date/Time Final Diagnosis 1. Acute respiratory failure secondary to underlying COPD. 2. CHF with diastolic dysfunction. 3. Atrial Fibrillation. 4. Pulmonary hypertension. 5. Essential hypertension. 6. Hypothyroidism. 7. Osteoporosis. 8. Abdominal pain. 9. - T12 compression fracture with approximately 50-75% height loss with slight retropulsion. Patient Condition: Stable Consults 1. Dr. Germán Edwards 2. Dr. Paul Mora 3. Dr. Denilson Villar Hospital Course This is an 80-year-old female with history of CABG, CHF, hypertension, hypothyroidism, who came to [facility] due to reports of congestion and palpitations. Was reported that when she initially came to [facility] she had some wheezing and shortness of breath as well as productive cough. Chest x-ray did show her to have some emphysema. She was also found to be nasal fibrillation while in the hospital. She was seen by information and referral director and put on anticoagulation. Patient was also placed on bronchodilators for which she did tolerate well. She also provided with diuretic medication for her underlying CHF. Of note she did have echocardiogram with preserved ejection fraction. She was also seen with some pulmonary hypertension with PASP of 44 mmHg. We did continue her on oxygen for this issue. Patient did have some reports of abdominal pain during her course of stay. This pain was more notable on her left abdominal quadrant. CT scan of her abdomen did show her to have a distended gallbladder with cholelithiasis. For suspicion of cholecystitis surgeon was called. She did have HIDA scan that was negative for any kind of cholecystitis. She was otherwise optimized medically. She was continued on antihypertensives for hypertension and sedated for hypothyroidism. She was on bisphosphonates for osteoporosis. There was incidental finding after CT scan of her abdomen that did show her to have acute compression fracture with approximately 50-75% height loss with slight retropulsion. Patient denied any back pain. She was able to ambulate with frontwheel walker with physical therapy. Likely this fracture was chronic. She was able to participate well with physical therapy. During her course of stay she did improve. Her abdominal pain did resolve. Her breathing also did improve. After discussion with family was decided for [facility]. The plan of care was discussed with the patient and family and patient and family did verbalize their understanding. On the day of discharge patient was in stable condition Discussed plan of care with Dr. Nichole Disposition: halfway facility Discharge process time is 40 minutes Home Meds Active Scripts Albuterol Sulfate* (Proair HFA*) 8.5 Gm Hfa.aer.ad, 2 PUFF INH Q4H Y for WHEEZING AND SOB, #1 INHALER Prov:DESIRAE YEAGER MD 03/01/16 Reported Medications Levothyroxine Sodium* (Levothyroxine Sodium*) 75 Mcg Tablet, 75 MCG PO BEFORE BREAKFAST, #30 TAB 02/28/16 Alendronate Sodium* (Fosamax*) 70 Mg Tablet, 70 MG PO Q7D, TAB 11/08/14 Metoprolol Tartrate* (Lopressor*) 25 Mg Tab, 25 MG PO BID, TAB 11/08/14 Follow-up Plan CONDITION Patient Condition: Stable HOME CARE INSTRUCTIONS: Diet Instructions: Low Fat /Cholesterol ACTIVITY: Activity Restrictions: Slowly Increase Activity Rest between Activity OTHER ORDERS: Other Orders: 1. Further management and car per [facility] facility Pending Labs Laboratory Tests Test 08/19/16 05:28 Anion Gap 9 (8-16) Basophils # 0.010^3/ul (0.0-0.1) Basophils % 0.2% (0.0-2.0) Blood Morphology Comment Blood Urea Nitrogen 11mg/dl (7-20) Calcium Level 7.4mg/dl (8.4-10.2) Carbon Dioxide Level 27mmol/L (21-31) Chloride Level 107mmol/L (97-110) Creatinine 0.72mg/dl (0.44-1.00) Eosinophils # 0.310^3/ul (0.0-0.5) Eosinophils % 4.1% (0.0-7.0) Glucose Level 87mg/dl (70-220) Hematocrit 34.8% (37.0-47.0) Hemoglobin 11.5g/dl (12.0-16.0) Lymphocytes # 1.010^3/ul (0.8-2.9) Lymphocytes % 14.9% (15.0-51.0) Mean Corpuscular Hemoglobin 33.1pg (29.0-33.0) Mean Corpuscular Hemoglobin Concent 33.0g/dl (32.0-37.0) Mean Corpuscular Volume 100.1fl (82.0-101.0) Mean Platelet Volume 8.0fl (7.4-10.4) Monocytes # 0.910^3/ul (0.3-0.9) Monocytes % 13.0% (0.0-11.0) Neutrophils # 4.710^3/ul (1.6-7.5) Neutrophils % 67.8% (39.0-77.0) Nucleated Red Blood Cells # 0.010^3/ul (0.0-0.0) Nucleated Red Blood Cells % 0.0/100WBC (0.0-0.0) Platelet Count 74762^3/UL (140-440) Potassium Level 4.0mmol/L (3.5-5.1) Red Blood Count 3.4710^6/ul (4.20-5.40) Red Cell Distribution Width 16.2% (11.5-14.5) Sodium Level 139mmol/L (135-144) White Blood Count 6.910^3/ul (4.8-10.8) JOHNATHAN LENNON Aug 19, 2016 14:53
[2016-08-19] MEDS ORDERED: ALBU8.5H3 INH (16:13)
[2016-08-19 17:35] LABS: Allen Test ACCEPTAB; Arterial Base Excess -1.1 mmol/L (-3.0-3); Arterial COHb 0.1 % (0.0-3.0); Arterial Fraction of Oxyhgb 86.5 % (93.0-99.0); Arterial HCO3 23.8 mmol/L (22.0-26.0); Arterial MetHb 0.4 % (0.0-1.5); Arterial Total Hemglobin 12.9 g/dl (12.0-18.0); MODE ROOM AIR
[2016-08-20] VITALS (13 sets, daily range): BP systolic 103–149; BP diastolic 53–74; PULSE 70–101; RESP 16–20
[2016-08-20] MEDS: ALBUTEROL/IPRATROPIUM (NEB) 3 ML AMP HHN SCH ×6 (02:12→20:59)
[2016-08-20] MEDS: LEVOTHYROXINE 75 MCG TAB PO SCH (06:15)
[2016-08-20 06:57] LABS: BASOPHILS % 0.2 % (0.0-2.0); EOSINOPHILS # 0.3 10^3/ul (0.0-0.5); EOSINOPHILS % 3.8 % (0.0-7.0); HEMATOCRIT 35.2 % (37.0-47.0); HEMOGLOBIN 11.7 g/dl (12.0-16.0); LYMPHOCYTES # 1.1 10^3/ul (0.8-2.9); LYMPHOCYTES % 16.8 % (15.0-51.0); MEAN CORPUSCULAR HGB CONC 33.2 g/dl (32.0-37.0); MEAN CORPUSCULAR VOLUME 99.6 fl (82.0-101.0); MEAN PLATELET VOLUME 7.9 fl (7.4-10.4); MONOCYTE # 0.7 10^3/ul (0.3-0.9); MONOCYTES % 10.7 % (0.0-11.0); NEUTROPHIL # 4.5 10^3/ul (1.6-7.5); NEUTROPHILS % 68.5 % (39.0-77.0); PLATELET COUNT 145 10^3/UL (140-440); RED BLOOD COUNT 3.54 10^6/ul (4.20-5.40); RED CELL DISTRIBUTION WIDTH 16.3 % (11.5-14.5); UNCORRECTED WBC 6.6 10^3/ul (4.8-10.8); WHITE BLOOD COUNT 6.6 10^3/ul (4.8-10.8)
[2016-08-20 06:59] LABS: CONDITION 1; LH ANALYZER COMMENTS 1; POTASSIUM 4.7 mmol/L (3.5-5.1)
[2016-08-20 07:01] LABS: CREATININE 0.79 mg/dl (0.44-1.00)
[2016-08-20 07:02] LABS: CALCIUM 7.9 mg/dl (8.4-10.2)
[2016-08-20] MEDS: APIXABAN 5 MG TABLET PO SCH ×3 (09:00→20:46)
[2016-08-20] MEDS: SALMETEROL/FLUTICASONE 250/50 INHA INH SCH ×2 (09:11→20:46)
[2016-08-20] MEDS: DILTIAZEM (CD) 120 MG CAP PO SCH (09:12)
[2016-08-20] MEDS: GUAIFENESIN LA 600 MG TABSR PO SCH ×2 (09:12→20:46)
[2016-08-20] MEDS: POLYETHYLENE GLYCOL 17 GM PACKET PO SCH (09:12)
[2016-08-20] MEDS: FAMOTIDINE 20 MG TAB PO SCH ×2 (09:13→20:46)
[2016-08-20] MEDS: SOD CHLORIDE 0.9% 1,000 ML IV SCH (15:14)
--- NOTE | 2016-08-20 16:05 | PN ---
Date/Time of Note Date/Time of Note DATE: 08/20/16 TIME: 15:54 Assessment/Plan VTE Prophylaxis VTE Prophylaxis Intervention: other (eliquis) Lines/Catheters IV [facility]ter [facility] (from [facility]): Peripheral IV Urinary Cath still in place: No Assessment/Plan Chief Complaint/Hosp Course Assessment and plan 1. Acute respiratory failure secondary to underlying COPD. Continue on bronchodilator. Continue on O2 supplementation titrate down as tolerated 2. CHF with diastolic dysfunction. Patient with echocardiogram with preserved ejection fraction. Continue on diuretic medication 3. Atrial Fibrillation. Continue on diltiazem. Continue on anticoagulation. 4. Pulmonary hypertension. Patient noted with PASP of 44 mmHg. Continue O2 supplement 5. Essential hypertension. Continue on anti-hypertensives and adjust as needed 6. Hypothyroidism. Continue on Synthroid 7. Osteoporosis. Continue on bisphosphonates 8. Abdominal pain. Per abdominal imaging: - Distended gallbladder with cholelithiasis. Consider further evaluation with an ultrasound. - Small bilateral pleural effusions with bibasilar infiltrates. - Stool filled large bowel. - 5 mm nonobstructing left renal stone. surgeon consulted. HIDA scan negative 9. - T12 compression fracture with approximately 50-75% height loss with slight retropulsion. Patient denies any back pain. Able to ambulate with PT and fww. Likely old fracture. Will monitor and get surgical consultation pending clinical course DVT prophylaxis: Eliquis GERD prophylaxis: H2 mayank Disposition and plan: Patient was planned for d/c 08/19/16 but o2 for home was not available. Awaiting home o2 set up prior to d/c will follow up Discussed plan of care with Dr. Valencia Problems: Subjective 24 Hr Interval Summary Free Text/Dictation resting at this time. comfortable at present Exam/Review of Systems Vital Signs Vitals Vital Signs Date Time Temp Pulse Resp B/P Pulse Ox O2 Delivery O2 Flow Rate FiO2 08/20/16 13:58 82 16 99 Nasal Cannula 2.0 28 08/20/16 12:01 96.5 133/74 Intake and Output 08/19/16 08/19/16 08/20/16 15:00 23:00 07:00 Intake Total 1220 ml 400 ml Balance 1220 ml 400 ml Exam General: no s/s of distress at this time Eyes: pupils equal round, Anicteric sclera Neck: Supple nontender, no JVD Cardiac: S1, S2 auscultated, regular rhythm and rate Pulmonary: Diminished at lung bases GI: Abdomen soft nontender nondistended, bowel sounds active Extremities: No edema bilateral lower extremities Skin: Clean dry and intact Neurologic: Alert to person place and time and situation Results Result Diagram: 08/20/16 0625 08/20/16 0625 Results 24 hrs Laboratory Tests Test 08/19/16 16:15 08/20/16 06:25 Arterial Blood HCO3 23.8 Arterial Blood Base Excess -1.1 Arterial Blood Oxygen Saturation 86.9 L Guilherme Test ACCEPTAB Arterial Blood Gas Puncture Site Right Radial Arterial Blood Carboxyhemoglobin 0.1 Arterial Blood Date Drawn 08/19/2016 5:15:04 PM Arterial Blood Methemoglobin 0.4 Arterial Blood pCO2 (Temp correct) 40.3 Arterial Blood pH (Temp corrected) 7.389 Arterial Blood pO2 (Temp corrected) 51.5 *L Blood Gas A-a O2 Differential 50.0 H Blood Gas Critical Value Read Back [place] Blood Gas Modality ROOM AIR Blood Gas Notified Time 08/19/2016 5:35:20 PM Blood Gas Notified Whom CW Blood Gas Specimen Source Blood arterial Blood Gas Temperature 37.0 FiO2 21.0 Oxyhemoglobin Percent 86.5 L Total Hemoglobin 12.9 Anion Gap 11 Basophils # 0.0 Basophils % 0.2 Blood Morphology Comment Blood Urea Nitrogen 10 Calcium Level 7.9 L Carbon Dioxide Level 28 Chloride Level 109 Creatinine 0.79 Eosinophils # 0.3 Eosinophils % 3.8 Glucose Level 93 Hematocrit 35.2 L Hemoglobin 11.7 L Lymphocytes # 1.1 Lymphocytes % 16.8 Mean Corpuscular Hemoglobin 33.0 Mean Corpuscular Hemoglobin Concent 33.2 Mean Corpuscular Volume 99.6 Mean Platelet Volume 7.9 Monocytes # 0.7 Monocytes % 10.7 Neutrophils # 4.5 Neutrophils % 68.5 Nucleated Red Blood Cells # 0.0 Nucleated Red Blood Cells % 0.0 Platelet Count 145 Potassium Level 4.7 Red Blood Count 3.54 L Red Cell Distribution Width 16.3 H Sodium Level 143 White Blood Count 6.6 Medications Medications Current Medications Alendronate Sodium (Fosamax) 70 mg Tu@0730 PO Last administered on 08/14/16t 08 :13; Admin Dose 70 MG; Start 08/07/16 at 07:30 Ondansetron HCl (Zofran Inj) 4 mg Q6H PRN IV NAUSEA AND/OR VOMITING; Start 08/06 at 21:00 Docusate Sodium (Colace) 250 mg DAILY PRN PO CONSTIPATION Last administered on 08/18/16 08:17; Admin Dose 250 MG; Start 08/06/16 at 21:00 Senna (Senokot) 2 tab QHS PRN PO CONSTIPATION Last administered on 08/16/16 21 :08; Admin Dose 2 TAB; Start 08/06/16 at 21:00 Famotidine (Pepcid) 10 mg BID PO Last administered on 08/20/16 09:13; Admin Dose 10 MG; Start 08/07/16 at 21:00 Apixaban (Eliquis) 5 mg BID PO Last administered on 08/20/16 15:15; Admin Dose 5 MG; Start 08/07/16 at 21:00 Acetaminophen (Tylenol Tab) 650 mg Q6H PRN PO PAIN AND OR ELEVATED TEMP Last administered on 08/11/16 06:09; Admin Dose 650 MG; Start 08/07/16 at 20:00 Guaifenesin/ Dextromethorphan (Robitussin Dm Liquid Cup) 5 ml Q4H PRN PO Cough Last administered on 08/08/16 18:20; Admin Dose 5 ML; Start 08/08/16 at 10:30 Salmeterol Xinafoate/ Fluticasone (Advair 250/50 Diskus) 1 inh BID INH Last administered on 08/20/16 09:11; Admin Dose 1 INH; Start 08/14/16 at 10:30 Guaifenesin (Mucinex) 600 mg BID PO Last administered on 08/20/16 09:12; Admin Dose 600 MG; Start 08/14/16 at 11:00 Diltiazem HCl (Cardizem Cd) 120 mg DAILY PO Last administered on 08/20/16 09: 12; Admin Dose 120 MG; Start 08/16/16 at 09:00 Morphine Sulfate (morphine) 2 mg Q4H PRN IV PAIN LEVEL 7-10; Start 08/15/16 at 15:30 Acetaminophen/ Hydrocodone Bitart ([place] (5/325)) 1 tab Q4H PRN PO PAIN LEVEL 4 -7 Last administered on 08/17/16 21:09; Admin Dose 1 TAB; Start 08/15/16 at 15: 30 Lactulose (Enulose) 20 gm Q6H PRN PO CONSTIPATION Last administered on 08:18; Admin Dose 20 GM; Start 08/16/16 at 11:00 Polyethylene Glycol (Miralax) 17 gm DAILY PO Last administered on 08/20/16 09: 12; Admin Dose 17 GM; Start 08/16/16 at 11:00 Bisacodyl 10 mg 10 mg DAILY PRN ND CONSTIPATION; Start 08/16/16 at 11:00 Sodium Chloride (NS) 1,000 ml @ 75 mls/hr [id number] IV Last administered on 08/20 15:14; Admin Dose 75 MLS/HR; Start 08/17/16 at 15:30 JOHNATHAN LENNON Aug 20, 2016 16:05
[2016-08-21] VITALS (9 sets, daily range): BP systolic 122–154; BP diastolic 57–75; PULSE 60–85; RESP 18
[2016-08-21] MEDS: ALBUTEROL/IPRATROPIUM (NEB) 3 ML AMP HHN SCH ×5 (01:50→16:09)
[2016-08-21] MEDS: SOD CHLORIDE 0.9% 1,000 ML IV SCH (06:12)
[2016-08-21] MEDS: LEVOTHYROXINE 75 MCG TAB PO SCH (06:13)
[2016-08-21 08:12] LABS: POTASSIUM 4.3 mmol/L (3.5-5.1)
[2016-08-21 08:15] LABS: CREATININE 0.78 mg/dl (0.44-1.00)
[2016-08-21 08:16] LABS: CALCIUM 7.8 mg/dl (8.4-10.2)
[2016-08-21] MEDS: ALENDRONATE 70 MG TAB PO SCH (08:39)
[2016-08-21] MEDS: APIXABAN 5 MG TABLET PO SCH (08:39)
[2016-08-21] MEDS: DILTIAZEM (CD) 120 MG CAP PO SCH (08:40)
[2016-08-21] MEDS: FAMOTIDINE 20 MG TAB PO SCH (08:41)
[2016-08-21] MEDS: POLYETHYLENE GLYCOL 17 GM PACKET PO SCH (08:42)
[2016-08-21] MEDS: GUAIFENESIN LA 600 MG TABSR PO SCH (08:42)
[2016-08-21] MEDS: SALMETEROL/FLUTICASONE 250/50 INHA INH SCH (09:00)
[2016-08-21 09:02] LABS: BASOPHILS % 0.3 % (0.0-2.0); EOSINOPHILS # 0.2 10^3/ul (0.0-0.5); EOSINOPHILS % 3.6 % (0.0-7.0); HEMATOCRIT 34.8 % (37.0-47.0); HEMOGLOBIN 11.4 g/dl (12.0-16.0); LYMPHOCYTES # 0.9 10^3/ul (0.8-2.9); LYMPHOCYTES % 14.3 % (15.0-51.0); MEAN CORPUSCULAR HGB CONC 32.6 g/dl (32.0-37.0); MEAN CORPUSCULAR VOLUME 101.1 fl (82.0-101.0); MEAN PLATELET VOLUME 7.9 fl (7.4-10.4); MONOCYTE # 0.5 10^3/ul (0.3-0.9); MONOCYTES % 9.1 % (0.0-11.0); NEUTROPHIL # 4.4 10^3/ul (1.6-7.5); NEUTROPHILS % 72.7 % (39.0-77.0); PLATELET COUNT 142 10^3/UL (140-440); RED BLOOD COUNT 3.44 10^6/ul (4.20-5.40); RED CELL DISTRIBUTION WIDTH 16.7 % (11.5-14.5); UNCORRECTED WBC 6.1 10^3/ul (4.8-10.8); WHITE BLOOD COUNT 6.1 10^3/ul (4.8-10.8)
[2016-08-21 09:12] LABS: CONDITION 1; LH ANALYZER COMMENTS 1
--- NOTE | 2016-08-21 10:51 | PN ---
Date/Time of Note Date/Time of Note DATE: 08/21/16 TIME: 10:50 Assessment/Plan VTE Prophylaxis VTE Prophylaxis Intervention: other (Eliquis ) Lines/Catheters IV [facility]ter Type (from [facility]): Peripheral IV Urinary Cath still in place: No Assessment/Plan Assessment/Plan 1. Acute respiratory failure secondary to underlying COPD. Continue on bronchodilator. Continue on O2 supplementation titrate down as tolerated 2. CHF with diastolic dysfunction. Patient with echocardiogram with preserved ejection fraction. Continue on diuretic medication 3. Atrial Fibrillation. Continue on diltiazem. Continue on anticoagulation. 4. Pulmonary hypertension. Patient noted with PASP of 44 mmHg. Continue O2 supplement 5. Essential hypertension. Continue on anti-hypertensives and adjust as needed 6. Hypothyroidism. Continue on Synthroid 7. Osteoporosis. Continue on bisphosphonates 8. Abdominal pain. Per abdominal imaging: - Distended gallbladder with cholelithiasis. Consider further evaluation with an ultrasound. - Small bilateral pleural effusions with bibasilar infiltrates. - Stool filled large bowel. - 5 mm nonobstructing left renal stone. surgeon consulted. HIDA scan negative 9. - T12 compression fracture with approximately 50-75% height loss with slight retropulsion. Patient denies any back pain. Able to ambulate with PT and fww. Likely old fracture. Will monitor and get surgical consultation pending clinical course DVT prophylaxis: Eliquis GERD prophylaxis: H2 mayank Disposition and plan: Awaiting home o2 set up prior to d/c will follow up Subjective 24 Hr Interval Summary Free Text/Dictation awaiting home oxygen set up, doing ok, BP stable Exam/Review of Systems Vital Signs Vitals Vital Signs Date Time Temp Pulse Resp B/P Pulse Ox O2 Delivery O2 Flow Rate FiO2 08/21/16 09:55 60 16 99 Nasal Cannula 2.0 08/21/16 07:26 98.0 122/57 08/20/16 16:33 28 Intake and Output 08/20/16 08/20/16 08/21/16 15:00 23:00 07:00 Intake Total 700 ml 150 ml Balance 700 ml 150 ml Exam General: no s/s of distress at this time Eyes: pupils equal round, Anicteric sclera Neck: Supple nontender, no JVD Cardiac: S1, S2 auscultated, regular rhythm and rate Pulmonary: Diminished at lung bases GI: Abdomen soft nontender nondistended, bowel sounds active Extremities: No edema bilateral lower extremities Skin: Clean dry and intact Neurologic: Alert to person place and time and situation Results Result Diagram: 08/21/16 0751 08/21/16 0751 Results 24 hrs Laboratory Tests Test 08/21/16 07:51 Anion Gap 10 Basophils # 0.0 Basophils % 0.3 Blood Morphology Comment Blood Urea Nitrogen 9 Calcium Level 7.8 L Carbon Dioxide Level 27 Chloride Level 110 Creatinine 0.78 Eosinophils # 0.2 Eosinophils % 3.6 Glucose Level 89 Hematocrit 34.8 L Hemoglobin 11.4 L Lymphocytes # 0.9 Lymphocytes % 14.3 L Mean Corpuscular Hemoglobin 33.0 Mean Corpuscular Hemoglobin Concent 32.6 Mean Corpuscular Volume 101.1 H Mean Platelet Volume 7.9 Monocytes # 0.5 Monocytes % 9.1 Neutrophils # 4.4 Neutrophils % 72.7 Nucleated Red Blood Cells # 0.0 Nucleated Red Blood Cells % 0.0 Platelet Count 142 Potassium Level 4.3 Red Blood Count 3.44 L Red Cell Distribution Width 16.7 H Sodium Level 143 White Blood Count 6.1 Medications Medications Current Medications Alendronate Sodium (Fosamax) 70 mg Tu@0730 PO Last administered on 08/14/16 08 :13; Admin Dose 70 MG; Start 08/07/16 at 07:30 Ondansetron HCl (Zofran Inj) 4 mg Q6H PRN IV NAUSEA AND/OR VOMITING; Start 08/06 at 21:00 Docusate Sodium (Colace) 250 mg DAILY PRN PO CONSTIPATION Last administered on 08/18/16 08:17; Admin Dose 250 MG; Start 08/06/16 at 21:00 Senna (Senokot) 2 tab QHS PRN PO CONSTIPATION Last administered on 08/16/16 21 :08; Admin Dose 2 TAB; Start 08/06/16 at 21:00 Famotidine (Pepcid) 10 mg BID PO Last administered on 08/21/16 08:41; Admin Dose 10 MG; Start 08/07/16 at 21:00 Apixaban (Eliquis) 5 mg BID PO Last administered on 08/21/16 08:39; Admin Dose 5 MG; Start 08/07/16 at 21:00 Acetaminophen (Tylenol Tab) 650 mg Q6H PRN PO PAIN AND OR ELEVATED TEMP Last administered on 08/11/16 06:09; Admin Dose 650 MG; Start 08/07/16 at 20:00 Guaifenesin/ Dextromethorphan (Robitussin Dm Liquid Cup) 5 ml Q4H PRN PO Cough Last administered on 08/08/16 18:20; Admin Dose 5 ML; Start 08/08/16 at 10:30 Salmeterol Xinafoate/ Fluticasone (Advair 250/50 Diskus) 1 inh BID INH Last administered on 08/20/16 20:46; Admin Dose 1 INH; Start 08/14/16 at 10:30 Guaifenesin (Mucinex) 600 mg BID PO Last administered on 08/21/16 08:42; Admin Dose 600 MG; Start 08/14/16 at 11:00 Diltiazem HCl (Cardizem Cd) 120 mg DAILY PO Last administered on 08/21/16 08: 40; Admin Dose 120 MG; Start 08/16/16 at 09:00 Morphine Sulfate (morphine) 2 mg Q4H PRN IV PAIN LEVEL 7-10; Start 08/15/16 at 15:30 Acetaminophen/ Hydrocodone Bitart ([place] (5/325)) 1 tab Q4H PRN PO PAIN LEVEL 4 -7 Last administered on 08/17/16 21:09; Admin Dose 1 TAB; Start 08/15/16 at 15: 30 Lactulose (Enulose) 20 gm Q6H PRN PO CONSTIPATION Last administered on 08:18; Admin Dose 20 GM; Start 08/16/16 at 11:00 Polyethylene Glycol (Miralax) 17 gm DAILY PO Last administered on 08/20/16 09: 12; Admin Dose 17 GM; Start 08/16/16 at 11:00 Bisacodyl 10 mg 10 mg DAILY PRN [place] CONSTIPATION; Start 08/16/16 at 11:00 Sodium Chloride (NS) 1,000 ml @ 75 mls/hr [id number] IV Last administered on 08/21 06:12; Admin Dose 75 MLS/HR; Start 08/17/16 at 15:30 VASILIY GARCIA MD Aug 21, 2016 10:51
--- NOTE | 2016-08-22 22:00 | DS ---
DATE OF ADMISSION: 08/06/2016 DATE OF DISCHARGE: 08/21/2016 FINAL DISCHARGE DIAGNOSES: 1. Acute respiratory failure secondary to underlying chronic obstructive pulmonary disease. 2. Acute chronic obstructive pulmonary disease exacerbation. 3. Acute congestive heart failure exacerbation with diastolic heart failure. 4. Atrial fibrillation with rapid ventricular rate. 5. Pulmonary hypertension. 6. History of hypertension. 7. History of hypothyroidism. 8. Osteoporosis. 9. Intractable abdominal pain. 10. T12 compression fracture with approximately 50% to 75% height loss. CONSULTATIONS DONE DURING THIS HOSPITALIZATION: 1. General surgery consult, Dr. Germán Edwards. 2. Cardiology consult, Dr. Paul Mora. 3. Pulmonary consult, Dr. Denilson Villar. HOSPITAL COURSE: This is an 80-year-old female with a past medical history of hypertension, hyperli pidemia, hypothyroidism, osteoporosis, history of atrial fibrillation and CHF with diastolic heart f ailure who presented with a complaint of shortness of breath. The patient is noted to have acute CH F exacerbation and acute respiratory failure secondary to a combination of CHF and COPD. She was tr eated with IV antibiotics, IV Solu-Medrol and IV Lasix diuresis. The patient had atrial fibrillatio n with rapid ventricular rate. The patient had very high pulmonary pressures of 44. She had a CT o f the abdomen done for abdominal pain workup. There was some suspicion for cholecystitis. The oscar ent had a HIDA scan which was negative for any acute cholecystitis, so she did not require any surgi mary anne intervention. She slowly gradually improved back to the normal baseline status, and the patient 's family decided to take her to the group home facility as outpatient and she got discharged t lakshmi on 08/21/2016. DISPOSITION: To group home facility. DISCHARGE CONDITION: Stable and improved compared to admission. DISCHARGE ACTIVITIES: As tolerated, slowly resume to the normal baseline activity. DISCHARGE MEDICATIONS: As per medical reconciliation. The patient is to follow up with her own [facility] doctor and other subspecialist physician as outpatient in 1 to 2 weeks after discharge. S he has been explained about the discharge plan and followup instructions. She understood and verbal ized understanding. Dictated By: VASILIY GARCIA MD, KP/JOLANTA Conf#: [id number] DID#: [id number]
== END 2016-08-21 16:30 | disposition home health service (06) | DRG 291 ==
LOC: E/R 16:46 → TEL 20:44
PROVIDERS: ADMIT Family Medicine; ATTEND Family Medicine
DX: I11.0 Hypertensive heart disease with heart failure (principal); J96.01 Acute respiratory failure with hypoxia; J44.0 Chronic obstructive pulmonary disease with (acute) lower respiratory infection; M80.08XA Age-related osteoporosis with current pathological fracture, vertebra(e), initial encounter for fracture; J44.1 Chronic obstructive pulmonary disease with (acute) exacerbation; I50.33 Acute on chronic diastolic (congestive) heart failure; I27.2 Other secondary pulmonary hypertension; E03.9 Hypothyroidism, unspecified; I48.0 Paroxysmal atrial fibrillation; J20.9 Acute bronchitis, unspecified; K59.00 Constipation, unspecified; I35.1 Nonrheumatic aortic (valve) insufficiency; I36.1 Nonrheumatic tricuspid (valve) insufficiency; E87.5 Hyperkalemia; R00.2 Palpitations; K80.20 Calculus of gallbladder without cholecystitis without obstruction
CPT/HCPCS: 36415; 36600; 71010; 74176; 76705; 78226; 80048; 80053; 80061; 80076; 81001; 81003; 82550; 82553; 82803; 83690; 83735; 83880; 84100; 84443; 84484; 85025; 85610; 85730; 87040; 87070; 87086; 87400; 92526; 92610; 93005; 94640; 94664; 96365; 96375; 97110; 97116; 97162; 97530; J1940; A9537; J0456; J0696; J1650; J2920; J2930; J7030; J7050; J7512

== ENCOUNTER 2018-03-03 00:14 | Inpatient (IN) | END 2018-03-06 18:42 | disposition home or self-care (01) | DRG 291 ==